=== PATIENT | female | born 1945 | race Caucasian/White ===

== ENCOUNTER 2020-10-05 08:48 | Outpatient (REF) | payer MEDICARE, SELFPAY ==
[2020-10-05 10:54] LABS: Anion Gap 14 (12-20); Blood Urea Nitrogen 27 mg/dL (9-16); Carbon Dioxide 22 mmol/L (22-29); Chloride 108 mmol/L (96-108); Estimated Glomerular Filt Rate 51; Glucose Fasting 196 mg/dL (60-99); Potassium 4.9 mmol/L (3.3-5.1); Sodium 139 mmol/L (135-145); Uric Acid 5.1 mg/dL (2.4-5.7)
[2020-10-05 10:58] LABS: Estimated Average Glucose 148 mg/dL; Hemoglobin A1c % 6.8 %
[2020-10-05 11:09] LABS: Microalbum/Creatinine Ratio Ur 55.7 ug/mg cr
== END 2020-10-05 08:49 | disposition home or self-care (01) ==
LOC: HO.10HDL 08:48
PROVIDERS: Visit Provider Family Medicine
DX: I10 Essential (primary) hypertension (principal); E11.9 Type 2 diabetes mellitus without complications; M10.9 Gout, unspecified
CPT/HCPCS: 36415; 80051; 82043; 82565; 82947; 83036; 84520; 84550

== ENCOUNTER 2021-01-29 12:42 | Outpatient (REF) | payer MEDICARE, SELFPAY ==
--- NOTE | ~2021-01-29 | MM_ITS ---
EXAMINATION: MM SCREENING DIGITAL BREAST TOMOSYNTHESIS, BILATERAL CLINICAL INFORMATION: Screening. Asymptomatic. The lifetime risk of breast cancer based on the Tyrer-Cuzick Model is 4%. COMPARISON: Mammography: 12/29/2018, 11/30/2017, 11/20/2016 TECHNIQUE: Digital breast tomosynthesis is performed in both the craniocaudal and mediolateral oblique views along with computer-aided detection (CAD). Synthesized 2D images are generated from the tomosynthesis. Additional left MLO view is provided. FINDINGS: There are scattered areas of fibroglandular density (ACR BI-RADS breast composition Category b). There are no significant masses, abnormal calcifications, or other abnormalities. Parenchymal pattern is similar to prior exams. No developing density. There are scattered bilateral benign round and rim predominantly dermal calcifications again noted similar to prior studies. MM/MM tomosynthesis screening BI IMPRESSION: No mammographic evidence of malignancy. ASSESSMENT: BI-RADS 2: Benign RECOMMENDATION: Routine annual mammography screening. This patient's information was entered into a reminder system with a target due date for their next mammogram.
== END 2021-01-29 12:43 | disposition home or self-care (01) ==
LOC: HO.MAMMO 12:42
PROVIDERS: Visit Provider Family Medicine
DX: Z12.31 Encounter for screening mammogram for malignant neoplasm of breast (principal)
CPT/HCPCS: 77063; 77067

== ENCOUNTER 2021-03-25 09:11 | Outpatient (REF) | payer MEDICARE, SELFPAY ==
[2021-03-25 11:16] LABS: Anion Gap 13 (12-20); Blood Urea Nitrogen 36 mg/dL (9-16); Carbon Dioxide 25 mmol/L (22-29); Chloride 107 mmol/L (96-108); Estimated Glomerular Filt Rate 37; Glucose Fasting 177 mg/dL (60-99); Potassium 4.4 mmol/L (3.3-5.1); Sodium 141 mmol/L (135-145)
[2021-03-25 11:46] LABS: Estimated Average Glucose 151 mg/dL; Hemoglobin A1c % 6.9 %
== END 2021-03-25 09:12 | disposition home or self-care (01) ==
LOC: HO.10HDL 09:11
PROVIDERS: PCP Family Medicine; Visit Provider Family Medicine
DX: I10 Essential (primary) hypertension (principal); E11.9 Type 2 diabetes mellitus without complications
CPT/HCPCS: 36415; 80051; 82565; 82947; 83036; 84520

== ENCOUNTER 2021-06-20 09:49 | Outpatient (REF) | payer MEDICARE, SELFPAY ==
[2021-06-20 10:36] LABS: MANUAL DIFF FLAG NO
[2021-06-20 10:40] LABS: Basophils Percent Auto 0.8 % (0-2); Eosinophils Absolute Auto 0.2 X10*3/uL (0.0-0.4); Hematocrit 37.7 % (37.0-47.0); Hemoglobin 12.3 g/dl (12.0-16.0); Imm Gran Abs Auto 0.02 X10*3/uL (0.00-0.03); Imm Gran Pct Auto 0.5 % (0.0-0.4); Lymphocytes Absolute Auto 1.1 X10*3/uL (1.2-4.9); Lymphocytes Percent Auto 30.2 % (20-40); Mean Corpuscular HGB Conc 32.6 g/dl (31.0-35.0); Mean Corpuscular Hemoglobin 32.5 pg (27.0-33.0); Mean Corpuscular Volume 99.5 fL (80.0-98.0); Mean Platelet Volume 9.7 fL (9.4-12.3); Monocytes Absolute Auto 0.4 X10*3/uL (0.1-1.2); Monocytes Percent Auto 10.6 % (2-11); Neutrophils Absolute Auto 2.03 x10*3/uL (2.0-8.3); Neutrophils Percent Auto 53.9 % (45-73); Platelet Count 179 X10*3/uL (160-400); Red Blood Count 3.79 X10*6/uL (4.20-5.50); Red Cell Distribution Width 13.3 % (11.0-16.0); White Blood Count 3.8 X10*3/uL (4.8-10.8)
[2021-06-20 10:56] LABS: Blood Urea Nitrogen 33 mg/dL (9-16); Estimated Glomerular Filt Rate 41
== END 2021-06-20 09:50 | disposition home or self-care (01) ==
LOC: HO.10HDL 09:49
PROVIDERS: Visit Provider Family Medicine
DX: I10 Essential (primary) hypertension (principal); D72.819 Decreased white blood cell count, unspecified
CPT/HCPCS: 36415; 82565; 84520; 85025

== ENCOUNTER 2021-07-25 10:55 | Outpatient (REF) | payer MEDICARE, SELFPAY ==
[2021-07-25 14:28] LABS: Estimated Average Glucose 148 mg/dL; Hemoglobin A1c % 6.8 %
[2021-07-25 14:42] LABS: Anion Gap 12 (12-20); Blood Urea Nitrogen 47 mg/dL (9-16); Carbon Dioxide 26 mmol/L (22-29); Chloride 108 mmol/L (96-108); Estimated Glomerular Filt Rate 31; Glucose Fasting 159 mg/dL (60-99); Potassium 5.5 mmol/L (3.3-5.1); Sodium 140 mmol/L (135-145)
== END 2021-07-25 10:56 | disposition home or self-care (01) ==
LOC: HO.10HDL 10:55
PROVIDERS: Visit Provider Family Medicine
DX: I10 Essential (primary) hypertension (principal); E11.9 Type 2 diabetes mellitus without complications
CPT/HCPCS: 36415; 80051; 82565; 82947; 83036; 84520

== ENCOUNTER 2021-10-18 09:43 | Outpatient (REF) | payer MEDICARE, SELFPAY ==
[2021-10-18 12:06] LABS: MANUAL DIFF FLAG NO
[2021-10-18 12:09] LABS: Basophils Percent Auto 0.7 % (0-2); Eosinophils Absolute Auto 0.1 X10*3/uL (0.0-0.4); Eosinophils Percent Auto 3.4 % (0-4); Hematocrit 39.5 % (37.0-47.0); Hemoglobin 12.9 g/dl (12.0-16.0); Imm Gran Abs Auto 0.01 X10*3/uL (0.00-0.03); Imm Gran Pct Auto 0.2 % (0.0-0.4); Lymphocytes Absolute Auto 1.3 X10*3/uL (1.2-4.9); Lymphocytes Percent Auto 30.1 % (20-40); Mean Corpuscular HGB Conc 32.7 g/dl (31.0-35.0); Mean Platelet Volume 9.6 fL (9.4-12.3); Monocytes Absolute Auto 0.4 X10*3/uL (0.1-1.2); Monocytes Percent Auto 10.6 % (2-11); Neutrophils Absolute Auto 2.3 x10*3/uL (2.0-8.3); Platelet Count 193 X10*3/uL (160-400); Red Blood Count 4.03 X10*6/uL (4.20-5.50); Red Cell Distribution Width 13.2 % (11.0-16.0); White Blood Count 4.2 X10*3/uL (4.8-10.8)
[2021-10-18 12:28] LABS: Alanine Aminotransferase 16 U/L (0-31); Albumin Level 4.2 g/dL (3.5-5.0); Alkaline Phosphatase 52 U/L (39-117); Anion Gap 12 (12-20); Aspartate Amino Transferase 19 U/L (5-31); Bilirubin Total 0.5 mg/dL (0.0-1.0); Blood Urea Nitrogen 34 mg/dL (9-16); Carbon Dioxide 27 mmol/L (22-29); Chloride 104 mmol/L (96-108); Estimated Glomerular Filt Rate 51; Glucose Fasting 202 mg/dL (60-99); Potassium 4.4 mmol/L (3.3-5.1); Sodium 139 mmol/L (135-145)
== END 2021-10-18 09:44 | disposition home or self-care (01) ==
LOC: HO.10HDL 09:43
PROVIDERS: Visit Provider Family Medicine
DX: R06.02 Shortness of breath (principal); N18.30 Chronic kidney disease, stage 3 unspecified; E83.52 Hypercalcemia
CPT/HCPCS: 36415; 80053; 85025

== ENCOUNTER → 2022-01-23 09:31 | Outpatient (REF) | payer MEDICARE, SELFPAY ==
--- NOTE | 2022-01-23 09:35 | CA_ITS ---
Transthoracic Echocardiogram Patient (Last, First, Middle): Cristy Simmons M Gender: Female Date of : 1945 Age: 76 Procedure Date: 01/23/2022 Procedure Type: Transthoracic Echocardiogram Location: OP Height: 162.56 cm Weight: 117.94 kg BSA: 2.19 m2 Heart Rate: bpm BP: 118 / 70 mmHg Business Systems Manager: JAI Referring MD: Nhan Simons MD Symptoms: R01.1 [place], I25.10 ASCD W/O ANGINA Study Quality: Adequate ECG Rhythm: Sinus Conclusions: - The left ventricular systolic function is normal. The calculated ejection fraction is 63% by biplane method. - There is mild aortic valve stenosis. Findings Left Ventricle Normal left ventricular cavity size. There is mildly increased left ventricular wall thickness. The left ventricular systolic function is normal. The calculated ejection fraction is 63% by biplane method. Regional wall motion abnormalities can not be excluded due to suboptimal endocardial definition. E/E prime ratio is between 8 and 15 consistent with indeterminate filling pressures. Evidence suggests grade I (mild) diastolic dysfunction. Right Ventricle Normal right ventricular cavity size. There is normal right ventricular systolic function. Atria The left atrium is mildly dilated. The right atrium is normal in size. Aortic Valve There is moderate calcification of the aortic valve. There is mild aortic valve stenosis. The mean gradient is 9 mmHg. The aortic valve area is 1.43 cm2. There is no aortic valve regurgitation. Dimensionless index 0.38. Mitral Valve There is mild mitral annular calcification. There is trace mitral valve regurgitation. There is no mitral valve stenosis. Pulmonic Valve The pulmonic valve is likely normal. Tricuspid Valve There is trace tricuspid valve regurgitation. The pulmonary artery systolic pressure is normal. Great Vessels The aortic annulus, sinuses of valsalva, and asc aorta are normal in size. Venous The inferior vena cava is normal in size and collapses greater than 50% with inspiration. Pericardium/Pleural There is no evidence of pericardial effusion. Prior Study Comparison Changes noted compared to prior study dated: 04/05/2020. Previously described wall motion abnormalities not clearly identified, but image quality is also suboptimal to assess wall motion. Measurements 2D Linear Measurements IVSd: 1.07 0.6-0.9/0.6-1.0 cm LVIDd: 4.87 3.9-5.3/4.2-5.9 cm LVIDd Index: 2.22 2.4-3.2/2.2-3.1 cm/m2 LVIDs: 3.08 2.0-3.6 cm LVPWd: 1.02 0.7-1.1 cm LA Diam: 4.60 2.7-3.8/3.0-4.0 cm LAIDs Index: 2.10 1.5-2.3 cm/m2 LV Mass: 230.52 67-162/88-224 g LV Mass Index: 105.26 43-95/49-115 g/m2 LVOT Diam: 2.10 3.0+(-)1.3 cm 2D Systolic Function EF 4C: 63.90 >55% EF 2C: 60.60 >55% EF BiP: 62.50 >55% Mitral Valve MV Pk E: 0.80 MV PK A: 0.76 MV Decel Time: 227.00 E/A: 1.10 E'Lateral: 9.25 E'Medial: 4.19 E/E' Med: 19.10 E/E' Lat: 8.70 PHT: 66.00 MVA PHT: 3.33 Decel [place]: 3.53 Aortic Valve AoV Pk Mau: 1.99 AoV Mn Mau: 1.43 AoV VTI: 0.56 AoV Pk Grad: 16.00 Aov Mn Grad: 9.00 JEAN-PIERRE Cont.VTI: 1.43 LVOT LVOT Pk Mau: 0.76 LVOT Mn Mau: 0.55 LVOT VTI: 0.23 LVOT Pk Grad: 2.00 LVOT Mn Grad: 1.00 LVOT Diam: 2.10 LVOT Area: 3.46 Diastolic Function MV Pk E: 0.80 MV Pk A: 0.76 E/A: 1.10 E'Medial: 4.19 E/E' Med: 19.10 E' Laterial: 9.25 E/E' Lat: 8.70 Right Ventricle TAPSE (mm): 17.10 TVS' Mau: 10.20 Tricuspid Valve TR Pk Mau: 2.19 TR Pk Grad: 19.00 RA Press: 3.00 RVSP: 22.00 Great Vessels Aorta Sinus of Valsalva: 2.91 2.0-3.[address] [place]: 2.54 1.7-3.4 cm Ao Asc: 3.10 2.1-3.4 cm Updated in Other Vendor System with Status of Final Leonid Mendoza MD electronically signed on 01/24/2022 3:30:05 PM with status of Final
== END ==
LOC: HO.CARD 09:31
PROVIDERS: PCP Family Medicine; Visit Provider Family Medicine
DX: I25.10 Atherosclerotic heart disease of native coronary artery without angina pectoris (principal); R01.1 Cardiac murmur, unspecified
CPT/HCPCS: 93306

== ENCOUNTER 2022-01-30 13:10 | Outpatient (REF) | payer MEDICARE, SELFPAY ==
--- NOTE | ~2022-01-30 | MM_ITS ---
EXAMINATION: MM SCREENING DIGITAL BREAST TOMOSYNTHESIS, BILATERAL CLINICAL INFORMATION: Screening. Asymptomatic. The lifetime risk of breast cancer based on the Tyrer-Cuzick Model is 4%. COMPARISON: Mammography: 01/29/2021, 12/29/2018, 11/30/2017 TECHNIQUE: Digital breast tomosynthesis is performed in both the craniocaudal and mediolateral oblique views along with computer-aided detection (CAD). Synthesized 2D images are generated from the tomosynthesis. FINDINGS: There are scattered areas of fibroglandular density (ACR BI-RADS breast composition Category b). Background stromal and fibroglandular densities are similar to prior exams. There is no interval mass or developing density or architectural abnormality. Again, there are numerous bilateral scattered groupings of punctate round and rim and predominantly dermal calcifications. The axilla and skin contours are unremarkable. There are no significant changes from prior studies. MM/MM tomosynthesis screening BI IMPRESSION: No mammographic evidence of malignancy. ASSESSMENT: BI-RADS 2: Benign RECOMMENDATION: Routine annual mammography screening. This patient's information was entered into a reminder system with a target due date for their next mammogram.
== END 2022-01-30 13:11 | disposition home or self-care (01) ==
LOC: HO.MAMMO 13:10
PROVIDERS: Visit Provider Family Medicine
DX: Z12.31 Encounter for screening mammogram for malignant neoplasm of breast (principal)
CPT/HCPCS: 77063; 77067

== ENCOUNTER → 2022-03-26 14:20 | Outpatient (BNVA) | payer MEDICARE, SELFPAY | PROVIDERS: PCP Family Medicine; Referring Provider Family Medicine; Visit Provider Internal Medicine | DX: I25.10 Atherosclerotic heart disease of native coronary artery without angina pectoris (principal); E78.2 Mixed hyperlipidemia; I35.0 Nonrheumatic aortic (valve) stenosis; I10 Essential (primary) hypertension; E11.8 Type 2 diabetes mellitus with unspecified complications; Z79.82 Long term (current) use of aspirin; Z95.1 Presence of aortocoronary bypass graft | CPT/HCPCS: 93005; 99212 ==

== ENCOUNTER 2022-04-09 12:17 | Day surgery (SDC) | payer MEDICARE, SELFPAY ==
[2022-04-03 12:05] VITALS: BMI 36.3
[2022-04-09 12:39] VITALS: BMI 34.6
[2022-04-09 12:40] VITALS: BP 151/56; PULSE 45; RESP 18; TEMP 36.2; O2SAT 98
[2022-04-09] MEDS: Lactated Ringers 1,000 ML 50 ML IVCONT (13:06)
[2022-04-09] MEDS: Sodium Phosphate,Mono-Dibasic 133 ML ENEMA PR ×2 (13:11→13:26)
--- NOTE | 2022-04-09 13:41 | P.CONAN_ITS ---
[facility] Active Problems Active Problems: All Active Problems (Updated 04/03/22 @ 11:59 by Shawna Bliss RN) Status post coronary artery bypass graft (Acute) Nonrheumatic aortic (valve) stenosis (Acute) Mixed hyperlipidemia (Acute) Type 2 diabetes mellitus with unspecified complications (Acute) Essential hypertension (Acute) Atherosclerotic cardiovascular disease (Acute) Past Medical History Medical History Atherosclerotic cardiovascular disease Chronic pain Essential hypertension Gout Lumbar herniated disc Mixed hyperlipidemia Neuropathy Nonrheumatic aortic (valve) stenosis On beta padmini at home Scoliosis Spinal stenosis Type 2 diabetes mellitus with unspecified complications Family History Family History (Updated 03/26/22 @ 14:36 by RICHIE Russell) Father No problems noted. Mother Diabetes Hypertension Family history of problems with anesthesia: No Surgical History Surgical History (Updated 04/03/22 @ 11:31 by Shawna Bliss RN) History of esophagogastroduodenoscopy (EGD) History of left knee replacement History of quadruple bypass Hx of colonoscopy History of Problems with Anesthesia: No Social History Social History (Updated 03/26/22 @ 14:34 by RICHIE Russell) Are you a primary personal carer to a significant other at home: No Do you presently have visiting nurse or other home services: No Patient Tobacco Use Status: Never used Tobacco Use of substances other than those prescribed or required for medical reasons: No Have you been hit, kicked, punched, or otherwise hurt by someone within the past year? If so, by whom?: No Are you DNR?: No Advance Directives: No Advance Directives Information Provided: Yes Advance Directives on File: No Recently lost weight without trying: No Eating poorly because of decreased appetite: No Nutrition Risks: No Nutritional Risk Patient : No Meds Allergies Allergy/AdvReac Type Severity Reaction Status Date / Time hydromorphone [Dilaudid] Allergy Unknown Anaphylaxis Verified 04/03/22 12:02 meperidine [Demerol] Allergy Unknown Anaphylaxis Verified 04/03/22 12:02 empagliflozin AdvReac High Verified 04/03/22 12:02 [From Jardiance] Sugars, felt loggy [id number] Reductase AdvReac Muscle Pain Verified 04/03/22 11:36 Inhibitor Active Medications: Current Medications Lactated Ringer's (Lr) 1,000 mls @ 50 mls/hr IVCONT .Q20H NARINDER Last Admin: 04/09/22 13:06 Dose: 50 mls/hr Ondansetron HCl (Ondansetron Hcl 4 Mg/2 Ml Vial) 4 mg IVPUSH ONCE PRN PRN Reason: Nausea and Vomiting Sodium Biphosphate/Sodium Phosphate (Sodium Phosphate,[place]-Dibasic 133 Ml Enema) 133 ml IA ONCE PRN PRN Reason: Poor Colonoscopy Prep Results Last Admin: 04/09/22 13:26 Dose: 133 ml Home Medications Medication Instructions Recorded Confirmed Last Taken Type allopurinol 300 mg tablet 300 mg PO DAILY 03/26/22 04/03/22 Unknown History amlodipine 10 mg tablet 10 mg PO DAILY 03/26/22 04/03/22 Unknown History aspirin 81 mg tablet,delayed 81 mg PO DAILY 03/26/22 04/03/22 Unknown History release celecoxib 200 mg capsule mg PO BID 03/26/22 03/26/22 Unknown History metoprolol tartrate 25 mg tablet 25 mg PO BID 03/26/22 04/03/22 Unknown History metoprolol tartrate 50 mg tablet 50 mg PO BID 03/26/22 04/03/22 Unknown History pantoprazole 40 mg tablet,delayed 40 mg PO QPM 03/26/22 04/03/22 Unknown History release Exam Exam Date and Time: April 09, 2022 1341 Height,Weight and Vital Signs: Height 5 ft 5 in Weight 94.347 kg Last Vital Signs Temp 97.2 F 04/09/22 12:40 Pulse 45 L 04/09/22 12:40 Resp 18 04/09/22 12:40 BP 151/56 H 04/09/22 12:40 Pulse Ox 98 04/09/22 12:40 O2 Del Method 04/09/22 12:40 Airway Loose/Missing/Broken Teeth: Yes and Lower Heart: rrr Lungs: cleat Assessment and Plan Final Anesthetic Review Family History of Problems with Anesthesia: No History of Problems with Anesthesia: No NPO: Yes ASA Class: III Final Preanesthetic Review: No Changes in Pt Med Stat, Meds/Allgs Chart Reviewed, Consent Obtained/Reviewed and Anes Risks/Benef Reviewed Patient Risk: Intermediate Procedure Risk: Low Anesthetic Plan Anesthetic Plan: MAC: Disposition: Inp. Admit - IMC
[2022-04-09 14:56] VITALS: BP 134/62; PULSE 56; RESP 16; TEMP 36.4; O2SAT 96
--- NOTE | 2022-04-09 15:07 | PM.OP ---
Brief Operative Note Date of Service: 04/09/22 Pre-op diagnosis: Screening Post-op diagnosis: other (Diverticulosis, Limited bowel prep) Procedure: Colonoscopy to the cecum Surgeon: Valente Manzo Anesthesia: MAC Was an Prn Occupational Therapist used for this Procedure?: No Estimated blood loss (mL): 0 Pathology: none sent Condition: stable Disposition: PACU
[2022-04-09 15:11] VITALS: BP 147/66; PULSE 51; RESP 15; O2SAT 96
[2022-04-09 15:26] VITALS: BP 136/60; PULSE 45; RESP 17; O2SAT 94
[2022-04-09 15:41] VITALS: BP 151/59; PULSE 48; RESP 18; TEMP 36.2; O2SAT 96
--- NOTE | 2022-04-10 04:44 | OP_ITS ---
SURGEON: Valente Manzo MD INDICATIONS: The patient presents for evaluation of colorectal cancer screening. Full consent obtained from her for this, including risks of bleeding and perforation. PREOPERATIVE DIAGNOSIS: Colorectal cancer screening. POSTOPERATIVE DIAGNOSIS: PROCEDURE PERFORMED: ESTIMATED BLOOD LOSS: COMPLICATIONS: ANESTHESIA: ASSISTANTS: SPECIMENS: PROCEDURE: Colonoscopy to the cecum. POSTOPERATIVE DIAGNOSES: Colorectal cancer screening, diverticulosis, internal hemorrhoids, limited prep. PREOPERATIVE MEDICATION USED: Monitored anesthesia care. DESCRIPTION OF PROCEDURE: The patient was placed in the left lateral decubitus position. The digital rectal exam revealed no abnormalities. The Olympus video pediatric colonoscope was entered into the rectum and advanced to the cecum with the assistance of abdominal wall pressure. Once in the cecum, I did identify normal-appearing cecal pouch with appendiceal orifice and a normal-appearing ileocecal valve. The entire cecum and ileocecal valve appeared normal. There was transillumination of light deep in the right lower quadrant. The scope was then slowly withdrawn, assessing all mucosal surfaces carefully. Preparation in the ascending colon and transverse colon was quite good for the most part. However, preparation in the descending and sigmoid colon was fairly limited with a fair amount of soft or solid stool that had to be irrigated as best as possible, but areas of the mucosa were definitely obscured by stool. I did not visualize any sign of polyps anywhere in the colon, colitis, nor angiodysplasia. There was a mild amount of sigmoid diverticulosis noted. In the rectum, scope was retroflexed visualizing internal hemorrhoids. The scope was straightened and withdrawn from the patient. She tolerated the procedure well and was returned to the recovery area in stable condition. IMPRESSION: 1. Diverticulosis. 2. Internal hemorrhoids. 3. Limited prep, particularly in the descending and sigmoid colon. PLAN: At this point, the patient has been otherwise asymptomatic other than some constipation. I recommended she try some Metamucil and/or MiraLAX on a daily and regular basis. Given the somewhat limited prep, I would recommend that she obtain a Cologuard test from her primary care physician. If this is negative, then she would not need any further screening for colorectal cancer. If the Cologuard test happens to be positive, we would then want to repeat the colonoscopy, but with a 2-day bowel prep instead. She has been given instructions in this regard and this has been discussed with her sister. She was advised to resume aspirin today. MD BELGICA Posadas/DAJA / [id number] MTDD
== END 2022-04-09 16:43 | disposition home or self-care (01) ==
PROVIDERS: PCP Family Medicine; Visit Provider Internal Medicine
PROC: 0DJD8ZZ Inspection of Lower Intestinal Tract, Via Natural or Artificial Opening Endoscopic (ICD-10-PCS; CPT 45378; principal; 2022-04-09 13:40)
DX: Z12.11 Encounter for screening for malignant neoplasm of colon (principal); K57.30 Diverticulosis of large intestine without perforation or abscess without bleeding; K64.8 Other hemorrhoids; K59.00 Constipation, unspecified; I25.10 Atherosclerotic heart disease of native coronary artery without angina pectoris; Z95.1 Presence of aortocoronary bypass graft; I10 Essential (primary) hypertension; E11.9 Type 2 diabetes mellitus without complications; Z79.82 Long term (current) use of aspirin; Z79.899 Other long term (current) drug therapy; Z96.652 Presence of left artificial knee joint
CPT/HCPCS: G0121

== ENCOUNTER 2022-04-15 09:40 | Outpatient (REF) | payer MEDICARE, SELFPAY ==
[2022-04-15 10:33] LABS: MANUAL DIFF FLAG NO
[2022-04-15 10:41] LABS: Basophils Percent Auto 0.6 % (0-2); Eosinophils Absolute Auto 0.2 X10*3/uL (0.0-0.4); Eosinophils Percent Auto 3.6 % (0-4); Hematocrit 37.7 % (37.0-47.0); Imm Gran Abs Auto 0.02 X10*3/uL (0.00-0.03); Imm Gran Pct Auto 0.4 % (0.0-0.4); Lymphocytes Absolute Auto 1.3 X10*3/uL (1.2-4.9); Lymphocytes Percent Auto 25.1 % (20-40); Mean Corpuscular HGB Conc 31.8 g/dl (31.0-35.0); Mean Corpuscular Hemoglobin 31.1 pg (27.0-33.0); Mean Corpuscular Volume 97.7 fL (80.0-98.0); Mean Platelet Volume 9.5 fL (9.4-12.3); Monocytes Absolute Auto 0.5 X10*3/uL (0.1-1.2); Monocytes Percent Auto 9.4 % (2-11); Neutrophils Absolute Auto 3.1 x10*3/uL (2.0-8.3); Neutrophils Percent Auto 60.9 % (45-73); Platelet Count 191 X10*3/uL (160-400); Red Blood Count 3.86 X10*6/uL (4.20-5.50); Red Cell Distribution Width 13.7 % (11.0-16.0)
[2022-04-15 11:09] LABS: Estimated Average Glucose 140 mg/dL; Hemoglobin A1C 149.2406 umol/L; Hemoglobin A1c % 6.5 %
[2022-04-15 11:12] LABS: Alanine Aminotransferase 30 U/L (0-31); Albumin Level 4.3 g/dL (3.5-5.0); Alkaline Phosphatase 69 U/L (39-117); Anion Gap 16 (12-20); Aspartate Amino Transferase 23 U/L (5-31); Bilirubin Total 0.5 mg/dL (0.0-1.0); Blood Urea Nitrogen 35 mg/dL (9-16); Calcium 9.9 mg/dL (8.4-10.2); Carbon Dioxide 22 mmol/L (22-29); Chloride 107 mmol/L (96-108); Estimated Glomerular Filt Rate 41; Glucose Fasting 162 mg/dL (60-99); Sodium 140 mmol/L (135-145); Total Protein 7.1 g/dL (6.5-8.0)
[2022-04-15 11:14] LABS: Alanine Aminotransferase 32 U/L (0-31); Albumin Level 4.3 g/dL (3.5-5.0); Alkaline Phosphatase 70 U/L (39-117); Aspartate Amino Transferase 24 U/L (5-31); Bilirubin Direct 0.2 mg/dL (0.0-0.5); Bilirubin Total 0.5 mg/dL (0.0-1.0); Cholesterol 284 mg/dL; HDL Cholesterol 34 mg/dL; Total Protein 7.2 g/dL (6.5-8.0); Triglycerides 464 mg/dL
== END 2022-04-15 09:41 | disposition home or self-care (01) ==
LOC: HO.10HDL 09:40
PROVIDERS: Absent Provider Family Medicine; Visit Provider Internal Medicine
DX: I25.10 Atherosclerotic heart disease of native coronary artery without angina pectoris (principal); E78.5 Hyperlipidemia, unspecified
CPT/HCPCS: 36415; 80053; 80061; 80076; 82248; 83036; 85025

== ENCOUNTER 2022-07-25 11:04 | Outpatient (REF) | payer MEDICARE, SELFPAY ==
[2022-07-27 04:59] LABS: LDL Cholesterol Direct 124 mg/dL (<100)
== END 2022-07-25 11:05 | disposition home or self-care (01) ==
LOC: HO.10HDL 11:04
PROVIDERS: Visit Provider Internal Medicine
DX: E78.2 Mixed hyperlipidemia (principal); I25.10 Atherosclerotic heart disease of native coronary artery without angina pectoris
CPT/HCPCS: 36415; 83721

== ENCOUNTER 2022-08-26 18:17 | Emergency (ER) | payer MEDICARE, SELFPAY ==
--- NOTE | 2022-08-26 | ECG_ITS ---
Test Reason : CHEST PAIN Blood Pressure : / mmHG Vent. Rate : 079 BPM Atrial Rate : 079 BPM P-R Int : 200 ms QRS Dur : 088 ms QT Int : 414 ms P-R-T Axes : 043 -17 043 degrees QTc Int : 474 ms Normal sinus rhythm Possible Left atrial enlargement Inferior infarct (cited on or before 18-JAN-2003) Anterior infarct (cited on or before 09-JUN-2002) Abnormal ECG When compared with ECG of 15-MAR-2020 11:17, Nonspecific T wave abnormality, improved in Inferior leads QT has lengthened Referred By: Getachew Jay Electronically Signed By:Jordi Lutz
--- NOTE | ~2022-08-26 | XR_ITS ---
EXAMINATION: XR CHEST CLINICAL INFORMATION: Chest pain COMPARISON: Chest x-ray 03/15/2020 TECHNIQUE: Frontal view of the chest was obtained. FINDINGS: The lungs appear clear. No airspace consolidation. No pleural effusion or pneumothorax. Unchanged cardiomediastinal silhouette. No cardiomegaly or evidence pulmonary edema. Intact appearance of sternal fixation with sternal wires and plate and screws. No acute osseous injury identified. XR/XR chest 1V IMPRESSION: No acute pulmonary process.
--- NOTE | 2022-08-26 18:30 | MHC.EDTECH ---
Patient stated This morning I saw my doctor and got 3 high dosed Novocaine shots in my back
[2022-08-26 18:33] VITALS: BP 144/78; BP 179/89; PULSE 88; PULSE 90; RESP 20; TEMP 36.6; O2SAT 98; BMI 36.8
--- NOTE | 2022-08-26 18:33 | ED.CHESTPAIN ---
HPI - Chest Pain General Chief Complaint: Chest Pain Stated Complaint: chest pain Time Seen by Provider: 08/26/22 18:32 Source: patient Mode of arrival: ambulatory Limitations: no limitations History of Present Illness HPI narrative: Patient with significant coronary artery disease status post three-vessel CABG in 2019 on aspirin asymptomatic since surgery noticed to have pain prior to arrival while at rest felt vague sharp pain and doom feeling with questionable fluttering got anxious just prior to arrival lasted for few minutes took 2 baby aspirin at home and worse given 2 more by EMS by the time patient arrived patient did not have any chest pain no diaphoresis no nausea no vomiting Related Data Home Medications Medication Instructions Recorded Confirmed allopurinol 300 mg tablet 300 mg PO DAILY 03/26/22 04/03/22 amlodipine 10 mg tablet 10 mg PO DAILY 03/26/22 04/03/22 aspirin 81 mg tablet,delayed 81 mg PO DAILY 03/26/22 04/03/22 release celecoxib 200 mg capsule mg PO BID 03/26/22 03/26/22 metoprolol tartrate 25 mg tablet 25 mg PO BID 03/26/22 04/03/22 metoprolol tartrate 50 mg tablet 50 mg PO BID 03/26/22 04/03/22 pantoprazole 40 mg tablet,delayed 40 mg PO QPM 03/26/22 04/03/22 release Allergies Allergy/AdvReac Type Severity Reaction Status Date / Time hydromorphone [Dilaudid] Allergy Unknown Anaphylaxis Verified 04/03/22 12:02 meperidine [Demerol] Allergy Unknown Anaphylaxis Verified 04/03/22 12:02 empagliflozin AdvReac High Verified 04/03/22 12:02 [From Jardiance] Sugars, felt loggy [id number] Reductase AdvReac Muscle Pain Verified 04/03/22 11:36 Inhibitor Review of Systems Review of Systems: Yes all other systems are reviewed and are negative [facility] Past Medical History Medical History Atherosclerotic cardiovascular disease Chronic pain Essential hypertension Gout Lumbar herniated disc Mixed hyperlipidemia Neuropathy Nonrheumatic aortic (valve) stenosis On beta padmini at home Scoliosis Spinal stenosis Type 2 diabetes mellitus with unspecified complications Surgical History History of esophagogastroduodenoscopy (EGD) History of left knee replacement History of quadruple bypass Hx of colonoscopy Family History Family History Father No problems noted. Mother Diabetes Hypertension Social History Social History Are you a primary home care nurse to a significant other at home: No Do you presently have visiting nurse or other home services: No Alcohol intake: former Patient Tobacco Use Status: Never used Tobacco Smoked in Last 30 Days: No Use of substances other than those prescribed or required for medical reasons: No Advance Directives: No Advance Directives Information Provided: No Physical Exam Vital Signs: Vital Signs: Last Vital Signs Temp 98.2 F 08/26/22 19:22 Pulse 89 08/26/22 19:22 Resp 19 08/26/22 19:22 BP 181/81 H 08/26/22 19:22 Pulse Ox 96 08/26/22 19:22 O2 Del Method 08/26/22 19:22 BMI result Body Mass Index 36.8 Appearance: Alert. Oriented X3. No acute distress. Eyes: No pallor or icterus ENT: Pharynx normal. Oral Mucosa moist Neck: Normal inspection. Neck supple. CVS: Normal heart rate and rhythm. Pulses normal. Respiratory: No respiratory distress. Equal air entry bilateral, no wheezing/rales/rhonchi local tenderness left anterior chest+ Abdomen: Soft and nontender. Bowel sounds are present, no mass palpable, no CVA tenderness Skin: Skin warm and dry. Normal skin color. Normal skin turgor. Extremities: No lower extremity edema. No calf tenderness Neuro: Oriented X 3. No motor deficit. No sensory deficit.No cerebellar signs , cranial nerves II-XII intact Medical Decision Making Medical Decision Making MDM Narrative: Patient with atypical chest pain 2 sets of high sensitive troponin negative no chest pain during stay in the ER no acute ischemic changes in the EKG advised to follow-up with PCP/plaster whittler for further workup including stress echo Lab Data [facility] Lab Attestation statement: I reviewed the patient's lab results. 08/26/22 19:18 08/26/22 19:18 Labs: Lab Results 08/26/22 08/26/22 08/26/22 Range/Units 19:18 19:18 19:18 WBC 5.1 (4.8-10.8) X10*3/uL RBC 3.86 L (4.20-5.50) X10*6/uL Hgb 12.8 (12.0-16.0) g/dl Hct 37.9 (37.0-47.0) % MCV 98.2 H (80.0-98.0) fL MCH 33.2 H (27.0-33.0) pg MCHC 33.8 (31.0-35.0) g/dl RDW 14.0 (11.0-16.0) % Plt Count 218 (160-400) X10*3/uL MPV 9.4 (9.4-12.3) fL Immature Gran % (Auto) 0.6 H (0.0-0.4) % Neut % (Auto) 63.7 (45-73) % Lymph % (Auto) 23.2 (20-40) % [place] % (Auto) 8.4 (2-11) % Eos % (Auto) 3.3 (0-4) % Baso % (Auto) 0.8 (0-2) % Lymph # (Auto) 1.2 (1.2-4.9) X10*3/uL [place] # (Auto) 0.4 (0.1-1.2) X10*3/uL Eos # (Auto) 0.2 (0.0-0.4) X10*3/uL Baso # (Auto) 0.0 (0.0-0.2) X10*3/uL Abs Immat Gran (auto) 0.03 (0.00-0.03) X10*3/uL Absolute Neuts (auto) 3.3 (2.0-8.3) x10*3/uL Absolute Nucleated RBC 0.000 (0.0-0.012) X10*3/uL Nucleated RBC % (auto) 0.0 (0.0-0.2) /100WBC PT (10.0-13.1) SEC INR (0.9-1.1) D-Dimer High Sensitivty NG/ML Sodium 140 (135-145) mmol/L Potassium 4.8 (3.3-5.1) mmol/L Chloride 107 (96-108) mmol/L Carbon Dioxide 22 (22-29) mmol/L Anion Gap 16 (12-20) BUN 36 H (9-16) mg/dL Creatinine 1.18 (0.5-1.4) mg/dL Estim Creat Clear Calc 48.3 Estimated GFR 45 Random Glucose 182 H (60-115) mg/dL Calcium 10.3 H (8.4-10.2) mg/dL Total Bilirubin 0.4 (0.0-1.0) mg/dL AST 21 (5-31) U/L ALT 18 (0-31) U/L Alkaline Phosphatase 75 (39-117) U/L Troponin I High Sens < 3.5 (<3.5-17.0) ng/L B-Natriuretic Peptide (<100) pg/mL Total Protein 8.7 H D (6.5-8.0) g/dL Albumin 4.7 (3.5-5.0) g/dL 08/26/22 08/26/22 08/26/22 Range/Units 19:18 19:18 21:50 WBC (4.8-10.8) X10*3/uL RBC (4.20-5.50) X10*6/uL Hgb (12.0-16.0) g/dl Hct (37.0-47.0) % MCV (80.0-98.0) fL MCH (27.0-33.0) pg MCHC (31.0-35.0) g/dl RDW (11.0-16.0) % Plt Count (160-400) X10*3/uL MPV (9.4-12.3) fL Immature Gran % (Auto) (0.0-0.4) % Neut % (Auto) (45-73) % Lymph % (Auto) (20-40) % [place] % (Auto) (2-11) % Eos % (Auto) (0-4) % Baso % (Auto) (0-2) % Lymph # (Auto) (1.2-4.9) X10*3/uL [place] # (Auto) (0.1-1.2) X10*3/uL Eos # (Auto) (0.0-0.4) X10*3/uL Baso # (Auto) (0.0-0.2) X10*3/uL Abs Immat Gran (auto) (0.00-0.03) X10*3/uL Absolute Neuts (auto) (2.0-8.3) x10*3/uL Absolute Nucleated RBC (0.0-0.012) X10*3/uL Nucleated RBC % (auto) (0.0-0.2) /100WBC PT 9.6 L (10.0-13.1) SEC INR 0.8 L (0.9-1.1) D-Dimer High Sensitivty 188 NG/ML Sodium (135-145) mmol/L Potassium (3.3-5.1) mmol/L Chloride (96-108) mmol/L Carbon Dioxide (22-29) mmol/L Anion Gap (12-20) BUN (9-16) mg/dL Creatinine (0.5-1.4) mg/dL Estim Creat Clear Calc Estimated GFR Random Glucose (60-115) mg/dL Calcium (8.4-10.2) mg/dL Total Bilirubin (0.0-1.0) mg/dL AST (5-31) U/L ALT (0-31) U/L Alkaline Phosphatase (39-117) U/L Troponin I High Sens 7.7 (<3.5-17.0) ng/L B-Natriuretic Peptide 97 (<100) pg/mL Total Protein (6.5-8.0) g/dL Albumin (3.5-5.0) g/dL Independent Interpretation I performed an independent interpretation of an: EKG Interpretation: Normal sinus rhythm heart rate 79 beats per minute normal intervals normal axis Q-waves inferior leads poor progression of R-waves no acute ST T wave changes no change in EKG done on 02/2020 Discharge Plan Discharge Clinical Impression: Chest pain Patient Disposition: Home, Self-Care Instructions: Chest Pain (ED) Additional Instructions: Etiology of chest pain is not very clear Continue medication and follow with plaster whittler for further evaluation including echo and stress test Report to the ER if recurrence of chest pain Prescriptions: No Action metoprolol tartrate 50 mg tablet 50 mg PO BID metoprolol tartrate 25 mg tablet 25 mg PO BID celecoxib 200 mg capsule PO BID amlodipine 10 mg tablet 10 mg PO DAILY allopurinol 300 mg tablet 300 mg PO DAILY pantoprazole 40 mg tablet,delayed release (DR/EC) 40 mg PO QPM aspirin 81 mg tablet,delayed release (DR/EC) 81 mg PO DAILY Interventions: ED Discharge Assessment Last Done: 08/26/22 23:19 Discharge Date/Time: 08/26/22 23:20
[2022-08-26 19:22] VITALS: BP 181/81; PULSE 89; RESP 19; TEMP 36.8; O2SAT 96
[2022-08-26 19:22] LABS: MANUAL DIFF FLAG NO
--- NOTE | 2022-08-26 19:27 | MHC.EDTECH ---
patient states she has a graft in left forearm, and has diabetes but is not insulin dependent, just monitoring.
[2022-08-26 19:44] LABS: Basophils Percent Auto 0.8 % (0-2); Eosinophils Absolute Auto 0.2 X10*3/uL (0.0-0.4); Eosinophils Percent Auto 3.3 % (0-4); Hematocrit 37.9 % (37.0-47.0); Hemoglobin 12.8 g/dl (12.0-16.0); Imm Gran Abs Auto 0.03 X10*3/uL (0.00-0.03); Imm Gran Pct Auto 0.6 % (0.0-0.4); Lymphocytes Absolute Auto 1.2 X10*3/uL (1.2-4.9); Lymphocytes Percent Auto 23.2 % (20-40); Mean Corpuscular HGB Conc 33.8 g/dl (31.0-35.0); Mean Corpuscular Hemoglobin 33.2 pg (27.0-33.0); Mean Corpuscular Volume 98.2 fL (80.0-98.0); Mean Platelet Volume 9.4 fL (9.4-12.3); Monocytes Absolute Auto 0.4 X10*3/uL (0.1-1.2); Monocytes Percent Auto 8.4 % (2-11); Neutrophils Absolute Auto 3.3 x10*3/uL (2.0-8.3); Neutrophils Percent Auto 63.7 % (45-73); Platelet Count 218 X10*3/uL (160-400); Red Blood Count 3.86 X10*6/uL (4.20-5.50); White Blood Count 5.1 X10*3/uL (4.8-10.8)
--- NOTE | 2022-08-26 19:45 | PC.NURSE ---
PT a&ox4, denies any pain. States no pain, just this weird feeling in my chest . PT ambulatory to bedside commode with staff assist. Denies CP, SOB or dizziness.
[2022-08-26 19:47] LABS: Alanine Aminotransferase 18 U/L (0-31); Albumin Level 4.7 g/dL (3.5-5.0); Alkaline Phosphatase 75 U/L (39-117); Anion Gap 16 (12-20); Aspartate Amino Transferase 21 U/L (5-31); Bilirubin Total 0.4 mg/dL (0.0-1.0); Blood Urea Nitrogen 36 mg/dL (9-16); Calcium 10.3 mg/dL (8.4-10.2); Carbon Dioxide 22 mmol/L (22-29); Chloride 107 mmol/L (96-108); Creatinine Clr Calc Pharmacy 48.3; Estimated Glomerular Filt Rate 45; Glucose Random 182 mg/dL (60-115); Potassium 4.8 mmol/L (3.3-5.1); Sodium 140 mmol/L (135-145); Total Protein 8.7 g/dL (6.5-8.0)
[2022-08-26 19:48] LABS: Troponin-I High Sensitivity < 3.5 ng/L (<3.5-17.0)
[2022-08-26 19:49] LABS: B Type Natriuretic Peptide 97 pg/mL (<100)
[2022-08-26 19:58] LABS: INTERNATIONAL NORM RATIO 0.8 (0.9-1.1); Prothrombin Time 9.6 SEC (10.0-13.1)
[2022-08-26 20:00] LABS: D Dimer High Sensitivity 188 NG/ML
[2022-08-26 22:37] LABS: Troponin-I High Sensitivity 7.7 ng/L (<3.5-17.0)
== END 2022-08-26 23:20 | disposition home or self-care (01) ==
PROVIDERS: Emergency Provider Internal Medicine; PCP Family Medicine
DX: R07.9 Chest pain, unspecified (principal); E11.9 Type 2 diabetes mellitus without complications; I10 Essential (primary) hypertension; E78.5 Hyperlipidemia, unspecified; Z95.1 Presence of aortocoronary bypass graft; Z79.82 Long term (current) use of aspirin; Z79.02 Long term (current) use of antithrombotics/antiplatelets; Z79.899 Other long term (current) drug therapy
CPT/HCPCS: 36415; 71045; 80053; 83880; 84484; 85025; 85379; 85610; 93005; 99283; 99285

== ENCOUNTER → 2022-09-05 13:28 | Outpatient (REF) | payer MEDICARE, SELFPAY ==
--- NOTE | 2022-09-05 13:33 | CA_ITS ---
Transthoracic Echocardiogram Patient (Last, First, Middle): Cristy Simmons M Gender: Female Date of : 1945 Age: 76 Procedure Date: 09/05/2022 Procedure Type: Transthoracic Echocardiogram Location: OP Height: 165.1 cm Weight: 91.63 kg BSA: 1.99 m2 Heart Rate: 51 bpm BP: 131 / 64 mmHg Telephone Sales Representative: Referring MD: Leonid Mendoza MD Quality Control Tech Raw Materials: Fan Herrera MD Symptoms: I25.10 - Atherosclerotic heart disease of picayune coronary artery without... Study Quality: Technically Difficult ECG Rhythm: Bradycardia Conclusions: - 1. Normal LV systolic function with regional wall motion abnormality suggestive underlying coronary artery disease with impaired relaxation filling pattern 2. Mildly dilated left atrium 3. Mildly dilated right ventricle with low normal RV systolic function 4. Mild aortic stenosis 5. Normal RV systolic pressure 6. No gross pericardial effusion Findings Procedure Information Contrast agent, definity, is being given per protocol without apparent complications. Left Ventricle Normal left ventricular size, thickness, and systolic function. The visually estimated ejection fraction is between 65-70%. Spectral Doppler is indicative of an impaired relaxation filling pattern. Wall Motion Rest Echo Findings The inferoseptal wall and basal inferior segment are hypokinetic. All other scored wall segments showed normal motion. Right Ventricle Mildly increased right ventricular cavity size. There is mildly decreased right ventricular systolic function. Atria The left atrium is mildly dilated. Interatrial shunt cannot be excluded. The right atrium was not well visualized. Aortic Valve The aortic valve was not well visualized. There is mild calcification of the aortic valve. There is mild aortic valve stenosis. The peak aortic gradient is 14 mmHg.The mean gradient is 9 mmHg. There is no aortic valve regurgitation. Mitral Valve There is mild anterior and posterior mitral leaflet thickening. There is mild mitral annular calcification. There is trace mitral valve regurgitation. There is no mitral valve stenosis. Pulmonic Valve The pulmonic valve was not well visualized. Tricuspid Valve Likely normal tricuspid valve structure and function. There is trace tricuspid valve regurgitation. The right ventricular systolic pressure is normal. The right ventricular systolic pressure is 23 mmHg. Normal right atrial pressure. There is no evidence of pulmonary hypertension. Great Vessels All visible segments of the aorta are normal in size. The pulmonary artery was not well visualized. Venous The inferior vena cava is normal in size and collapses greater than 50% with inspiration. Pericardium/Pleural There is no evidence of pericardial effusion. Prior Study Comparison No significant change compared to prior study dated: 01/23/2022. Measurements 2D Linear Measurements IVSd: 1.01 0.6-0.9/0.6-1.0 cm LVIDd: 4.79 3.9-5.3/4.2-5.9 cm LVIDd Index: 2.41 2.4-3.2/2.2-3.1 cm/m2 LVIDs: 3.08 2.0-3.6 cm LVPWd: 1.11 0.7-1.1 cm LA Diam: 4.70 2.7-3.8/3.0-4.0 cm LAIDs Index: 2.36 1.5-2.3 cm/m2 LV Mass: 228.84 67-162/88-224 g LV Mass Index: 114.99 43-95/49-115 g/m2 LVOT Diam: 2.10 3.0+(-)1.3 cm 2D Systolic Function EF 4C: 61.70 >55% EF 2C: 70.80 >55% EF BiP: 67.10 >55% Mitral Valve MV Pk E: 0.64 MV PK A: 1.00 MV Decel Time: 301.00 E/A: 0.60 E'Lateral: 8.27 E'Medial: 3.59 E/E' Med: 17.80 E/E' Lat: 7.70 PHT: 88.00 MVA PHT: 2.50 Decel Noble: 2.12 Aortic Valve AoV Pk Mau: 1.88 AoV Mn Mau: 1.40 AoV VTI: 0.61 AoV Pk Grad: 14.00 Aov Mn Grad: 9.00 JEAN-PIERRE Cont.VTI: 1.27 LVOT LVOT Pk Mau: 0.74 LVOT Mn Mau: 0.48 LVOT VTI: 0.22 LVOT Pk Grad: 2.00 LVOT Mn Grad: 1.00 LVOT Diam: 2.10 LVOT Area: 3.46 Diastolic Function MV Pk E: 0.64 MV Pk A: 1.00 E/A: 0.60 E'Medial: 3.59 E/E' Med: 17.80 E' Laterial: 8.27 E/E' Lat: 7.70 Right Ventricle TAPSE (mm): 16.50 Tricuspid Valve TR Pk Mau: 2.23 TR Pk Grad: 20.00 RA Press: 3.00 RVSP: 23.00 Great Vessels Aorta Sinus of Valsalva: 3.20 2.0-3.5 cm Ao Asc: 3.10 2.1-3.4 cm Pulmonary Valve PV Pk Mau: 0.87 Peak PV Grad: 3.00 Updated in Other Vendor System with Status of Final Fan Herrera MD electronically signed on 09/06/2022 11:28:00 AM with status of Final
== END ==
LOC: HO.CARD 13:28
PROVIDERS: PCP Family Medicine; Visit Provider Internal Medicine
DX: I25.10 Atherosclerotic heart disease of native coronary artery without angina pectoris (principal)
CPT/HCPCS: 93306; Q9957

== ENCOUNTER → 2022-09-11 09:24 | Outpatient (REF) | payer MEDICARE, SELFPAY ==
--- NOTE | ~2022-09-11 | NM_ITS ---
Lexiscan Myocardial perfusion study Indication: Coronary artery disease, assess for ischemia Technique: The patient was brought in for a Lexiscan perfusion study on 09/11/2022 and was injected 0.4 mg of Lexiscan intravenously. Within a minute of this injection 35 mCi of sestamibi was given intravenously. Images were obtained using the SPECT gamma camera interlaced with the gating device. Images were obtained in supine position. Resting perfusion study was performed on 09/12/2022. Patient was administered 35 mCi of sestamibi intravenously at rest. Images were then obtained in supine position. Total DLP 116mGy-cm. Images were processed with the software and compared side to side in short axis, horizontal long axis and vertical long axis views. Findings: Raw acquisition reviewed. The stress perfusion study showed mildly reduced tracer uptake in the basal to mid lateral wall; distal part of anterolateral wall. With CT attenuation correction, the basal anterolateral wall defect still seen. Distal lateral defect seems to improve. The gated study shows low normal LV systolic function with calculated LVEF of 51%. LV cavity is normal in size. The gated study shows diminished contractility in the basal to mid lateral wall. Resting study shows diminished tracer uptake in the distal part of lateral wall. Mildly reduced uptake in the basal to mid lateral wall. Gating at rest reveals reduced contractility in the basal to mid lateral wall. Gated LVEF 32% but visually appears higher. The findings are consistent with basal to mid lateral defect with reversible and fixed components. NM/NM julieta perf SPECT rest & str Impression: 1. Myocardial perfusion imaging study shows ischemia/infarct pattern in the basal to mid lateral wall. 2. Gated LVEF is does not appear reliable; 51% during stress and 32% during rest. Correlate with echocardiogram. 3. Transient ischemic dilatation not present. EKG component of the test reported separately.
--- NOTE | 2022-09-11 09:27 | CA_ITS ---
Acquisition Time: 2022-09-11 10:01:57 Total Exercise Time: 00:02:01 Test Indications: CHEST PAIN Medications: ALLOPURINOL AMLODIPINE ASA CELECOXIB CLOPIDOGREL METOPROLOL PANTOPRAZOLE Protocol: LEXISCAN Max HR: 084 BPM 57% of Pred: 145 BPM Max BP: 116/070 mmHG Max Work Load: 1.2 METS Pharmacological stress test with Lexiscan injection, while walking very slow on treadmill, with report of significant fatigue, without anginal symptoms, without arrythmia, with normotensive response to injection, with nondiagnostic EKG for ischemia. In recovery she was treated with Aminophylline 75mg IVP to reverse Lexiscan with improvement in fatigue. Nuclear images pending. Test reviewed with Dr Mendoza Referred By: Leonid Mendoza Overread By: DANITZA WOOD
== END ==
LOC: HO.CARD 09:24
PROVIDERS: PCP Family Medicine; Visit Provider Internal Medicine
DX: I25.119 Atherosclerotic heart disease of native coronary artery with unspecified angina pectoris (principal)
CPT/HCPCS: 78452; 93017; A9500; J0280; J2785

== ENCOUNTER → 2022-10-08 14:02 | Outpatient (BNVA) | payer MEDICARE, SELFPAY | PROVIDERS: PCP Family Medicine; Referring Provider Family Medicine; Visit Provider Internal Medicine | DX: I25.10 Atherosclerotic heart disease of native coronary artery without angina pectoris (principal); I35.0 Nonrheumatic aortic (valve) stenosis; I10 Essential (primary) hypertension; E11.8 Type 2 diabetes mellitus with unspecified complications; E78.2 Mixed hyperlipidemia; Z79.899 Other long term (current) drug therapy; Z95.1 Presence of aortocoronary bypass graft | CPT/HCPCS: 99212 ==

== ENCOUNTER 2023-01-06 09:46 | Outpatient (REF) | payer MEDICARE, SELFPAY ==
[2023-01-06 10:55] LABS: Estimated Average Glucose 134 mg/dL; Hemoglobin A1C 150.8986 umol/L; Hemoglobin A1c % 6.3 %
[2023-01-06 11:16] LABS: Anion Gap 17 (12-20); Blood Urea Nitrogen 46 mg/dL (9-16); Carbon Dioxide 22 mmol/L (22-29); Chloride 104 mmol/L (96-108); Estimated Glomerular Filt Rate 32; Glucose Fasting 145 mg/dL (60-99); Potassium 4.9 mmol/L (3.3-5.1); Sodium 138 mmol/L (135-145)
[2023-01-06 11:17] LABS: Cholesterol 299 mg/dL; HDL Cholesterol 32 mg/dL; Triglycerides 499 mg/dL
[2023-01-08 21:12] LABS: LDL Cholesterol Direct 126 mg/dL (<100)
== END 2023-01-06 09:47 | disposition home or self-care (01) ==
LOC: HO.10HDL 09:46
PROVIDERS: Absent Provider Family Medicine; Visit Provider Internal Medicine
DX: E78.2 Mixed hyperlipidemia (principal); I25.10 Atherosclerotic heart disease of native coronary artery without angina pectoris; I10 Essential (primary) hypertension; E11.9 Type 2 diabetes mellitus without complications
CPT/HCPCS: 36415; 80051; 80061; 82565; 82947; 83036; 83721; 84520

== ENCOUNTER 2023-02-04 12:53 | Outpatient (REF) | payer MEDICARE, SELFPAY ==
--- NOTE | ~2023-02-04 | MM_ITS ---
EXAMINATION: MM SCREENING DIGITAL BREAST TOMOSYNTHESIS, BILATERAL CLINICAL INFORMATION: Screening. Asymptomatic. The lifetime risk of breast cancer based on the Tyrer-Cuzick Model is 4%. COMPARISON: Mammography: 01/30/2022, 01/29/2021, 12/29/2018 TECHNIQUE: Digital breast tomosynthesis is performed in both the craniocaudal and mediolateral oblique views along with computer-aided detection (CAD). Synthesized 2D images are generated from the tomosynthesis. FINDINGS: There are scattered areas of fibroglandular density (ACR BI-RADS breast composition Category b). There are no significant masses, abnormal calcifications, or other abnormalities. No architectural abnormality or developing density. The axilla are unremarkable. There are scattered bilateral isolated and grouped benign round, rim, predominantly dermal calcifications again seen. No significant changes. MM/MM tomosynthesis screening BI IMPRESSION: No mammographic evidence of malignancy. ASSESSMENT: BI-RADS 2: Benign RECOMMENDATION: Routine annual mammography screening. This patient's information was entered into a reminder system with a target due date for their next mammogram.
== END 2023-02-04 12:54 | disposition home or self-care (01) ==
LOC: HO.MAMMO 12:53
PROVIDERS: PCP Family Medicine; Visit Provider Family Medicine
DX: Z12.31 Encounter for screening mammogram for malignant neoplasm of breast (principal)
CPT/HCPCS: 77063; 77067

== ENCOUNTER 2023-04-10 09:55 | Outpatient (REF) | payer MEDICARE, SELFPAY ==
[2023-04-10 13:23] LABS: Cholesterol 161 mg/dL (<200); HDL Cholesterol 31 mg/dL (>40); LDL Cholesterol Calculated 70 mg/dL (<100); Triglycerides 303 mg/dL (<150)
== END 2023-04-10 09:56 | disposition home or self-care (01) ==
LOC: HO.LAB 09:55
PROVIDERS: Visit Provider Internal Medicine
DX: E78.2 Mixed hyperlipidemia (principal)
CPT/HCPCS: 36415; 80061

== ENCOUNTER 2023-07-28 08:57 | Outpatient (REF) | payer MEDICARE, SELFPAY ==
[2023-07-28 10:54] LABS: Anion Gap 15 (12-20); Blood Urea Nitrogen 44 mg/dL (9-16); Carbon Dioxide 24 mmol/L (22-29); Chloride 105 mmol/L (96-108); Glucose Fasting 146 mg/dL (60-99); Potassium 4.5 mmol/L (3.3-5.1); Sodium 139 mmol/L (135-145)
[2023-07-28 11:03] LABS: Estimated Average Glucose 131 mg/dL; Hemoglobin A1c % 6.2 % (<6.0)
== END 2023-07-28 08:58 | disposition home or self-care (01) ==
LOC: HO.10HDL 08:57
PROVIDERS: Visit Provider Family Medicine
DX: I10 Essential (primary) hypertension (principal); E11.9 Type 2 diabetes mellitus without complications
CPT/HCPCS: 36415; 80051; 82550; 82947; 83036; 84520

== ENCOUNTER 2023-08-28 12:35 | Outpatient (REF) | payer MEDICARE, SELFPAY ==
[2023-08-28 13:11] LABS: MANUAL DIFF FLAG NO
[2023-08-28 13:28] LABS: Basophils Absolute Auto 0.1 X10*3/uL (0.0-0.2); Basophils Percent Auto 0.7 % (0-2); Eosinophils Absolute Auto 0.2 X10*3/uL (0.0-0.4); Eosinophils Percent Auto 2.6 % (0-4); Hematocrit 35.2 % (37.0-47.0); Hemoglobin 11.1 g/dl (12.0-16.0); Imm Gran Abs Auto 0.02 X10*3/uL (0.00-0.03); Imm Gran Pct Auto 0.3 % (0.0-0.4); Lymphocytes Absolute Auto 1.3 X10*3/uL (1.2-4.9); Lymphocytes Percent Auto 18.8 % (20-40); Mean Corpuscular HGB Conc 31.5 g/dl (31.0-35.0); Mean Corpuscular Hemoglobin 31.5 pg (27.0-33.0); Mean Platelet Volume 9.6 fL (9.4-12.3); Monocytes Absolute Auto 0.5 X10*3/uL (0.1-1.2); Monocytes Percent Auto 6.7 % (2-11); Neutrophils Absolute Auto 4.9 x10*3/uL (2.0-8.3); Neutrophils Percent Auto 70.9 % (45-73); Platelet Count 231 X10*3/uL (160-400); Red Blood Count 3.52 X10*6/uL (4.20-5.50); Red Cell Distribution Width 14.1 % (11.0-16.0); White Blood Count 6.9 X10*3/uL (4.8-10.8)
[2023-08-28 13:51] LABS: Iron 95 mcg/dL (30-160); Percent Iron Saturation 31 % (15-50); Total Iron Binding Capacity 308 mcg/dL (228-428); Unsaturated Iron Binding 213 ug/dL
[2023-08-28 14:18] LABS: Erythrocyte Sedimentation Rate 25 MM/HR (0-20)
== END 2023-08-28 12:36 | disposition home or self-care (01) ==
LOC: HO.10HDL 12:35
PROVIDERS: Visit Provider Family Medicine
DX: K62.5 Hemorrhage of anus and rectum (principal); R53.83 Other fatigue
CPT/HCPCS: 36415; 83540; 85025; 85652

== ENCOUNTER 2023-10-23 09:37 | Outpatient (REF) | payer MEDICARE, SELFPAY ==
[2023-10-23 12:12] LABS: Estimated Average Glucose 131 mg/dL; Hemoglobin A1c % 6.2 % (<6.0)
[2023-10-23 12:28] LABS: Creatinine Urine 209.45 mg/dL; Microalbum/Creatinine Ratio Ur 28.1 ug/mg cr (<30)
[2023-10-23 12:51] LABS: Anion Gap 11 (12-20); Carbon Dioxide 27 mmol/L (22-29); Chloride 106 mmol/L (96-108); Cholesterol 239 mg/dL (<200); Estimated Glomerular Filt Rate 31; Glucose Fasting 139 mg/dL (60-99); HDL Cholesterol 31 mg/dL (>40); LDL Cholesterol Calculated 131 mg/dL (<100); Sodium 139 mmol/L (135-145); Triglycerides 388 mg/dL (<150)
== END 2023-10-23 09:38 | disposition home or self-care (01) ==
LOC: HO.10HDL 09:37
PROVIDERS: Visit Provider Family Medicine
DX: E11.9 Type 2 diabetes mellitus without complications (principal); E78.00 Pure hypercholesterolemia, unspecified; N18.30 Chronic kidney disease, stage 3 unspecified
CPT/HCPCS: 36415; 80051; 80061; 82043; 82565; 82570; 82947; 83036

== ENCOUNTER 2023-12-09 07:40 | Day surgery (SDC) | payer MEDICARE, SELFPAY ==
[2023-12-07 13:45] VITALS: BMI 33.1
--- NOTE | 2023-12-08 10:18 | P.CONAN_ITS ---
Documented by User: Mari Andrade NP 12/08/23 10:23 HPI - Anesthesia Eval Consult details Narrative: 77yo F for Colonoscopy Follows [facility] cardiology: CAD s/p CABG x 4 2019. Last office visit 09/2022. notes abnormal stress, but med management only d/t asymptomatic. Unable to reach pt by phone to ensure no current concerning CV symptoms. PMFSH Active Problems Active Problems: All Active Problems Status post coronary artery bypass graft (Acute) Nonrheumatic aortic (valve) stenosis (Acute) Mixed hyperlipidemia (Acute) Type 2 diabetes mellitus with unspecified complications (Acute) Essential hypertension (Acute) Atherosclerotic cardiovascular disease (Acute) Past Medical History Medical History (Updated 12/07/23 @ 13:37 by Yvette Caba RN) Gallstone Urinary incontinence Osteoarthritis HTN (hypertension) CAD (coronary artery disease) Gout On beta padmini at home Lumbar herniated disc Scoliosis Chronic pain Neuropathy Spinal stenosis Nonrheumatic aortic (valve) stenosis Mixed hyperlipidemia Type 2 diabetes mellitus with unspecified complications Essential hypertension Atherosclerotic cardiovascular disease Family History Family History Father No problems noted. Mother Diabetes Hypertension Family history of problems with anesthesia: No Surgical History Surgical History (Updated 12/07/23 @ 13:37 by Yvette Caba RN) History of quadruple bypass History of esophagogastroduodenoscopy (EGD) Hx of colonoscopy History of left knee replacement History of Problems with Anesthesia: No Social History Social History Are you a primary landcare facilitator to a significant other at home: No Do you presently have visiting nurse or other home services: No Alcohol intake: former Patient Tobacco Use Status: Never used Tobacco Meds Allergies Allergy/AdvReac Type Severity Reaction Status Date / Time hydromorphone [Dilaudid] Allergy Unknown Anaphylaxis Verified 10/08/22 14:06 meperidine [Demerol] Allergy Unknown Anaphylaxis Verified 10/08/22 14:06 empagliflozin AdvReac High Verified 10/08/22 14:06 [From Jardiance] Sugars, felt loggy [id number] Reductase AdvReac Muscle Pain Verified 10/08/22 14:06 Inhibitor Home Medications ?Medication ?Instructions ?Recorded ?Confirmed ?Last Taken ?Type allopurinol 300 mg tablet 300 mg PO DAILY 03/26/22 12/07/23 Unknown History amlodipine 10 mg tablet 10 mg PO BEDTIME 03/26/22 12/07/23 Unknown History aspirin 81 mg tablet,delayed 81 mg PO DAILY 03/26/22 12/07/23 Unknown History release celecoxib 200 mg capsule 200 mg PO BID 03/26/22 12/07/23 Unknown History metoprolol tartrate 50 mg tablet 75 mg PO BID 03/26/22 12/07/23 Unknown History pantoprazole 40 mg tablet,delayed 40 mg PO QPM 03/26/22 12/07/23 Unknown History release acetaminophen 325 mg tablet 650 mg PO Q6H PRN Pain 12/07/23 12/07/23 Unknown History biotin 1 mg capsule 1 mg PO DAILY 12/07/23 Unknown History cholecalciferol (vitamin D3) 25 25 mcg PO DAILY 12/07/23 12/07/23 Unknown History mcg (1,000 unit) tablet (Vitamin D3) folic acid 1 mg tablet 1 mg PO DAILY 12/07/23 Unknown History loratadine 10 mg tablet 10 mg PO DAILY 12/07/23 12/07/23 Unknown History magnesium oxide 400 mg PO DAILY 12/07/23 12/07/23 Unknown History metoprolol tartrate 25 mg tablet mg PO 12/09/23 12/09/23 History 06 Exam Height,Weight and Vital Signs: Height 5 ft 5 in Weight 90.265 kg Pertinent Lab Results Pertinent Lab Results: Laboratory Tests 07/28/23 08/28/23 10/23/23 09:20 12:45 09:42 WBC 6.9 Hgb 11.1 L Hct 35.2 L Plt Count 231 Sodium 139 Potassium 5.0 Chloride 106 Carbon Dioxide 27 BUN 44 H Creatinine 1.60 H Narrative Narrative: NM julieta perf SPECT rest & str 08/2022 Impression: 1. Myocardial perfusion imaging study shows ischemia/infarct pattern in the basal to mid lateral wall. 2. Gated LVEF is does not appear reliable; 51% during stress and 32% during rest. Correlate with echocardiogram. 3. Transient ischemic dilatation not present. EKG component of the test reported separately. ECHO 08/2022 Conclusions: - 1. Normal LV systolic function with regional wall motion abnormality suggestive underlying coronary artery disease with impaired relaxation filling pattern 2. Mildly dilated left atrium 3. Mildly dilated right ventricle with low normal RV systolic function 4. Mild aortic stenosis 5. Normal RV systolic pressure 6. No gross pericardial effusion Assessment and Plan Assessment Anesthesia Assessment: Chart Reviewed Final Anesthetic Review Family History of Problems with Anesthesia: No History of Problems with Anesthesia: No Documented by User: Baltazar Duarte MD 12/09/23 09:16 [facility] Past Medical History Medical History (Updated 12/07/23 @ 13:37 by Yvette Caba RN) Gallstone Urinary incontinence Osteoarthritis HTN (hypertension) CAD (coronary artery disease) Gout On beta padmini at home Lumbar herniated disc Scoliosis Chronic pain Neuropathy Spinal stenosis Nonrheumatic aortic (valve) stenosis Mixed hyperlipidemia Type 2 diabetes mellitus with unspecified complications Essential hypertension Atherosclerotic cardiovascular disease Family History Family History Father No problems noted. Mother Diabetes Hypertension Surgical History Surgical History (Updated 12/07/23 @ 13:37 by Yvette Caba RN) History of quadruple bypass History of esophagogastroduodenoscopy (EGD) Hx of colonoscopy History of left knee replacement Social History Social History Are you a primary landcare facilitator to a significant other at home: No Do you presently have visiting nurse or other home services: No Alcohol intake: former Patient Tobacco Use Status: Never used Tobacco Meds Allergies Allergy/AdvReac Type Severity Reaction Status Date / Time hydromorphone [Dilaudid] Allergy Unknown Anaphylaxis Verified 10/08/22 14:06 meperidine [Demerol] Allergy Unknown Anaphylaxis Verified 10/08/22 14:06 empagliflozin AdvReac High Verified 10/08/22 14:06 [From Jardiance] Sugars, felt loggy [id number] Reductase AdvReac Muscle Pain Verified 10/08/22 14:06 Inhibitor Home Medications ?Medication ?Instructions ?Recorded ?Confirmed ?Last Taken ?Type allopurinol 300 mg tablet 300 mg PO DAILY 03/26/22 12/07/23 Unknown History amlodipine 10 mg tablet 10 mg PO BEDTIME 03/26/22 12/07/23 Unknown History aspirin 81 mg tablet,delayed 81 mg PO DAILY 03/26/22 12/07/23 Unknown History release celecoxib 200 mg capsule 200 mg PO BID 03/26/22 12/07/23 Unknown History metoprolol tartrate 50 mg tablet 75 mg PO BID 03/26/22 12/07/23 Unknown History pantoprazole 40 mg tablet,delayed 40 mg PO QPM 03/26/22 12/07/23 Unknown History release acetaminophen 325 mg tablet 650 mg PO Q6H PRN Pain 12/07/23 12/07/23 Unknown History biotin 1 mg capsule 1 mg PO DAILY 12/07/23 Unknown History cholecalciferol (vitamin D3) 25 25 mcg PO DAILY 12/07/23 12/07/23 Unknown History mcg (1,000 unit) tablet (Vitamin D3) folic acid 1 mg tablet 1 mg PO DAILY 12/07/23 Unknown History loratadine 10 mg tablet 10 mg PO DAILY 12/07/23 12/07/23 Unknown History magnesium oxide 400 mg PO DAILY 12/07/23 12/07/23 Unknown History metoprolol tartrate 25 mg tablet mg PO 12/09/23 12/09/23 History 0600 Exam Airway Mallampati Class: II TM Dist: >3cm Neck ROM: Full Loose/Missing/Broken Teeth: No Heart: ok. see above. Lungs: ok Assessment and Plan Assessment Anesthesia Assessment: Anesthesia Plan Discussed Final Anesthetic Review NPO: Yes ASA Class: III Final Preanesthetic Review: No Changes in Pt Med Stat, Meds/Allgs Chart Reviewed, Consent Obtained/Reviewed and Anes Risks/Benef Reviewed Patient Risk: High Procedure Risk: Low Anesthetic Plan Anesthetic Plan: MAC: and Agree w/ Assess. and Plan Disposition: Standard PACU
[2023-12-09 07:55] VITALS: BMI 33.1
[2023-12-09 08:13] VITALS: BP 153/49; PULSE 55; RESP 14; TEMP 36.6; O2SAT 96
[2023-12-09] MEDS: Lactated Ringers 1,000 ML 100 ML IVCONT (08:15)
[2023-12-09 08:18] LABS: Glucose, Whole Blood 166 mg/dL (60-115)
[2023-12-09] MEDS: Sodium Phosphate,Mono-Dibasic 133 ML ENEMA PR (08:27)
--- NOTE | 2023-12-09 08:31 | PC.NURSE ---
24 hour preop assessment by Dr Manzo using paper documentation
[2023-12-09 09:37] VITALS: BP 160/74; PULSE 60; RESP 16; TEMP 36.7; O2SAT 96
--- NOTE | 2023-12-09 09:40 | P.BOP_ITS ---
Brief Operative Note Date of Service: 12/09/23 Pre-op diagnosis: Rectal bleeding Post-op diagnosis: other (Diverticulosis) Procedure: Colonoscopy to the cecum Surgeon: Valente Manzo MD Anesthesia: MAC Was an Director Internal Communications used for this Procedure?: No Estimated blood loss (mL): 0 Pathology: none sent Condition: stable Disposition: PACU
[2023-12-09 10:00] VITALS: BP 156/65; PULSE 62; RESP 18; TEMP 36.7; O2SAT 96
--- NOTE | 2023-12-09 10:22 | OP_ITS ---
DATE OF SERVICE: 12/09/2023 SURGEON: Valente Manzo MD INDICATIONS: The patient presents for evaluation of rectal bleeding. Full consent has been obtained from her for this, including risks of bleeding and perforation. PREOPERATIVE DIAGNOSIS: Rectal bleeding. POSTOPERATIVE DIAGNOSIS: PROCEDURE PERFORMED: Colonoscopy to the cecum. ESTIMATED BLOOD LOSS: COMPLICATIONS: ANESTHESIA: Monitored anesthesia care. ASSISTANTS: SPECIMENS: POSTOPERATIVE DIAGNOSES: Rectal bleeding, diverticulosis, and internal hemorrhoids. DESCRIPTION OF PROCEDURE: The patient was placed in the left lateral decubitus position. The digital rectal exam revealed no abnormalities. The Olympus video pediatric colonoscope was entered into the rectum and advanced to the cecum with the assistance of abdominal wall pressure. Once in the cecum, after irrigation and suctioning, I obtained good visualization. The ileocecal valve and the cecum appeared normal. The scope was slowly withdrawn assessing all mucosal surfaces carefully. For the most part, preparation was very good throughout the colon after her 2 day prep and an enema. There were some small amounts of stool that were irrigated and suctioned away. I did not visualize any sign of polyps, colitis, nor angiodysplasia. There was a moderate amount of sigmoid diverticulosis. In the rectum, scope was retroflexed visualizing some internal hemorrhoids, but no other pathology. The rectal mucosa appeared normal. Scope was straightened and withdrawn from the patient. She tolerated the procedure well and was returned to the recovery area in stable condition. IMPRESSION: 1. Diverticulosis. 2. Internal hemorrhoids. PLAN: Given today's negative exam and her age, I do not think she would need any further screening colonoscopies going forward. She was advised to resume her aspirin today. She will see me on a p.r.n. basis. MD BELGICA Posadas/DAJA / [id number] MTDGwendolyn
== END 2023-12-09 10:33 | disposition home or self-care (01) ==
PROVIDERS: PCP Family Medicine; Visit Provider Internal Medicine
PROC: 0DJD8ZZ Inspection of Lower Intestinal Tract, Via Natural or Artificial Opening Endoscopic (ICD-10-PCS; CPT 45378; principal; 2023-12-09 08:40)
DX: K62.5 Hemorrhage of anus and rectum (principal); K57.30 Diverticulosis of large intestine without perforation or abscess without bleeding; K64.8 Other hemorrhoids; I10 Essential (primary) hypertension; I25.10 Atherosclerotic heart disease of native coronary artery without angina pectoris; Z95.1 Presence of aortocoronary bypass graft; E11.9 Type 2 diabetes mellitus without complications; Z79.82 Long term (current) use of aspirin; Z79.899 Other long term (current) drug therapy
CPT/HCPCS: 45378; 82947; J2704

== ENCOUNTER 2024-01-21 08:42 | Outpatient (REF) | payer MEDICARE, SELFPAY ==
[2024-01-21 09:12] LABS: MANUAL DIFF FLAG NO
[2024-01-21 09:44] LABS: Basophils Percent Auto 0.5 % (0-2); Eosinophils Absolute Auto 0.2 X10*3/uL (0.0-0.4); Eosinophils Percent Auto 3.6 % (0-4); Hematocrit 23.3 % (37.0-47.0); Hemoglobin 7.5 g/dl (12.0-16.0); Imm Gran Abs Auto 0.02 X10*3/uL (0.00-0.03); Imm Gran Pct Auto 0.5 % (0.0-0.4); Lymphocytes Absolute Auto 1.3 X10*3/uL (1.2-4.9); Lymphocytes Percent Auto 30.4 % (20-40); Mean Corpuscular HGB Conc 32.2 g/dl (31.0-35.0); Mean Corpuscular Hemoglobin 31.5 pg (27.0-33.0); Mean Corpuscular Volume 97.9 fL (80.0-98.0); Monocytes Absolute Auto 0.5 X10*3/uL (0.1-1.2); Monocytes Percent Auto 11.3 % (2-11); Neutrophils Absolute Auto 2.4 x10*3/uL (2.0-8.3); Neutrophils Percent Auto 53.7 % (45-73); Platelet Count 264 X10*3/uL (160-400); Red Blood Count 2.38 X10*6/uL (4.20-5.50); Red Cell Distribution Width 14.6 % (11.0-16.0); White Blood Count 4.4 X10*3/uL (4.8-10.8)
[2024-01-21 10:17] LABS: Anion Gap 12 (12-20); Blood Urea Nitrogen 30 mg/dL (9-16); Carbon Dioxide 27 mmol/L (22-29); Chloride 108 mmol/L (96-108); Estimated Glomerular Filt Rate 46; Sodium 142 mmol/L (135-145)
== END 2024-01-21 08:43 | disposition home or self-care (01) ==
LOC: HO.LAB 08:42
PROVIDERS: PCP Family Medicine; Visit Provider Family Medicine
DX: N18.30 Chronic kidney disease, stage 3 unspecified (principal); D63.1 Anemia in chronic kidney disease
CPT/HCPCS: 36415; 80051; 82565; 84520; 85025

== ENCOUNTER 2024-01-22 09:16 | Outpatient (REF) | payer MEDICARE, SELFPAY ==
[2024-01-22 09:31] LABS: MANUAL DIFF FLAG NO
[2024-01-22 09:47] LABS: Basophils Percent Auto 0.9 % (0-2); Eosinophils Absolute Auto 0.2 X10*3/uL (0.0-0.4); Eosinophils Percent Auto 3.7 % (0-4); Hemoglobin 7.6 g/dl (12.0-16.0); Imm Gran Abs Auto 0.02 X10*3/uL (0.00-0.03); Imm Gran Pct Auto 0.5 % (0.0-0.4); Lymphocytes Absolute Auto 1.2 X10*3/uL (1.2-4.9); Lymphocytes Percent Auto 28.2 % (20-40); Mean Corpuscular HGB Conc 31.7 g/dl (31.0-35.0); Mean Corpuscular Hemoglobin 30.6 pg (27.0-33.0); Mean Corpuscular Volume 96.8 fL (80.0-98.0); Mean Platelet Volume 8.7 fL (9.4-12.3); Monocytes Absolute Auto 0.4 X10*3/uL (0.1-1.2); Monocytes Percent Auto 10.2 % (2-11); Neutrophils Absolute Auto 2.5 x10*3/uL (2.0-8.3); Neutrophils Percent Auto 56.5 % (45-73); Platelet Count 267 X10*3/uL (160-400); Red Blood Count 2.48 X10*6/uL (4.20-5.50); Red Cell Distribution Width 14.5 % (11.0-16.0); White Blood Count 4.3 X10*3/uL (4.8-10.8)
[2024-01-22 10:29] LABS: Iron 20 mcg/dL (30-160); Percent Iron Saturation 6 % (15-50); Total Iron Binding Capacity 315 mcg/dL (228-428); Unsaturated Iron Binding 295 ug/dL
== END 2024-01-22 09:17 | disposition home or self-care (01) ==
LOC: HO.LAB 09:16
PROVIDERS: PCP Family Medicine; Visit Provider Family Medicine
DX: D64.9 Anemia, unspecified (principal)
CPT/HCPCS: 36415; 83540; 85025

== ENCOUNTER 2024-02-04 09:49 | Outpatient (REF) | payer MEDICARE, SELFPAY ==
[2024-02-04 10:56] LABS: MANUAL DIFF FLAG NO
[2024-02-04 11:00] LABS: Basophils Absolute Auto 0.1 X10*3/uL (0.0-0.2); Basophils Percent Auto 1.2 % (0-2); Eosinophils Absolute Auto 0.2 X10*3/uL (0.0-0.4); Eosinophils Percent Auto 3.7 % (0-4); Hematocrit 36.6 % (37.0-47.0); Hemoglobin 11.8 g/dl (12.0-16.0); Imm Gran Abs Auto 0.01 X10*3/uL (0.00-0.03); Imm Gran Pct Auto 0.2 % (0.0-0.4); Lymphocytes Absolute Auto 1.3 X10*3/uL (1.2-4.9); Lymphocytes Percent Auto 30.4 % (20-40); Mean Corpuscular HGB Conc 32.2 g/dl (31.0-35.0); Mean Corpuscular Hemoglobin 30.5 pg (27.0-33.0); Mean Corpuscular Volume 94.6 fL (80.0-98.0); Mean Platelet Volume 9.2 fL (9.4-12.3); Monocytes Absolute Auto 0.5 X10*3/uL (0.1-1.2); Monocytes Percent Auto 11.8 % (2-11); Neutrophils Absolute Auto 2.3 x10*3/uL (2.0-8.3); Neutrophils Percent Auto 52.7 % (45-73); Platelet Count 212 X10*3/uL (160-400); Red Blood Count 3.87 X10*6/uL (4.20-5.50); Red Cell Distribution Width 15.9 % (11.0-16.0); White Blood Count 4.3 X10*3/uL (4.8-10.8)
== END 2024-02-04 09:50 | disposition home or self-care (01) ==
LOC: HO.10HDL 09:49
PROVIDERS: Visit Provider Internal Medicine
DX: K57.31 Diverticulosis of large intestine without perforation or abscess with bleeding (principal); D62 Acute posthemorrhagic anemia
CPT/HCPCS: 36415; 85025

== ENCOUNTER 2024-02-10 12:45 | Outpatient (REF) | payer MEDICARE, SELFPAY | END 2024-02-10 12:46 | disposition home or self-care (01) | LOC: HO.MAMMO 12:45 | PROVIDERS: PCP Family Medicine; Visit Provider Family Medicine | DX: Z12.31 Encounter for screening mammogram for malignant neoplasm of breast (principal) | CPT/HCPCS: 77063; 77067 ==

== ENCOUNTER → 2024-02-10 13:00 | Outpatient (BNV) | payer MEDICARE, SELFPAY | PROVIDERS: PCP Family Medicine; Visit Provider Radiology Diagnostic Radiology | DX: Z12.31 Encounter for screening mammogram for malignant neoplasm of breast (principal) | CPT/HCPCS: 77063; 77067 ==

== ENCOUNTER 2024-04-25 09:50 | Outpatient (REF) | payer MEDICARE, SELFPAY ==
[2024-04-25 10:45] LABS: MANUAL DIFF FLAG NO
[2024-04-25 10:48] LABS: Basophils Absolute Auto 0.1 X10*3/uL (0.0-0.2); Basophils Percent Auto 1.1 % (0-2); Eosinophils Absolute Auto 0.3 X10*3/uL (0.0-0.4); Eosinophils Percent Auto 5.2 % (0-4); Hematocrit 38.1 % (37.0-47.0); Hemoglobin 12.2 g/dl (12.0-16.0); Imm Gran Abs Auto 0.02 X10*3/uL (0.00-0.03); Imm Gran Pct Auto 0.4 % (0.0-0.4); Lymphocytes Absolute Auto 1.4 X10*3/uL (1.2-4.9); Lymphocytes Percent Auto 25.6 % (20-40); Mean Corpuscular Volume 96.7 fL (80.0-98.0); Mean Platelet Volume 9.3 fL (9.4-12.3); Monocytes Absolute Auto 0.5 X10*3/uL (0.1-1.2); Monocytes Percent Auto 8.7 % (2-11); Neutrophils Absolute Auto 3.2 x10*3/uL (2.0-8.3); Platelet Count 263 X10*3/uL (160-400); Red Blood Count 3.94 X10*6/uL (4.20-5.50); Red Cell Distribution Width 14.9 % (11.0-16.0); White Blood Count 5.4 X10*3/uL (4.8-10.8)
[2024-04-25 11:26] LABS: Anion Gap 13 (12-20); Blood Urea Nitrogen 30 mg/dL (9-16); Carbon Dioxide 25 mmol/L (22-29); Chloride 108 mmol/L (96-108); Estimated Glomerular Filt Rate 32; Glucose Fasting 173 mg/dL (60-99); Iron 123 mcg/dL (30-160); Percent Iron Saturation 45 % (15-50); Sodium 142 mmol/L (135-145); Total Iron Binding Capacity 276 mcg/dL (228-428); Unsaturated Iron Binding 153 ug/dL
[2024-04-25 11:49] LABS: Creatinine Urine 181.88 mg/dL; Microalbum/Creatinine Ratio Ur 91.2 ug/mg cr (<30)
[2024-04-25 11:51] LABS: Estimated Average Glucose 148 mg/dL; Hemoglobin A1c % 6.8 % (<6.0)
== END 2024-04-25 09:51 | disposition home or self-care (01) ==
LOC: HO.10HDL 09:50
PROVIDERS: Visit Provider Family Medicine
DX: I10 Essential (primary) hypertension (principal); E11.9 Type 2 diabetes mellitus without complications; D50.9 Iron deficiency anemia, unspecified
CPT/HCPCS: 36415; 80051; 82043; 82565; 82570; 82947; 83036; 83540; 84520; 85025

== ENCOUNTER 2024-11-22 11:25 | Outpatient (REF) | payer MEDICARE, SELFPAY ==
[2024-11-22 13:16] LABS: MANUAL DIFF FLAG NO
[2024-11-22 13:25] LABS: Basophils Absolute Auto 0.1 X10*3/uL (0.0-0.2); Basophils Percent Auto 0.9 % (0-2); Eosinophils Absolute Auto 0.2 X10*3/uL (0.0-0.4); Eosinophils Percent Auto 3.5 % (0-4); Hematocrit 37.7 % (37.0-47.0); Hemoglobin 12.8 g/dl (12.0-16.0); Imm Gran Abs Auto 0.02 X10*3/uL (0.00-0.03); Imm Gran Pct Auto 0.4 % (0.0-0.4); Lymphocytes Absolute Auto 1.2 X10*3/uL (1.2-4.9); Lymphocytes Percent Auto 22.4 % (20-40); Mean Corpuscular Hemoglobin 32.3 pg (27.0-33.0); Mean Corpuscular Volume 95.2 fL (80.0-98.0); Mean Platelet Volume 9.2 fL (9.4-12.3); Monocytes Absolute Auto 0.5 X10*3/uL (0.1-1.2); Neutrophils Absolute Auto 3.4 x10*3/uL (2.0-8.3); Neutrophils Percent Auto 62.8 % (45-73); Platelet Count 231 X10*3/uL (160-400); Red Blood Count 3.96 X10*6/uL (4.20-5.50); Red Cell Distribution Width 14.4 % (11.0-16.0); White Blood Count 5.4 X10*3/uL (4.8-10.8)
[2024-11-22 13:54] LABS: Estimated Average Glucose 143 mg/dL; Hemoglobin A1C 168.7075 umol/L; Hemoglobin A1c % 6.6 % (<6.0); Total Hemoglobin (HGBA1C) 3432.7096 umol/L
--- OUTSIDE RECORDS SUMMARY | 2024-11-22 14:02 | XMS_ITS ---
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 Name Role Phone Ronak YOUNG, Nhan Primary Care Provider Unavailab Dee Dee Parry Unavailable [phone] Arcenio Thayer Unavailable [phone] Allergies Allergen (clinical drug ingredient) Drug/Non Drug Allergy documented on EMR Reaction Allergy Type Onset Date Status meperidine Demerol Unknown Drug Allergy Active Adhesive Unknown Allergy Active REASON FOR VISIT Painful thick toenails which are aggrevated by shoes and causes difficulty standing/walking Medications Medication SIG (Take, Route, Frequency, Duration) Notes Start Date End Date Status Extra Depth Diabetic Shoes with 3 Pair Custom heat-molded multi-density innersoles for 1 year Dx: 09/17/2020 Not-Taking Zetia 10 MG 1 tablet Orally Once a day Not-Taking Gabapentin 300mg three times a day orally daily Not-Taking Glucosamine HCl 1500 MG 1 tablet Orally Once a day for 30 day(s) Not-Taking Clopidogrel Bisulfate 75 MG 1 tablet Orally Once a day for 30 day(s) Not-Taking Loratadine 10 MG 1 tablet Orally Once a day for 30 day(s) Active Pantoprazole Sodium 40 MG 1 tablet Orally Once a day for 30 day(s) Active Metoprolol Tartrate 75 MG 1 tablet with food Orally Twice a day for 30 day(s) 75 and 50 mg both Active Vitamin D3 Active Tylenol Active Extra Depth Diabetic Shoes with 3 Pair Custom heat-molded multi-density innersoles for 1 year Dx: Active CeleBREX 200 MG 1 capsule with food Orally twice a day Active Biotin 5000 MCG 1 tablet Orally Once a day for 30 day(s) Active ASA 81 mg Active Allopurinol 300 MG 1 tablet Orally Once a day for 30 day(s) Active amLODIPine Besylate 5 MG 1 tablet Orally Once a day for 30 day(s) Active Praluent 75 MG/ML as directed Subcutaneous Active Iron Active Social History Tobacco Use: Social History Observation Description Date Details (start date - stop date) Never Smoker NA - NA Tobacco Use/Smoking Question Answer Notes Are you a: nonsmoker Additional Findings: Tobacco Non-User Current no n-smoker Alcohol Screen Question Answer Notes Did you have a drink containing alcohol in the p ast year? No Points 0 Interpretation Negative Tobacco use other than smoking: Question Answer Notes Are you an other tobacco user? No Vital Signs Height 5 ft 5in in 05/18/2024 Weight 200 lbs 05/18/2024 BMI 33.28 kg/m2 05/18/2024 Blood pressure systolic 150 mm Hg 05/18/20 24 Blood pressure diastolic 70 mm Hg 024 Encounters Encounter Location Date Provider Diagnosis [facility] [address] [address] 05/18/2024 Arcenio Thayer Pain in left foot M79.672 ; Pain in right foot M79.671 ; Type 2 diabetes mellitus with diabetic polyneuropathy E11.42 ; Primary osteoarthritis, left ankle and foot M19.072 ; Metatarsalgia, left foot M77.42 ; Sesamoid pain M89.9 ; Tinea unguium B35.1 ; Pain in right toe(s) M79.674 ; Pain in left toe(s) M79.675 ; Ingrowing nail L60.0 and 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 M76.821 Assessments Encounter Date Diagnosis (ICD Code) Assessment Notes Treatment Notes Treatment Clinical Notes Section Notes 05/18/2024 Pain in left foot (ICD-10 - M79.672) 05/18/2024 Pain in right foot (ICD-10 - M79.671) 05/18/2024 Type 2 diabetes mellitus with diabetic polyneuropathy (ICD-10 - E11.42) 05/18/2024 Primary osteoarthritis, left ankle and foot (ICD-10 - M19.072) 05/18/2024 Metatarsalgia, left foot (ICD-10 - M77.42) 05/18/2024 Sesamoid pain (ICD-10 - M89.9) 05/18/2024 Tinea unguium (ICD-10 - B35.1) 05/18/2024 Pain in right toe(s) (ICD-10 - M79.674) 05/18/2024 Pain in left toe(s) (ICD-10 - M79.675) 05/18/2024 Ingrowing nail (ICD-10 - L60.0) 05/18/2024 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 (ICD-10 - M76.821) Plan Of Treatment Medication Medication Name Sig Start Date Stop Date Notes Extra Depth Diabetic Shoes w ith 3 Pair Custom heat-molded multi-density innersoles for 1 year Dx: Next Appt Details Follow Up: 3 Months, 2 Month s, Reason: Provider Name:Dee Dee Jonesmony dawkins, 03/02/2025 02:30:00 PM, [address] [place] [address], [id number], Procedure Notes * Category Sub-Category Detail Notes Debride Nail 6-10 Nail debridement Nail debridem ent performed extensively to reduce/remove overall nail length and girth, subungual debris, and necrotic tissue, by manual and electrical means with use of a nail nipper and/or dremel, to more viable healthy nail plate or bed tissue 6-10. Silver nitrate used for any petechial bleeding as necessary. Patient chooses, no pharmaceutical tx (51293) Keratoma Treatment Parring or Cutting o f Benign Hyperkeratotic Lesion(s) 98463 (2-4 Lesions) - The Benign hyperkeratotic lesions, as described above were pared, and/or cut utilizing a sterile #15 blade, tissue nippers, and/or dremel Progress Notes * Cristy SIMMONS MDOB:[birth year] (78 yo F)Acc No.[id number]:05/18/2024 Progress Note Patient:?Cristy SIMMONS Provider:?Arcenio Thayer DPM :1945???Age:78 Y???Sex:Female D ate:05/18/2024 [facility] [place] Pcp:Nhan Simons MD Subjective: * Chief Complaints: * ???Painful thick toenails wh ich are aggrevated by shoes and causes difficulty standing/walking * HPI: ???Foot Pain:?Location?Bottom, Inside, Midfoot, Rearfoot, Right .?Onset/Cause:?overuse.?Course:?improved.?Aggrevated:?any pressure, standing, walking.?Treatments:?rest.?Quality/Severity?mild, moderate.?At Risk footcare:?Pt States Last PCP Visit:?Date?04/27/2024 ???Ankle Pain:?Nature:?aching, sharp, shooting?and feeling of weakness.?Location:?B/L ankles.?Duration: ?several months .? * ROS:?General/Constitutional:?Nausea?denies.?Vomiting?denies.?Hunger Thirst?denies.?Loss appetite?denies.?Chills?denies.?Fatigue?denies.?Fever?denies.?Night Sweats?denies.?Unexplained weight loss?denies.?Unexplained weight gain?denies.?HEENTM:?Dentures?denies.?Dizziness?denies.?Glasses/contacts?admits.?Retinopathy?den ies.?Blurred/double vision?denies.?TMJ?denies.?Discharge/drainage?denies.?Implants?denies.?Sore throat?denies.?Dental implants?denies.?Hard of hearing ?denies.?Difficulty chewing/swallowing/speaking?denies.?Nose bleeds?denies.?Sore mouth?denies.?Respiratory:?On O xygen?denies.?Pneumonia/pleurisy?denies.?Bronchitis?denies.?Emphysema?denies.?Co ughing?denies.?Cough blood?denies.?Shortness of breath?denies.?Wheezing?denies.?Cardiovascular:?Pacemaker?denies.?MVP?denies.?WPW?denies.?CHF?denies.?Heart attack?denies.?Septal defect?denies.?Rapid beat?denies.?Chest pain ?denies.?Atrial Fib.?denies.?Murmur/Palpitations?denies.?Gastrointestinal:?Hemorrhoids?denies.?Stomach/Abdominal pain?denies.?Dark blood stool?denies.?Irritable bowel ?denies.?Constipation?denies.?Diarrhea?denies.?Hematology:?Swelling?denies.?Clots?denies.?Varicose Veins?denies.?Bruising?denies.?Bleeding problem?denies.?Genitourinary:?Blood urine?denies.?Frequent/Painfu/urination/bladder control?denies.?Kidney stones?denies.?Infection (UTI)?denies.?Nephropathy?admits.?sex trans dis (STD)?denies.?Prostate?denies.?Musculoskeletal:?Hammertoes?denies.?Bunions?denies.?Back Pain?denies.?Muscle Cramps/ Resting?denies.?Muscle cramps / walking?denies.?Generalized aches and pains?admits.?Weakness?denies.?Integ.:?[place]?denies.?Scars?denies.?Corns/calluses?admits.?Ingrown nails?denies.?Painful nails?denies.?Open Sores?denies.?Rashes?denies.?Neurologic:?Difficulty sleeping?denies.?Brain disorder?denies.?Numbness?admits.?Balance t rouble?denies.?Confusion?denies.?Fainting/blackouts?denies.?Tingling?admits.?Obey mors?denies.? * Medical History:? * Surgical History:?CABG surge ry X3 2019LTKR 2013colonoscopy * Hospitalization/Major Diagno stic Procedure:?[facility] - Open heart surgery 12/09/2019[facility]- rectal hemorrhaging 01/2024 * Family History:?Mother: dece ased, diagnosed with Diabetic - NIDDM, Unspecified essential hypertension.?Father: .? * Social History:?Tobacco Use:?Tobacco Use/Smoking?Are you a:?nonsmoker ?Additional Findings: Tobacco Non-User?Current non-smoker ?Tobacco use other than smoking?Are you an other tobacco user??No ???Drugs/Alcohol:?Drugs?Have you used drugs other than those for medical reasons in the past 12 months??No ?Alcohol Screen?Did you have a drink containing alcohol in the past year??No ?Points?0 ?Interpretation?Negative ???Miscellaneous:?Caffeine: yes, 1-2 cups per week. ?Children: no. ?Exercise: yes, limited excersize. ?Marital status: . 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 * Medications:?TakingExtra Dep th Diabetic Shoes with 3 Pair Custom heat-molded multi-density innersoles for 1 year Dx: Iron Praluent 75 MG/ML Solution Auto- injector as directed Subcutaneous amLODIPine Besylate 5 MG Tablet 1 tablet Orally Once a day Allopurinol 300 MG Tablet 1 tablet Orally Once a day ASA , Notes to Pharmacist: 81 mgBiotin 5000 MCG Tablet 1 tablet Orally Once a day CeleBREX 200 MG Capsule 1 capsule with food Orally twice a day Loratadine 10 MG Tablet 1 tablet Orally Once a day Metoprolol Tartrate 75 MG Tablet 1 tablet with food Orally Twice a day , Notes to Pharmacist: 75 and 50 mg bothPantoprazole Sodium 40 MG Tablet Delayed Release 1 tablet Orally Once a day Tylenol Vitamin D3 Taking Extra Depth Diabetic Shoes with 3 Pair Custom heat-molded multi-density innersoles for 1 year Dx: Taking Iron Taking Praluent 75 MG/ML Solution Auto-injector as directed Subcutaneous Taking amLODIPine Besylate 5 MG Tablet 1 tablet Orally Once a day Taking Allopurinol 300 MG Tablet 1 tablet Orally Once a day Taking ASA , Notes to Pharmacist: 81 mgTaking Biotin 5000 MCG Tablet 1 tablet Orally Once a day Taking CeleBREX 200 MG Capsule 1 capsule with food Orally twice a day Taking Loratadine 10 MG Tablet 1 tablet Orally Once a day Taking Metoprolol Tartrate 75 MG Tablet 1 tablet with food Orally Twice a day , Notes to Pharmacist: 75 and 50 mg bothTaking Pantoprazole Sodium 40 MG Tablet Delayed Release 1 tablet Orally Once a day Taking Tylenol Taking Vitamin D3 Not-Taking/PRNGabapentin 300mg tablets three times a day orally daily Zetia 10 MG Tablet 1 tablet Orally Once a day Clopidogrel Bisulfate 75 MG Tablet 1 tablet Orally Once a day Glucosamine HCl 1500 MG Tablet 1 tablet Orally Once a day Extra Depth Diabetic Shoes with 3 Pair Custom heat-molded multi-density innersoles for 1 year Dx: Medication List reviewed and reconciled with the patientNot-Taking/PRN Gabapentin 300mg tablets three times a day orally daily Not-Taking/PRN Zetia 10 MG Tablet 1 tablet Orally Once a day Not-Taking/PRN Clopidogrel Bisulfate 75 MG Tablet 1 tablet Orally Once a day Not-Taking/PRN Glucosamine HCl 1500 MG Tablet 1 tablet Orally Once a day Not-Taking/PRN Extra Depth Diabetic Shoes with 3 Pair Custom heat-molded multi-density innersoles for 1 year Dx: Medication List reviewed and reconciled with the patient * Allergies:?AdhesiveDemerolye s[Allergies Verified] Objective: * Vitals:?Ht: 5 ft 5in, Wt: 20 0, BMI: 33.28, Shoe size: 9.5, BP: 150/70 mm Hg, BS: 76, Ht-cm: 165.1 cm, Wt-k.72 kg. * ???Past Orders: ???Lab:HEMOGLOBIN A1C (GLYCO HEMOGLOBIN) (Order Date - 04/27/2024) (Collection Date & Time - 04/27/2024 12:33 PM) ? Value Reference Range ?TOTAL HEMOGLOBIN (HGBA1C) 6.8 * Examination: ???General Examination: ?GENERAL APPEARANCE:?pleasant, alert, well nourished, well developed, well hydrated, with good attention to hygene/body habitus, and in no acute distress.?ORIENTED:?person,place, and time.?FOOT EXAM:?Lower Extremity Neurological Exam performed:?Yes ?Visual exam of foot performed:?Yes ?Date?05/18/2024 ?Footwear Evaluation?Footwear Evaluation performed:?Yes?Neurological: ?SENSORY:? Neurological exam demonstrates, reduced vibration sensation, 5.07 monofilament test performed at plantar aspects of 5 varied sites per foot shows sensation, reduced , B/L, Neurological exam demonstrates pop medial right ankle.?TINEL'S COMPRESSION:?Negative tarsal tunnel, mariela pedis, and medial calcaneal nerves B/L.?BABINSKI REFLEX:?absent.?Neuroma Pain: ?PALPATION:?No interspace pain noted on palpation.?Vascular: ?DP PULSES (B):? 1/4, B/L.?PT PULSES (B):? 1/4, B/L.?CAPILLARY FILL TIME:?3 secs. per digit, B/L.?TROPHIC CONDITION-TEXTURE/ELASTICITY/TURGOR/HAIR GROWTH (B):?normal, B/L.?TEMPERTURE GRADIENT (C):?warm to cool, proximal to distal, B/L.?PIGMENTATION:?normal, B/L.?EDEMA (C):?no edema.?TELANGECTASIA:?absent.?VARICOSITIES:?absent.?Dermatologic: ?SKIN FINDINGS:?Skin exam reveals Keratotic lesion(s) located at, SUB MTH (s), 1, Left , Plantar, Heel(s), B/L , Skin exam reveals Keratotic lesion(s) located at, Medial plantar, IPJ, T5.?Orthopedic: ?MUSCLE STRENGTH:?5/5 all groups in a symmetrical fashion , B/L.?GAIT ABNORMALITY:?pronated, abducted, B/L.?FOOT MORPHOLOGY:? Rigid, Pes Planus structure, B/L.?FOOTWEAR:?fair condition.?Nails: ?NAILS are:?Elongated, overgrown, dystrophic, lytic, greater than 3mm thick, discolored and friable with crumbly malodorous subungual debris, with dull to no pain on palpation due to neuropathy, 1-5 B/L.?Ophthalmology Referral: ?DIABETES EYE EXAM?Procedure Performed:?Yes ?Date of Exam Performed?02/23/2024 ?Diabetic Retinopathy Screening:?Yes ?Findings of Diabetic Eye Exam:?no retinopathy?Ingrown Nail: ?INSPECTION:? Reveals nail incurvation, dull pain on palpation due to neuropathy, groove hypertrophy, Bilateral nail borders, TA, T5.? Assessment: * Assessment: 1.?Pain in left foot - M79.6 72 (Primary)???2.?Pain in right foot - M79.671???3.?Type 2 diabetes mellitus with diabetic polyneuropathy - E11.42???4.?Primary osteoarthritis, left ankle and foot - M19.072???5.?Metatarsalgia, left foot - M77.42???6.?Sesamoid pain - M89.9???7.?Tinea unguium - B35.1???8.?Pain in right toe(s) - M79.674???9.?Pain in left toe(s) - M79.675???10.?Ingrowing nail - L60.0???11.?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 - M76.821??? Plan: * Treatment: * Procedures:?Debride Nail 6-10:?Nail debridement?Nail debridement performed extensively to reduce/remove overall nail length and girth, subungual debris, and necrotic tissue, by manual and electrical means with use of a nail nipper and/or dremel, to more viable healthy nail plate or bed tissue 6-10. Silver nitrate used for any petechial bleeding as necessary. Patient chooses, no pharmaceutical tx ([id number]).?Keratoma Treatment:?Parring or Cutting of Benign Hyperkeratotic Lesion(s)?72267 (2-4 Lesions) - The Benign hyperkeratotic lesions, as described above were pared, and/or cut utilizing a sterile #15 blade, tissue nippers, and/or dremel.? * Procedure Codes:?15221 TRIM SKIN LESIONS, 2 TO 4, Modifiers: XS 88431 DEBRIDE NAIL, 6 OR MORE, Modifiers: XS * Preventive Medicine:? ??Screening/Special Tests:?Fall Risk?Screening:?No falls in the past year ?FALLS: Screening for Future Fall Risk?Have you had two or more falls in the past year??No ?Have you had any falls with injury in the past year??No * Follow Up:?3 Months, 2 Month s * Images: * Sign off status: Completed true * Provider:Rosy Thayer DPM Date:? 024 Generated for Gabriel hernandez/Elsie/Kamron on:?11/22/2024 02:02 PM EDT History and Physical Notes * HPI (History of Present Illness) Category Sub-Category Detail Notes Category Not es Ankle Pain Duration: several months Nature: aching, sharp, shooting and feeling of weakness Location: B/L ankles At Risk footcare Pt States Last PCP Visit: Date: 4 Foot Pain Aggrevated: any pressure, standing, walk ing Onset/Cause: overuse Course: improved Treatments: rest Quality/Severity mild, moderate Location Bottom, Inside, Midf oot, Rearfoot, Right Examination Category Sub-Category Detail Notes Category Not es Ingrown Nail INSPECTION: Reveals nail inc urvation, dull pain on palpation due to neuropathy, groove hypertrophy, Bilateral nail borders, TA, T5 Neuroma Pain PALPATION: No interspace pain noted on palpation Neurological SENSORY: Neurological exa m demonstrates, reduced vibration sensation, 5.07 monofilament test performed at plantar aspects of 5 varied sites per foot shows sensation, reduced , B/L, Neurological exam demonstrates pop medial right ankle BABINSKI REFLEX: absent TINEL'S COMPRESSION: Negative tarsal adore kena, mariela pedis, and medial calcaneal nerves B/L Dermatologic SKIN FINDINGS: Skin exam reveal s Keratotic lesion(s) located at, SUB MTH (s), 1, Left , Plantar, Heel(s), B/L , Skin exam reveals Keratotic lesion(s) located at, Medial plantar, IPJ, T5 Orthopedic GAIT ABNORMALITY: pronated, abducted, B/L FOOT MORPHOLOGY: Rigid, Pes Planus st ructure, B/L FOOTWEAR EVALUATION: fair condition MUSCLE STRENGTH: 5/5 all groups in a symmetrical fashion , B/L General Examination GENERAL APPEARANCE: pleasant , alert, well nourished, well developed, well hydrated, with good attention to hygene/body habitus, and in no acute distress FOOT EXAM: Lower Extremity Neurological Exa m performed:: Yes Visual exam of foot performed:: Yes Date: 05/18/2024 ORIENTED: person,place, and ti me Footwear Evaluation Footwear Evaluation performe d:: Yes Ophthalmology Referral DIABETES EYE EXAM Procedure Perform ed:: Yes ?Date of Exam Performed: 02/23/2024 Diabetic Retinopathy Screening:: Yes Findings of Diabetic Eye Exam:: no retin opathy Vascular DP PULSES (B): 1/4, B/L PT PULSES (B): 1/4, B/L CAPILLARY FILL TIME: 3 secs. per digit, B/L TEMPERTURE GRADIENT (C): warm to cool, p roximal to distal, B/L TROPHIC CONDITION-TEXTURE/ELASTICITY/TURGOR/HAIR GROWTH (B): normal, B/L EDEMA (C): no edema TELANGECTASIA: absent VARICOSITIES: absent PIGMENTATION: normal, B/L Nails NAILS are: Elongated, overg rown, dystrophic, lytic, greater than 3mm thick, discolored and friable with crumbly malodorous subungual debris, with dull to no pain on palpation due to neuropathy, 1-5 B/L
--- OUTSIDE RECORDS SUMMARY | 2024-11-22 14:02 | XMS_ITS ---
Author Organization [facility] Address [address] [place] [address] Care Team Providers Care Wild Animal Caretaker Name Role Phone Ronak YOUNG, Nhan Primary Care Provider UnavailDee Dee Bonilla Unavailable [phone] Cesar Castillo Unavailable [phone] Allergies Allergen (clinical drug ingredient) Drug/Non Drug Allergy documented on EMR Reaction Allergy Type Onset Date Status meperidine Demerol Unknown Drug Allergy Active Adhesive Unknown Allergy Active REASON FOR VISIT At Risk Footcare, Toe Irritation Medications Medication SIG (Take, Route, Frequency, Duration) Notes Start Date End Date Status Vitamin D3 Active Glucosamine HCl 1500 MG 1 tablet Orally Once a day for 30 day(s) Not-Taking Clopidogrel Bisulfate 75 MG 1 tablet Orally Once a day for 30 day(s) Not-Taking Zetia 10 MG 1 tablet Orally Once a day Not-Taking Gabapentin 300mg three times a day orally daily Not-Taking Tylenol Active Pantoprazole Sodium 40 MG 1 tablet Orally Once a day for 30 day(s) Active Metoprolol Tartrate 75 MG 1 tablet with food Orally Twice a day for 30 day(s) 75 and 50 mg both Active Loratadine 10 MG 1 tablet Orally Once a day for 30 day(s) Active CeleBREX 200 MG 1 capsule with [...] MG/ML as directed Subcutaneous Active Iron Active Extra Depth Orthopedic Shoes (1 Pair) with Customized Heat Molded Multidensity Innersoles (3 Pair) as directed Dx: NIDDM/Polyneuropathy (E11.42), Hammertoe Foot Deformity (M20.41,M20.42), Preulcerative Skin Lesion(s) (L85.1 11/18/2024 Active Social History Tobacco Use: Social History Observation Description Date Details (start date - stop date) Never Smoker NA - NA Tobacco use other than smoking: Question Answer Notes Are you an other tobacco user? No Tobacco Control (Standard) Question Answer Notes Tobacco use: Nonsmoker Additional Findings: Tobacco non-user Current no nsmoker AUDIT-C (Standard) Question Answer Notes Did you have a drink containing alcohol in the p ast year? No Points 0 Interpretation Negative Vital Signs Height 5 ft 5in in 11/18/2024 Weight 200 lbs 11/18/2024 BMI 33.28 kg/m2 11/18/2024 Blood pressure systolic 150 mm Hg 11/19/19 25 Blood pressure diastolic 80 mm Hg 025 Procedures Procedure Date Ordered Date Performed Result Body Sit e 24473-CNOETXW NAIL, 6 OR MORE 11/18/2024 N/A 80012-PADL SKIN LESIONS, OVER 4 11/18/2024 N/A Encounters Encounter Location Date Provider Diagnosis [facility] [place] [address] [place] [address] 11/18/2024 Cesar Castillo Type 2 diabetes mellitus with diabetic polyneuropathy E11.42 ; Tinea unguium B35.1 ; Other hammer toe(s) (acquired), right foot M20.41 and Other hammer toe(s) (acquired), left foot M20.42 Assessments Encounter Date Diagnosis (ICD Code) Assessment Notes Treatment Notes Treatment Clinical Notes Section Notes 11/18/2024 Type 2 diabetes mellitus with diabetic polyneuropathy (ICD-10 - E11.42) 11/18/2024 Tinea unguium (ICD-10 - B35.1) 11/18/2024 Other hammer toe(s) (acquired), right foot (ICD-10 - M20.41) Patient Educated with: DIABETIC FOOT CARE INSTRUCTIONS. pdf (DIABETIC FOOT CARE INSTRUCTIONS. pdf) 11/18/2024 Other hammer toe(s) (acquired), left foot (ICD-10 - M20.42) Plan Of Treatment Medication Medication Name Sig Start Date Stop Date Notes Extra Depth Orthopedic Shoes (1 Pair) with Customized Heat Molded Multidensity Innersoles (3 Pair) as directed Dx: NIDDM/Polyneuropathy (E11.42), Hammertoe Foot Deformity (M20.41,M20.42), Preulcerative Skin Lesion(s) (L85.1 11/18/2024 Treatment Notes Assessment Notes Other hammer toe(s) (acquired), right fo ot Patient Educated with: DIABETIC FOOT CARE INSTRUCTIONS.pdf (DIABETIC FOOT CARE INSTRUCTIONS.pdf) Pending Test Test Name Order Date 34008-KAHLIPF NAIL, 6 OR MORE 11/18/2024 53569-EOPU SKIN LESIONS, OVER 4 11/19/19 25 Next Appt Details Follow Up: prn, Reason: Provider Name:Dee Dee Jonesmony dawkins, 03/02/2025 02:30:00 PM, [address] [place] [address], [phone], Procedure Notes * Category Sub-Category Detail Notes Debride Nail 6-10 Nail debridement Due to the cl inical pathology outlined in the exam findings, performance of this nail treatment is medically necessary as its management by an unskilled/untrained nonprofessional would put this patients foot and overall health at risk. Therefore, debridement to affected nail(s), as described in exam ( TA, T1, T2, T3, T4, T5, T6, T7, T8, T9 ), was performed exclusively by the physician of record to reduce/remove overall nail length, girth, thickness, subungual debris, and necrotic tissue, by manual and/or electrical means through the use of a nail nipper and/or dremel-type regrinder operator, to a more viable healthy nail plate or bed tissue 6-10 nails in total. Silver nitrate was used for any petechial bleeding as necessary. Definitive antifungal treatment options, both pharmaceutical and surgical, have been reviewed and discussed with the patient. The patient solely prefers the use of intermittent/as needed professional debridement services for their nail condition and understands the need for additional periodic treatments to maintain effectiveness in symptomatic relief - 56887 Keratoma Treatment Parring or Cutting o f Benign Hyperkeratotic Lesion(s) (-57) More than 4 Lesions - Due to the at risk nature of the patients medical condition as documented in the exam findings, performance of this keratoderma treatment is medically necessary as its management by an unskilled/untrained nonprofessional would put this patients foot and overall health at risk. Therefore, the benign hyperkeratotic lesions, (6) in total, locations as stated and described in the exam ( Medial, IPJ, TA, Medial, IPJ, T5, SUB MTH (s), 1, B/L, Plantar Heel(s), B/L ), were pared, and/or cut utilizing a sterile 15 blade, tissue nippers, and/or power dremel instrumentation by the physician of record - 43637 Progress Notes * Cristy SIMMONS MDOB:[birth year] (78 yo F)Acc No.[id number]:11/18/2024 Progress Note Patient:?Cristy SIMMONS Provider:?Cesar aCstillo DPM :1945???Age:78 Y???Sex:Female D ate:11/18/2024 Address:[address] [place], [place] [id number] Pcp:Nhan Simons MD Subjective: * Chief Complaints: * ???At Risk FootcareToe Irrit ation * HPI: ???At Risk footcare:?Pt States Last PCP Visit:?Date?10/05/2024 ???Toe pain:?Location:?B/L feet.?Duration:?several years.?Course:?worse.?Aggravated by:?shoes, any pressure.?Treatments:?change in shoes.? * ROS:?General/Constitutional:?Nausea?denies.?Vomiting?denies.?Hunger Thirst?denies.?Loss appetite?denies.?Chills?denies.?Fatigue?denies.?Fever?denies.?Night Sweats?denies.?Unexplained weight loss?denies.?Unexplained [...] History:? * Surgical History:?CABG surge ry X3 2020LTKR 2013colonoscopy * Hospitalization/Major Diagno stic Procedure:?[facility] - Open heart surgery 12/09/2019[facility]- rectal hemorrhaging 01/2024 * Family History:?Mother: dece ased, diagnosed with Diabetic - NIDDM, Unspecified essential hypertension.?Father: .? * Social History:?Tobacco Use:?Tobacco use other than smoking?Are you an other tobacco user??No ?Tobacco Control (Standard)?Tobacco use:?Nonsmoker ?Additional Findings: Tobacco non-user?Current nonsmoker ???Drugs/Alcohol:?Drugs?Have you used drugs other than those for medical reasons in the past 12 months??No ???Drug/Alcohol:?AUDIT-C (Standard)?Did you have a drink containing alcohol in the past year??No ?Points?0 ?Interpretation?Negative * Medications:?TakingIron Pral uent 75 MG/ML Solution Auto-injector as directed Subcutaneous amLODIPine Besylate 5 MG [...] Once a day Tylenol Vitamin D3 Taking Iron Taking Praluent 75 MG/ML Solution Auto- injector as directed Subcutaneous Taking amLODIPine Besylate 5 [...] Tablet 1 tablet Orally Once a day Medication List reviewed and reconciled with the patientNot- Taking/PRN Gabapentin 300mg tablets three times a day orally daily Not-Taking/PRN Zetia 10 MG Tablet 1 tablet Orally Once a day Not-Taking/PRN Clopidogrel Bisulfate 75 MG Tablet 1 tablet Orally Once a day Not-Taking/PRN Glucosamine HCl 1500 MG Tablet 1 tablet Orally Once a day Medication List reviewed and reconciled with the patient * Allergies:?AdhesiveDemerolye s[Allergies Verified] Objective: * Vitals:?Ht: 5 ft 5in, Wt:200 , BMI: 33.28, Shoe size:9.5, BP:150/80mm Hg, BS:158, Ht-cm: 165.1 cm, Wt-k.72 kg. * ???Past Orders: ???Lab:HEMOGLOBIN A1C (GLYCO HEMOGLOBIN) (Order Date - 08/26/2024) (Collection Date & Time - 08/26/2024) ? Value Reference Range ?HEMOGLOBIN A1C % (HH) 6.8 * Examination: ???Ophthalmology Referral: ?DIABETES EYE EXAM?Procedure Performed:?Yes ?Date of Exam Performed?07/18/2024 ?Diabetic Retinopathy Screening:?Yes ?Retinal Screening Performed:?Yes ?Findings of Diabetic Eye Exam:?no retinopathy?Neurological: ?SENSORY:? Neurological exam demonstrates, reduced light touch sensation, reduced sharp/dull pin prick discrimination , B/L, 5.07 monofilament test performed at plantar aspects of 5 varied sites per foot shows sensation, reduced , B/L.?Nails: ?NAILS are:?Elongated, overgrown, dystrophic, lytic, greater than 3mm thick, discolored and friable with crumbly malodorous subungual debris, TA, T1, T2, T3, T4, T5, T6, T7, T8, T9.?Dermatologic: ?SKIN FINDINGS:?Skin exam reveals Keratotic lesion(s) located at, Medial, IPJ, TA, Medial, IPJ, T5, SUB MTH (s), 1, B/L, Plantar Heel(s), B/L.?Orthopedic: ?MUSCLE STRENGTH:?5/5 all groups in a symmetrical fashion, B/L.?GAIT ABNORMALITY:?apropulsive, unstable/unsteady relating occasional difficulty with balance, cane-assisted.?DIGITAL DEFORMITIES:?Digital contracture, PIPJ, 2-5 B/L, incompl-reducible to push-up test, no over, nor underlapping,?there is?evidence of shoe producing skin irritation.?FOOTWEAR EVALUATION:?worn, non-supportive, shoe gear properties exacerbate patient's foot/toe deformity.?Vascular: ?DP PULSES (B):?1/, B/L.?PT PULSES (B):? 1/4, B/L.?CAPILLARY FILL TIME:?3 secs. per digit, B/L.?TROPHIC CONDITION-TEXTURE/ELASTICITY/TURGOR/HAIR GROWTH (B):?normal, B/L.?TEMPERTURE GRADIENT (C):?warm to cool, proximal to distal, B/L.?PIGMENTATION:?normal, B/L.?EDEMA (C):?no edema.?TELANGECTASIA:?absent.?VARICOSITIES:?absent.?General Examination: ?GENERAL APPEARANCE:?Reveals a pleasant, alert, well nourished, well- developed, well hydrated individual, who demonstrates proper attention to hygiene/body habitus, and is in no acute distress, Pt serves as own historian for office visit today.?ORIENTED:?person, place, and time.?FOOT EXAM:?Lower Extremity Neurological Exam performed:?Yes ?Visual exam of foot performed:?Yes ?Date?11/18/2024 ?Footwear Evaluation?Footwear Evaluation performed:?Yes??? Assessment: * Assessment: 1.?Type 2 diabetes mellitus with diabetic polyneuropathy - E11.42 (Primary)???2.?Tinea unguium - B35.1???3.?Other hammer toe(s) (acquired), right foot - M20.41???Specify :Chronic problem, Worse (4),Rx Management (4)???4.?Other hammer toe(s) (acquired), left foot - M20.42???Specify :Chronic problem, Worse (4),Rx Management (4)??? Plan: * Treatment: 2.?Other hammer toe(s) (acqu ired), right foot? Start Extra Depth Orthopedic Shoes (1 Pair) with Customized Heat Molded Multidensity Innersoles (3 Pair), as directed, Dx: NIDDM/Polyneuropathy (E11.42), Hammertoe Foot Deformity (M20.41,M20.42), Preulcerative Skin Lesion(s) (L85.1, 1, Refills 0.?? Notes: Patient Educated with: DIABETIC FOOT CARE INSTRUCTIONS.pdf (DIABETIC FOOT CARE INSTRUCTIONS.pdf)?? * Procedures:?Debride Nail 6-10:?Nail debridement?Due to the clinical pathology outlined in the exam findings, performance of this nail treatment is medically necessary as its management by an unskilled/untrained nonprofessional would put this patients foot and overall health at risk. Therefore, debridement to affected nail(s), as described in exam (?TA, T1, T2, T3, T4, T5, T6, T7, T8, T9?), was performed exclusively by the physician of record to reduce/remove overall nail length, girth, thickness, subungual debris, and necrotic tissue, by manual and/or electrical means through the use of a nail nipper and/or dremel-type regrinder operator, to a more viable healthy nail plate or bed tissue 6- 10 nails in total. Silver nitrate was used for any petechial bleeding as necessary. Definitive antifungal treatment options, both pharmaceutical and surgical, have been reviewed and discussed with the patient. The patient solely prefers the use of intermittent/as needed professional debridement services for their nail condition and understands the need for additional periodic treatments to maintain effectiveness in symptomatic relief - 63485.?Keratoma Treatment:?Parring or Cutting of Benign Hyperkeratotic Lesion(s)?(-57) More than 4 Lesions - Due to the at risk nature of the patients medical condition as documented in the exam findings, performance of this keratoderma treatment is medically necessary as its management by an unskilled/untrained nonprofessional would put this patients foot and overall health at risk. Therefore, the benign hyperkeratotic lesions, (6) in total, locations as stated and described in the exam (?Medial,?IPJ,?TA,?Medial,?IPJ,?T5,?SUB MTH (s),?1,?B/L,?Plantar Heel(s),?B/L?), were pared, and/or cut utilizing a sterile 15 blade, tissue nippers, and/or power dremel instrumentation by the physician of record - [id number].? * Procedure Codes:?19463 DEBRI DE NAIL, 6 OR MORE, Modifiers: XS 73797 TRIM SKIN LESIONS, OVER 4, Modifiers: XS * Preventive Medicine:? ??Counseling:?Discussion:?-14: Office or other outpatient visit for the evaluation and management of an established patient, which required a medically appropriate history and/or examination and MODERATE level of DECISION MAKING for: 1 OR MORE CHRONIC PROBLEM(S) THATS WORSENING, 2 STABLE CHRONIC PROBLEMS, A NEWLY DIAGNOSED PROBLEM WITH UNCERTAIN PROGNOSIS, AN ACUTE COMPLICATED INJURY WITH MULTIPLE TREATMENT OPTIONS, OR AN ACUTE PROBLEM WITH ACCOMPANYING SYSTEMIC SYMPTOMS, THAT POSE(S) A MODERATE RISK OF MORBIDITY. THIS CONDITION MAY ALSO INCLUDE RX DRUG MANAGEMENT, OR A DECISON FOR MINOR SURGERY. The visit on the day of the encounter encompassed interpreting the data and educating the patient as to the nature of their condition, treatment options available according to their individual PMH, meds, allergies, and overall health/living conditions, as well as any potential risks or complications that may occur from a failure to adhere to, and participate in, the recommended course of therapy. The discussion included a complete verbal, and/or written explanation of the examination results, any x-rays taken, the proposed diagnosis, and outline of the treatment plan. A schedule for future care needs was also explained. The patient verbalized an understanding of the instructions at this time and agreed to be an active participant in their treatment. If the patient should think of any questions or concerns after the visit, I have encouraged the patient to call the office.?Diabetic Footcare:?The patient was advised against future self nail/callus care due to inherent risks for infection, loss of limb/life given diabetes, neuropathy.?Digital Surgery:?Digital surgery was discussed with the patient, We elected to try conservative treatment at the present time, due to the patients medical history and increased asssociated post-operative risks.?Digital Treatment:?HT- I explained to the patient the possible etiologies of Hammertoes, including genetics/foot type/shoegear/activity level/exercise routine and the risks/benefits of all the different treatment options for their pain including: No treatment at all, Rest, Ice, New/supportive/wider/deeper Shoegear, Digital Padding/Strapping/Taping/Bracing/Gel protective sleeves, Foot/Ankle AFO Bracing, Stretching exercises, Deep Tissue Massage, Arch support/shoe inserts with splay metatarsal padding, and Custom orthoses. I insisted that any digital devices be removed daily and not worn overnight for safety. The patient is to carefully examine the toes daily for any skin irritation while using any splinting or padding device. The advantages and disadvantages of each option were discussed and the patients questions re: shoegear, padding, custom vs prefabricated inserts, activity level, and consistency in home treatment regimens for optimal success were answered to their verbally confirmed satisfaction.?Shoe Gear Counseling:?SHOE Rx - The patient was counseled in great detail on their muscoloskeletal foot and toe deformities which coincided with the dermatological presentations visualized on exam. We discussed how their deformities put the integrity of their feet at risk for potential pedal complications which makes the accomidative diabetic shoes and cutomizable inserts medically necessary. We discussed the different shoe and insert treatment types and options, as well as the important advantages for adhering to regularly wearing these accomidative devices daily. The patient was made aware of the fact that a failure to abide by these recommedations may be deleterious to their foot health as they are able to prevent many pedal complications such as skin irritation, skin ulceration, infection, and even loss of toe/foot/leg/or life. Time was also spent with the patient dispensing and discussing proper diabetic footcare techniques including daily skin moisturization, daily foot inspection for any interruption in skin integrity including open lesions, or sign of infection such as redness/malodor/drainage/swelling. Also discussed and recommended were procedures regarding daily shoe inspection for the presence of internal foreign bodies as well as any visualized irregular shoe or insert wear. Patient questions re: shoes, inserts, and self foot inspections were answered to their satisfaction as the patient verbally confirmed a full understanding of the above information. A Rx for Extra Depth Orthopedic Shoes with 3 pair of custom heat-molded inserts was dispensed.? ??Screening/Special Tests:?Fall Risk?Screening:?No falls in the past year ?FALLS: Screening for Future Fall Risk?Have you had any falls with injury in the past year??No * Follow Up:?prn * Images: * Sign off status: Completed true * Provider:?Cesar Castillo DPM Date:?2024 Generated for Gabriel hernandez/Elsie/Kamron on:?11/22/2024 02:02 PM EDT History and Physical Notes * HPI (History of Present Illness) Category Sub-Category Detail Notes Category Not es Toe pain Location: B/L feet Duration: several years Course: worse Aggravated by: shoes, any pressure Treatments: change in shoes At Risk footcare Pt States Last PCP Visit: Date: 5 Examination Category Sub-Category Detail Notes Category Not es Neurological SENSORY: Neurological exa m demonstrates, reduced light touch sensation, reduced sharp/dull pin prick discrimination , B/L, 5.07 monofilament test performed at plantar aspects of 5 varied sites per foot shows sensation, reduced , B/L Dermatologic SKIN FINDINGS: Skin exam reveal s Keratotic lesion(s) located at, Medial, IPJ, TA, Medial, IPJ, T5, SUB MTH (s), 1, B/L, Plantar Heel(s), B/L Orthopedic GAIT ABNORMALITY: apropulsive, u nstable/unsteady relating occasional difficulty with balance, cane-assisted FOOTWEAR EVALUATION: worn, non-supportiv e, shoe gear properties exacerbate patient's foot/toe deformity DIGITAL DEFORMITIES: Digital contracture , PIPJ, 2-5 B/L, incompl-reducible to push-up test, no over, nor underlapping, there is evidence of shoe producing skin irritation MUSCLE STRENGTH: 5/5 all groups in a symmetrical fashion, B/L General Examination GENERAL APPEARANCE: Reveals a pleasant, alert, well nourished, well-developed, well hydrated individual, who demonstrates proper attention to hygiene/body habitus, and is in no acute distress, Pt serves as own historian for office visit today FOOT EXAM: Lower Extremity Neurological Exa m performed:: Yes Visual exam of foot performed:: Yes Date: 11/18/2024 ORIENTED: person, place, and t yunior Footwear Evaluation Footwear Evaluation performe d:: Yes Ophthalmology Referral DIABETES EYE EXAM Procedure Perform ed:: Yes ?Date of Exam Performed: 07/18/2024 Diabetic Retinopathy Screening:: Yes Retinal Screening Performed:: Yes Findings of Diabetic Eye Exam:: no [...] and friable with crumbly malodorous subungual debris, TA, T1, T2, T3, T4, T5, T6, T7, T8, T9
--- OUTSIDE RECORDS SUMMARY | 2024-11-22 14:02 | XMS_ITS ---
Author Organization [facility] Address [address] [place] [address] Care Team Providers Care Ethylbenzene Converter Operator Name Role Phone Ronak YOUNG, Nhan Primary Care Provider Unavailab Valente Anand [phone] Problems Problem Type SNOMED Code ICD Code Onset Dates Problem Status W/U Status Risk Notes Problem Diverticular disease of colon (310738547) Diverticulosis of large intestine without perforation or abscess without bleeding (K57.30) Active confirmed Encounters Encounter Location Date Provider Diagnosis [facility] Outpatient [address] [place] [phone] 12/09/2023 Valente Manzo Rectal bleeding K6 2.5 [...] Information Progress Notes * JI MEEHAN MDOB:[birth year] (78 yo F)Acc No.[id number]:12/09/2023 COLON WITH MAC Patient:?JI MEEHAN Provider:?Valente Manzo MD :1945???Age:77 Y???Sex:Female D ate:12/09/2023 Address:[address] [id number] Pcp:Nhan Simons MD Subjective: * Chief Complaints: * ??? * Medical History:? Objective: * Vitals:? Assessment: * Assessment: 1.?Rectal bleeding - K62.5 ( Primary)???2.?Diverticulosis of large intestine without perforation or abscess without bleeding - K57.30???3.?Other hemorrhoids - K64.8??? Plan: * Treatment: * Procedure Codes:?33035 DIAGN OSTIC COLONOSCOPY, 0529F INTRVL 3+YRS PTS CLNSCP DOCD, 0528F RCMND FLW-UP 10 YRS DOCD, Modifiers: 1P * * The named appointment provid er may or may not be the originator of this progress note, and it is not deemed complete until electronically signed by the appointment provider. Sign off status: Pending * Provider:?Valente Manzo MD Date:? 024 Generated for Gabriel hernandez/Elsie/Rosa Iselasmitting on:?11/22/2024 02:02 PM EDT
--- OUTSIDE RECORDS SUMMARY | 2024-11-22 14:02 | XMS_ITS ---
Author Organization [facility] Address [address] [place] [id number] Care Team Providers Care Branch Administrator Name Role Phone Ronak YOUNG, Nhan Primary Care Provider Valente Cruz [phone] Allergies Allergen (clinical drug ingredient) Drug/Non Drug Allergy documented on EMR Reaction Allergy Type Onset Date Status hydromorphone Dilaudid Unknown Drug Allergy Act wandy meperidine Demerol Unknown Drug Allergy Active REASON FOR VISIT er visit follow up Medications Medication SIG (Take, Route, Frequency, Duration) Notes Start Date End Date Status Jardiance 10 MG TAKE 1 TABLET BY KALEB TH EVERY DAY DIRECTED Oral for 30 Not-Taking Pantoprazole Sodium 40 MG TAKE 1 TABLET BY MOUTH ONCE A DAY AT 5PM Oral Active Praluent 75 MG/ML Subcutaneous for 28 Active Clopidogrel Bisulfate 75 MG Oral for 90 Not-Taking Beano Not-Taking Aspirin Adult Low Dose Active Metoprolol Tartrate 75 MG 1 tablet with food Orally Twice a day Active Celecoxib 200 MG 1 capsule with food Orally Twice a day Active amLODIPine Besylate 10 MG TAKE 1 TABLET BY MOUTH EVERYDAY AT BEDTIME Oral for 90 Active Allopurinol 300 MG Oral for 90 Active Tylenol Active Loratadine Active Biotin Active Vitamin D3 Active Folic Acid Active Iron (Ferrous Sulfate) 325 (65 Fe) MG 1 tablet Orally Three times a Week for 30 day(s) Active Magnesium Active Social History Tobacco Use: Social History Observation Description Date Details (start date - stop date) Never Smoker NA - NA Tobacco Use/Smoking Question Answer Notes Patient is a nonsmoker Alcohol Screen Question Answer Notes Did you have a drink containing alcohol in the p ast year? No Points 0 Interpretation Negative Section Notes: Nonsmoker; no sig alcohol Problems Problem Type SNOMED Code ICD Code Onset Dates Problem Status W/U Status Risk Notes Problem Hemorrhage of colon due to diverticulosis (053544126385491) Diverticulosis of colon with hemorrhage (K57.31) Active confirmed Problem Acute posthemorrhagic anemia (594292893) Acute posthemorrhagic anemia (D62) Active confirmed Vital Signs Blood pressure systolic 00 mm Hg 01/29/20 24 Blood pressure diastolic 00 mm Hg 024 Height 65 in 01/29/2024 Weight 199 lbs 01/29/2024 BMI 33.11 kg/m2 01/29/2024 Encounters Encounter Location Date Provider Diagnosis [facility] [address] [place] [address] 01/29/2024 Valente Manzo Lower GI bleed K92.2 ; Diverticulosis of colon with hemorrhage K57.31 and Acute posthemorrhagic anemia D62 Assessments Encounter Date Diagnosis (ICD Code) Assessment Notes Treatment Notes Treatment Clinical Notes Section Notes 01/29/2024 Lower GI bleed (ICD-10 - K92.2) Continue Iron pills at least once a day Minimize Celebrex Call if bleeding recurs Given Ji's recent clinical history and recent colonoscopy this seems quite consistent with recurrent episodes of diverticular bleeding. Given no description of melena nor any worsening upper GI complaints, I don't think this is reflective of an upper GI bleed. The description of bright red blood per rectum certainly seems consistent with a lower GI bleed as opposed to an upper GI bleed. Her anemia is certainly related to this ongoing lower GI bleeding. I don't think a repeat colonoscopy would be required given the findings just 2 months ago and her clinical history. I don't think an upper endoscopy is needed given the description of her bleeding and no report of melena. At this point things do seem to be stable after the transfusions. I advised her that it would be best if she can try to minimize or stop Celebrex altogether. She obviously needs the aspirin in relation to her previous coronary artery disease and coronary artery bypass. We did review diverticular bleeding can be unpredictable but hopefully at this point things will remain stable in that regard. I did advise her to maintain a healthy diet and a regular bowel pattern so as to avoid constipation and straining. I shall check a CBC today to be sure things are continuing to increase after the transfusions last week. If things remain well I will plan to see her in several months for a followup visit. However, I did advise her to certainly call or go to the ER if she develops recurrent bleeding. If she has significant bleeding we can try to obtain a CT-angiogram of the abdomen to try to delineate the site of the blood loss although again, based on the colonoscopy, I would suspect it is from the sigmoid diverticulosis. Ji was comfortable with this plan. Thank you again for allowing me to participate in Ji's care. I shall continue to keep you advised of her progress. 01/29/2024 Diverticulosis of colon with hemorrhage (ICD-10 - K57.31) Given Ji's recent clinical history and recent colonoscopy this seems quite consistent with recurrent episodes of diverticular bleeding. Given no description of melena nor any worsening upper GI complaints, I don't think this is reflective of an upper GI bleed. The description of bright red blood per rectum certainly seems consistent with a lower GI bleed as opposed to an upper GI bleed. Her anemia is certainly related to this ongoing lower GI bleeding. I don't think a repeat colonoscopy would be required given the findings just 2 months ago and her clinical history. I don't think an upper endoscopy is needed given the description of her bleeding and no report of melena. At this point things do seem to be stable after the transfusions. I advised her that it would be best if she can try to minimize or stop Celebrex altogether. She obviously needs the aspirin in relation to her previous coronary artery disease and coronary artery bypass. We did review diverticular bleeding can be unpredictable but hopefully at this point things will remain stable in that regard. I did advise her to maintain a healthy diet and a regular bowel pattern so as to avoid constipation and straining. I shall check a CBC today to be sure things are continuing to increase after the transfusions last week. If things remain well I will plan to see her in several months for a followup visit. However, I did advise her to certainly call or go to the ER if she develops recurrent bleeding. If she has significant bleeding we can try to obtain a CT-angiogram of the abdomen to try to delineate the site of the blood loss although again, based on the colonoscopy, I would suspect it is from the sigmoid diverticulosis. Ji was comfortable with this plan. Thank you again for allowing me to participate in Ji's care. I shall continue to keep you advised of her progress. 01/29/2024 Acute posthemorrhagic anemia (ICD-10 - D62) Given Ji's recent clinical history and recent colonoscopy this seems quite consistent with recurrent episodes of diverticular bleeding. Given no description of melena nor any worsening upper GI complaints, I don't think this is reflective of an upper GI bleed. The description of bright red blood per rectum certainly seems consistent with a lower GI bleed as opposed to an upper GI bleed. Her anemia is certainly related to this ongoing lower GI bleeding. I don't think a repeat colonoscopy would be required given the findings just 2 months ago and her clinical history. I don't think an upper endoscopy is needed given the description of her bleeding and no report of melena. At this point things do seem to be stable after the transfusions. I advised her that it would be best if she can try to minimize or stop Celebrex altogether. She obviously needs the aspirin in relation to her previous coronary artery disease and coronary artery bypass. We did review diverticular bleeding can be unpredictable but hopefully at this point things will remain stable in that regard. I did advise her to maintain a healthy diet and a regular bowel pattern so as to avoid constipation and straining. I shall check a CBC today to be sure things are continuing to increase after the transfusions last week. If things remain well I will plan to see her in several months for a followup visit. However, I did advise her to certainly call or go to the ER if she develops recurrent bleeding. If she has significant bleeding we can try to obtain a CT-angiogram of the abdomen to try to delineate the site of the blood loss although again, based on the colonoscopy, I would suspect it is from the sigmoid diverticulosis. Ji was comfortable with this plan. Thank you again for allowing me to participate in Ji's care. I shall continue to keep you advised of her progress. Plan Of Treatment Medication Medication Name Sig Start Date Stop Date Notes Pantoprazole Sodium 40 MG TAKE 1 TABLET BY MOUTH ONCE A DAY AT 5PM Oral Treatment Notes Assessment Notes Lower GI bleed Continue Iron pills at least once a day Minimize Celebrex Call if bleeding recurs Pending Test Test Name Order Date CBC w DIFF 01/29/2024 Next Appt Details Follow Up: 4 Months, Reason: Progress Notes * JI MEEHAN MDOB:[birth year] (78 yo F)Acc No.[id number]:01/29/2024 Progress Notes Patient:?JI MEEHAN Provider:?Valente Manzo MD :1945???Age:78 Y???Sex:Female D ate:01/29/2024 [id number] Pcp:Nhan Simons MD Subjective: * Chief Complaints: * ???Er visit follow up * HPI: ???incontinence:? I saw Ji in the office today for evaluation of recent recurrent lower GI bleeding and anemia. ?I last saw Ji in early November at which time she underwent a colonoscopy for the evaluation of some lower GI bleeding. This revealed only some diverticulosis and small internal hemorrhoids. She was well up until the middle of December. Since that time she has had 3 episodes of rectal bleeding, each one lasting for several days. She describes that these episodes consisted of bright red blood. She never saw any sign of melena. There was no associated abdominal pain nor vomiting. She does take daily pantoprazole for heartburn which works well in that regard. She has not noticed any early satiety, nausea, dysphagia, jaundice, nor any unintentional weight loss. She does take a low-dose aspirin for underlying coronary artery disease and previous coronary artery bypass. She also takes daily Celebrex for arthritis. ?As you know, she was seen by you and was found to be anemic. She went to [facility] ER where her hemoglobin was 7.8. She received 2 units of blood there and was observed overnight. She had no obvious bleeding at that point and was discharged with a Hemoglobin of 8.8. Since discharge on January 22 she has been feeling well and has not had any further bleeding. She does remain on her low-dose aspirin but has been trying to minimize the use of Celebrex. She does not use any other NSAIDs. ?Other labs from [facility] included a BUN of 27, creatinine 1.2, iron of 44, iron saturation 11%, and a normal B12 and folate level. * ROS:?General/Constitutional:?Change in appetite?denies.?Chills?denies.?Fatigue?denies.?Ophthalmologic:?Comments?all negative.?ENT:?Comments?all negative.?Respiratory:?hemoptysis?denies.?Cough?denies.?Cardiovascular:?Chest pain?denies.?Orthopnea?denies.?Gastrointestinal:?Comments?See HPI for details.?Genitourinary:?Hematuria?denies.?Dysuria?denies.?Musculoskeletal:?Painful joints?denies.?Weakness?denies.?Skin:?Itching?denies.?Rash?denies.?Neurologic:?Headache?denies.?Seizures?denies.?Psychiatric:?Comments?all negative.? * Medical History:? * Surgical History:?Left knee replacement [id number] * Hospitalization/Major Diagno stic Procedure:?No Hospitalization History. * Family History:?Father: dece ased, diagnosed with HTN (hypertension).?Mother: .? No known hx of colorectal cancer. * Social History:?Tobacco Use:?Tobacco Use/Smoking?Patient is a?nonsmoker.?Drugs/Alcohol:?Alcohol Screen?Did you have a drink containing alcohol in the past year??No,?Points?0,?Interpretation?Negative.?Miscellaneous:?Marital status: . 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 ???Nonsmoker; no sig alcohol. * Medications:?TakingIron (Davin trista Sulfate) 325 (65 Fe) MG Tablet 1 tablet Orally Three times a WeekMagnesium Biotin Vitamin D3 Folic Acid Tylenol Loratadine Aspirin Adult Low Dose Metoprolol Tartrate 75 MG Tablet 1 tablet with food Orally Twice a dayCelecoxib 200 MG Capsule 1 capsule with food Orally Twice a dayamLODIPine Besylate 10 MG Tablet TAKE 1 TABLET BY MOUTH EVERYDAY AT BEDTIME Oral Pantoprazole Sodium 40 MG Tablet Delayed Release TAKE 1 TABLET BY MOUTH ONCE A DAY AT 5PM Oral Allopurinol 300 MG Tablet Oral Praluent 75 MG/ML Solution Auto-injector Subcutaneous Taking Iron (Ferrous Sulfate) 325 (65 Fe) MG Tablet 1 tablet Orally Three times a WeekTaking Magnesium Taking Biotin Taking Vitamin D3 Taking Folic Acid Taking Tylenol Taking Loratadine Taking Aspirin Adult Low Dose Taking Metoprolol Tartrate 75 MG Tablet 1 tablet with food Orally Twice a dayTaking Celecoxib 200 MG Capsule 1 capsule with food Orally Twice a dayTaking amLODIPine Besylate 10 MG Tablet TAKE 1 TABLET BY MOUTH EVERYDAY AT BEDTIME Oral Taking Pantoprazole Sodium 40 MG Tablet Delayed Release TAKE 1 TABLET BY MOUTH ONCE A DAY AT 5PM Oral Taking Allopurinol 300 MG Tablet Oral Taking Praluent 75 MG/ML Solution Auto-injector Subcutaneous Not-Taking/PRNClopidogrel Bisulfate 75 MG Tablet Oral Beano Jardiance 10 MG Tablet TAKE 1 TABLET BY MOUTH EVERY DAY DIRECTED Oral Medication List reviewed and reconciled with the patientNot-Taking/PRN Clopidogrel Bisulfate 75 MG Tablet Oral Not-Taking/PRN Beano Not-Taking/PRN Jardiance 10 MG Tablet TAKE 1 TABLET BY MOUTH EVERY DAY DIRECTED Oral Medication List reviewed and reconciled with the patient * Allergies:?DilaudidDemanuelolye s[Allergies Verified] Objective: * Vitals:?Wt: 199 lbs, Ht: 65 in, BMI:33.11 Index, BP: 00/00 mm Hg. * Examination: ???General Examination: ?GENERAL APPEARANCE:?pleasant, well nourished, well developed, in no acute distress.?EYES:?sclera non-icteric.?ORAL CAVITY:?mucosa moist.?NECK/THYROID:?no cervical lymphadenopathy, neck supple.?SKIN:?nonjaundiced, no spider angiomata.?HEART:?S1, S2 normal.?LUNGS:?clear to auscultation bilaterally.?ABDOMEN:?normal bowel sounds, no guarding or rigidity, no guarding or rigidity, no masses palpable, soft, nontender, nondistended.?NEUROLOGIC:?alert and oriented.? Assessment: * Assessment: 1.?Lower GI bleed - K92.2 (P rimary)?2.?Diverticulosis of colon with hemorrhage - K57.31?3.?Acute posthemorrhagic anemia - D62? Given Ji's recent cli nical history and recent colonoscopy this seems quite consistent with recurrent episodes of diverticular bleeding. Given no description of melena nor any worsening upper GI complaints, I don't think this is reflective of an upper GI bleed. The description of bright red blood per rectum certainly seems consistent with a lower GI bleed as opposed to an upper GI bleed. Her anemia is certainly related to this ongoing lower GI bleeding. I don't think a repeat colonoscopy would be required given the findings just 2 months ago and her clinical history. I don't think an upper endoscopy is needed given the description of her bleeding and no report of melena. At this point things do seem to be stable after the transfusions. I advised her that it would be best if she can try to minimize or stop Celebrex altogether. She obviously needs the aspirin in relation to her previous coronary artery disease and coronary artery bypass. We did review diverticular bleeding can be unpredictable but hopefully at this point things will remain stable in that regard. I did advise her to maintain a healthy diet and a regular bowel pattern so as to avoid constipation and straining. I shall check a CBC today to be sure things are continuing to increase after the transfusions last week. If things remain well I will plan to see her in several months for a followup visit. However, I did advise her to certainly call or go to the ER if she develops recurrent bleeding. If she has significant bleeding we can try to obtain a CT-angiogram of the abdomen to try to delineate the site of the blood loss although again, based on the colonoscopy, I would suspect it is from the sigmoid diverticulosis. Ji was comfortable with this plan. Thank you again for allowing me to participate in Ji's care. I shall continue to keep you advised of her progress. Plan: * Treatment: 2.?Diverticulosis of colon w ith hemorrhage?LAB: CBC w DIFF 3.?Acute posthemorrhagic ane charly?LAB: CBC w DIFF 4.?Others? Continue Pantoprazole Sodium Tablet Delayed Release, 40 MG, TAKE 1 TABLET BY MOUTH ONCE A DAY AT 5PM, Oral.?? * Procedure Codes:?1036F TOBAC CO [id number] BP SCR NOT PRFRM REC REASON NOS * Preventive Medicine:? ??Counseling:?Care goal follow-up plan:?Above Normal BMI Follow-up?Giving encouragement to exercise,?BMI management provided?Yes.? ??Urinary Incontinence:?Urinary Incontinence?Assessment:?Present,?Plan of care documented:?Yes,?Type of plan of care:?Lifestyle interventions.? * Follow Up:?4 Months * * Sign off status: Completed true * Provider:?Valente Manzo MD Date:? 024 Generated for Gabriel hernandez/Elsie/Kamron on:?11/22/2024 02:02 PM EDT History and Physical Notes * HPI (History of Present Illness) Category Sub-Category Detail Notes Category Not es incontinence I saw Ji in the office today for evaluation of recent recurrent lower GI bleeding and anemia. I last saw Ji in early November at which time she underwent a colonoscopy for the evaluation of some lower GI bleeding. This revealed only some diverticulosis and small internal hemorrhoids. She was well up until the middle of December. Since that time she has had 3 episodes of rectal bleeding, each one lasting for several days. She describes that these episodes consisted of bright red blood. She never saw any sign of melena. There was no associated abdominal pain nor vomiting. She does take daily pantoprazole for heartburn which works well in that regard. She has not noticed any early satiety, nausea, dysphagia, jaundice, nor any unintentional weight loss. She does take a low-dose aspirin for underlying coronary artery disease and previous coronary artery bypass. She also takes daily Celebrex for arthritis. As you know, she was seen by you and was found to be anemic. She went to [facility] ER where her hemoglobin was 7.8. She received 2 units of blood there and was observed overnight. She had no obvious bleeding at that point and was discharged with a Hemoglobin of 8.8. Since discharge on January 22 she has been feeling well and has not had any further bleeding. She does remain on her low-dose aspirin but has been trying to minimize the use of Celebrex. She does not use any other NSAIDs. Other labs from [facility] included a BUN of 27, creatinine 1.2, iron of 44, iron saturation 11%, and a normal B12 and folate level. Examination Category Sub-Category Detail Notes Category Not es General Examination GENERAL APPEARANCE: pleasant , well nourished, well developed, in no acute distress HEAD: EYES: sclera non-icteric EARS: NOSE: THROAT: NECK/THYROID: no cervical lymphade nopathy, neck supple HEART: S1, S2 normal CHEST: LUNGS: clear to auscultatio n bilaterally ABDOMEN: normal bowel sounds, no guarding or rigidity, no guarding or rigidity, no masses palpable, soft, nontender, nondistended NEUROLOGIC: alert and oriented SKIN: nonjaundiced, no spi susie angiomata EXTREMITIES: PERIPHERAL PULSES: BACK: BREASTS: MUSCULOSKELETAL: MALE GENITOURINARY: LYMPH NODES: RECTAL EXAM: FEMALE GENITOURINARY: ORAL CAVITY: mucosa moist
--- OUTSIDE RECORDS SUMMARY | 2024-11-22 14:03 | XMS_ITS | Clinical Summary ---
Author Organization [facility] Address [address] [place] [address] Care Team Providers Care Occupational Therapy Assistant Name Role Phone Unavailable Primary Care Provider Unavailabl e Social History Tobacco Use Types Packs/Day Years Used Date Smoking Tobacco: Never Assessed Comments Unknown Sex and Gender Information Value Date Recorded Sex Assigned at Not on file Legal Sex Female 2:28 PM EST Gender Identity Not on file Sexual Orientation Not on file Plan of Treatment Health Maintenance Due Date Last Done Comments DTaP,Tdap,and Td Vaccines (1 - Tdap) 1965 Pneumococcal Vaccine: 50+ Years (1 of 1 - PCV) 1996 Zoster Vaccines (1 of 2) 1996 RSV Immunization Adult Patients (1 - 1-dose 75+ series) 2021 COVID-19 Vaccine (3 - 2023-2 5 season) 2024 10/22/2020, 10/01/2020 Influenza Vaccine (#1) 2024 Depression Screening 05/26/2024 Falls Risk Assessment 05/26/2024 Hepatitis C Screening 05/26/2024 Osteoporosis Screening (Bone Density Screening) 05/26/2024 Social Influencers of Health Screening 05/26/2024 HIB Vaccines Aged Out No longer eligi ble based on patient's age to complete this topic HPV Vaccines Aged Out No longer eligi ble based on patient's age to complete this topic Hepatitis A Vaccines Aged Out No long er eligible based on patient's age to complete this topic Hepatitis B Vaccines Aged Out No long er eligible based on patient's age to complete this topic IPV Vaccines Aged Out No longer eligi ble based on patient's age to complete this topic MMR Vaccines Aged Out No longer eligi ble based on patient's age to complete this topic Meningococcal ACWY Vaccine Aged Out N o longer eligible based on patient's age to complete this topic Meningococcal B Vaccine Aged Out No l onger eligible based on patient's age to complete this topic RSV Immunization Patients Under 20 months Aged Out No longer eligible b ased on patient's age to complete this topic Varicella Vaccines Aged Out No longer eligible based on patient's age to complete this topic
--- OUTSIDE RECORDS SUMMARY | 2024-11-22 14:03 | XMS_ITS ---
Author Organization [facility] Address [address] [place] [phone] Care Team Providers Care Actuarial Mathematician Name Role Phone Ronak YOUNG, Nhan Primary Care Provider Valente Cruz [phone] Allergies Allergen (clinical drug ingredient) Drug/Non Drug Allergy documented on EMR Reaction Allergy Type Onset Date Status hydromorphone Dilaudid Unknown Drug Allergy Act wandy meperidine Demerol Unknown Drug Allergy Active REASON FOR VISIT Patient presents today for diverticulosis Medications Medication SIG (Take, Route, Frequency, Duration) Notes Start Date End Date Status Iron (Ferrous Sulfate) 325 (65 Fe) MG 1 tablet Orally Three times a Week for 30 day(s) Activ e Pantoprazole Sodium 40 MG TAKE 1 TABLET BY MOUTH ONCE A DAY AT 5PM Oral Active Beano Active Praluent 75 MG/ML Subcutaneous for 28 Active Allopurinol 300 MG Oral for 90 Active Metoprolol Tartrate 75 MG 1 tablet with food Orally Twice a day Active amLODIPine Besylate 10 MG TAKE 1 TABLET BY MOUTH EVERYDAY AT BEDTIME Oral for 90 Active Celecoxib 200 MG 1 capsule with food Orally Twice a day Active Vitamin D3 Active Aspirin Adult Low Dose Active Loratadine Active Tylenol Active Folic Acid Active Magnesium Active Biotin Active Social History Tobacco Use: Social History [...] Problem Status W/U Status Risk Notes Problem Gastroesophageal reflux disease (disorder) (854231853) Chronic GERD (K21.9) Active confirmed Problem Anemia (768160964) Anemia (D64.9) Active confirmed Vital Signs Blood pressure systolic 00 mm Hg 05/31/20 24 Blood pressure diastolic 00 mm Hg 024 Height 65 in 05/31/2024 Weight 200 lbs 05/31/2024 BMI 33.28 kg/m2 05/31/2024 Encounters Encounter Location Date Provider Diagnosis [facility] [address] [place] [address] 05/31/2024 Valente Manzo Diverticulosis of co holly K57.30 ; Chronic GERD K21.9 and Anemia D64.9 Assessments Encounter Date Diagnosis (ICD Code) Assessment Notes Treatment Notes Treatment Clinical Notes Section Notes 05/31/2024 Diverticulosis of colon (ICD-10 - K57.30) Overall, Cristy appears well. She is not having any particularly new nor worrisome GI complaints. She has had no further signs of GI bleeding. Her reflux seems to be quite stable on the regimen of pantoprazole and p.r.n. TUMS. At this point I advised her to certainly continue her PPI on a long-term basis for continued symptomatic relief of her reflux. I don't think she needs any further workup from an endoscopic standpoint at this time. As such, if things remains stable she will see me on a p.r.n. basis. I did advise her to certainly call if she has Any problems or questions I can be of assistance with. Cristy was comfortable with this plan. Thank you again for allowing me to have participated In Cristy's care. Please do not hesitate to contact me if I can be of any further assistance in the future. 05/31/2024 Chronic GERD (ICD-10 - K21.9) Continue the Pantoprazole and TUMS for the heartburn Overall, Cristy appears well. She is not having any particularly new nor worrisome GI complaints. She has had no further signs of GI bleeding. Her reflux seems to be quite stable on the regimen of pantoprazole and p.r.n. TUMS. At this point I advised her to certainly continue her PPI on a long-term basis for continued symptomatic relief of her reflux. I don't think she needs any further workup from an endoscopic standpoint at this time. As such, if things remains stable she will see me on a p.r.n. basis. I did advise her to certainly call if she has Any problems or questions I can be of assistance with. Cristy was comfortable with this plan. Thank you again for allowing me to have participated In Cristy's care. Please do not hesitate to contact me if I can be of any further assistance in the future. 05/31/2024 Anemia (ICD-10 - D64.9) Continue the Iron pill three times a week Overall, Cristy appears well. She is not having any particularly new nor worrisome GI complaints. She has had no further signs of GI bleeding. Her reflux seems to be quite stable on the regimen of pantoprazole and p.r.n. TUMS. At this point I advised her to certainly continue her PPI on a long-term basis for continued symptomatic relief of her reflux. I don't think she needs any further workup from an endoscopic standpoint at this time. As such, if things remains stable she will see me on a p.r.n. basis. I did advise her to certainly call if she has Any problems or questions I can be of assistance with. Cristy was comfortable with this plan. Thank you again for allowing me to have participated In Cristy's care. Please do not hesitate to contact me if I can be of any further assistance in the future. Plan Of Treatment Treatment Notes Assessment Notes Chronic GERD Continue the Pantopr azole and TUMS for the heartburn Anemia Continue the Iron pi ll three times a week Next Appt Details Follow Up: prn, Reason: Progress Notes * CRISTY MEEHAN MDOB:[birth year] (78 yo F)Acc No.[id number]:05/31/2024 Progress Notes Patient:?CRISTY MEEHAN Provider:?Valente Manzo MD :1945???Age:78 Y???Sex:Female D ate:05/31/2024 Address:[place], [place] Pcp:Nhan Simons MD Subjective: * Chief Complaints: * ???Patient presents today fo r diverticulosis * HPI: ???incontinence:? I saw Cristy in followup today in regard to her chronic gastroesophageal reflux, previous GI bleeding in relation to diverticulosis, and anemia. ?Since I last saw Cristy in January she reports that she has been feeling well from a GI standpoint. She reports that her bowel movements have been fairly regular and without any hematochezia nor melena. She has been using an iron supplement 3 times a week and her most recent hemoglobin from just last month was normal at 12.2 with a normal MCV. It had been 11.8 in January. Last month she had normal iron studies with an iron of 123 and iron saturation of 45%. She has not needed any transfusions since the ones earlier this year at [facility]. ?She remains on daily pantoprazole but reports using occasional TUMS for heartburn. She denies any dysphagia, anorexia, early satiety, nausea, nor vomiting. She denies any abdominal pain, jaundice, nor unintentional weight loss. * ROS:?General/Constitutional:?Change in appetite?denies.?Chills?denies.?Fatigue?denies.?Ophthalmologic:?Comments?all negative.?ENT:?Comments?all negative.?Respiratory:?hemoptysis?denies.?Cough?denies.?Cardiovascular:?Chest pain?denies.?Orthopnea?denies.?Gastrointestinal:?Comments?See HPI for details.?Genitourinary:?Hematuria?denies.?Dysuria?denies.?Musculoskeletal:?Painful joints?denies.?Weakness?denies.?Skin:?Itching?denies.?Rash?denies.?Neurologic:?Headache?denies.?Seizures?denies.?Psychiatric:?Comments?all negative.? * Medical History:? * Surgical History:?Left knee replacement [id number] * Hospitalization/Major Diagno stic Procedure:?No Hospitalization [...] TABLET BY MOUTH EVERYDAY AT BEDTIME Oral Allopurinol 300 MG Tablet Oral Praluent 75 MG/ML Solution Auto-injector Subcutaneous Pantoprazole Sodium 40 MG Tablet Delayed Release TAKE 1 TABLET BY MOUTH ONCE A DAY AT 5PM Oral Beano Taking Iron (Ferrous Sulfate) 325 (65 Fe) [...] BY MOUTH EVERYDAY AT BEDTIME Oral Taking Allopurinol 300 MG Tablet Oral Taking Praluent 75 MG/ML Solution Auto-injector Subcutaneous Taking Pantoprazole Sodium 40 MG Tablet Delayed Release TAKE 1 TABLET BY MOUTH ONCE A DAY AT 5PM Oral Taking Beano DiscontinuedClopidogrel Bisulfate 75 MG Tablet Oral Jardiance 10 MG Tablet TAKE 1 TABLET BY MOUTH EVERY DAY DIRECTED Oral Medication List reviewed and reconciled with the patientDiscontinued Clopidogrel Bisulfate 75 MG Tablet Oral Discontinued Jardiance 10 MG Tablet TAKE 1 TABLET BY MOUTH EVERY DAY DIRECTED Oral Medication List reviewed and reconciled with the patient * Allergies:?Melissa s[Allergies Verified] Objective: * Vitals:?Wt: 200 lbs, Ht: 65 in, BMI:33.28 Index, BP: 00/00 mm Hg. * Examination: ???General Examination: ?GENERAL APPEARANCE:?pleasant, well nourished, well developed, in no acute distress.?EYES:?sclera non-icteric.?ORAL CAVITY:?mucosa moist.?NECK/THYROID:?no cervical lymphadenopathy, neck supple.?SKIN:?nonjaundiced, no spider angiomata.?HEART:?S1, S2 normal.?LUNGS:?clear to auscultation bilaterally.?ABDOMEN:?normal bowel sounds, no guarding or rigidity, no guarding or rigidity, no masses palpable, soft, nontender, nondistended.?NEUROLOGIC:?alert and oriented.? Assessment: * Assessment: 1.?Chronic GERD - K21.9 (Adeola antonia)?2.?Diverticulosis of colon - K57.30?3.?Anemia - D64.9? Overall, Cristy appears w ell. She is not having any particularly new nor worrisome GI complaints. She has had no further signs of GI bleeding. Her reflux seems to be quite stable on the regimen of pantoprazole and p.r.n. TUMS. At this point I advised her to certainly continue her PPI on a long-term basis for continued symptomatic relief of her reflux. I don't think she needs any further workup from an endoscopic standpoint at this time. As such, if things remains stable she will see me on a p.r.n. basis. I did advise her to certainly call if she has Any problems or questions I can be of assistance with. Cristy was comfortable with this plan. Thank you again for allowing me to have participated In Cristy's care. Please do not hesitate to contact me if I can be of any further assistance in the future. Plan: * Treatment: 2.?Anemia? Notes: Continue the Iron pill three times a week?? * Procedure Codes:?1036F TOBAC CO [id number] BP SCR NOT PRFRM REC REASON NOS * Preventive Medicine:? ??Counseling:?Care goal follow-up plan:?Above Normal BMI Follow-up?Giving encouragement to exercise,?BMI management provided?No.? ??Urinary Incontinence:?Urinary Incontinence?Assessment:?Present,?Plan of care documented:?Yes,?Type of plan of care:?Lifestyle interventions.? ??Screenings:?Fall Risk Screening?Fall Risk Assessment:?No falls in the past year,?Screening:?No falls in the past year,?Assessment:?Not performed, no reason specified,?Plan of Care:?Not documented, no reason specified.? * Follow Up:?prn * * Sign off status: Completed true * Provider:?Valente Manzo MD Date:? 024 Generated for Gabriel hernandez/Elsie/Kamron on:?11/22/2024 02:02 PM EDT History and Physical Notes * HPI (History of Present Illness) Category Sub-Category Detail Notes Category Not es incontinence I saw Cristy in followup today in regard to her chronic gastroesophageal reflux, previous GI bleeding in relation to diverticulosis, and anemia. Since I last saw Cristy in January she reports that she has been feeling well from a GI standpoint. She reports that her bowel movements have been fairly regular and without any hematochezia nor melena. She has been using an iron supplement 3 times a week and her most recent hemoglobin from just last month was normal at 12.2 with a normal MCV. It had been 11.8 in January. Last month she had normal iron studies with an iron of 123 and iron saturation of 45%. She has not needed any transfusions since the ones earlier this year at [facility]. She remains on daily pantoprazole but reports using occasional TUMS for heartburn. She denies any dysphagia, anorexia, early satiety, nausea, nor vomiting. She denies any abdominal pain, jaundice, nor unintentional weight loss. Examination Category Sub-Category Detail Notes Category Not [...]
--- OUTSIDE RECORDS SUMMARY | 2024-11-22 14:03 | XMS_ITS | Patient Health Record ---
Author Organization [facility] Address [address] [place] [address] Care Team Providers Care Lab Support Service Tech Name Role Phone Ronak YOUNG, Nhan Primary Care Provider Valente Cruz [phone] Allergies Allergen (clinical drug ingredient) Drug/Non Drug Allergy documented on EMR Reaction Allergy Type Onset Date Status hydromorphone Dilaudid Unknown Drug Allergy Act wandy meperidine Demerol Unknown Drug Allergy Active Results Component Value Reference Range Notes Glucose, Whole Blood Reviewed date:12/09/2023 01:00:40 PM Interpretation: Performing Lab:[facility], [address] [place] [phone] Notes/Report: Glucose, Whole Blood 166 60-115 mg/dL METER # : [id number] Complete Blood Count Auto Di ff Reviewed date:02/21/2024 09:30:31 PM Interpretation: Performing Lab:[facility], [address] [place] [phone] Notes/Report: White Blood Count 4.3 4.8-10.8 X10*3/uL Red Blood Count 3.87 4.20-5.50 X10*6/uL Hemoglobin 11.8 12.0-16.0 g/dl Hematocrit 36.6 37.0-47.0 % Mean Corpuscular Volume 94.6 80.0-98.0 fL Mean Corpuscular Hemoglobin 30.5 27.0-33.0 pg Mean Corpuscular HGB Conc 32.2 31.0-35.0 g/dl Red Cell Distribution Width 15.9 11.0-16.0 % Platelet Count 212 160-400 X10*3/uL Mean Platelet Volume 9.2 9.4-12.3 fL Neutrophils Percent Auto 52.7 45-73 % Imm Gran Pct Auto 0.2 0.0-0.4 % Lymphocytes Percent Auto 30.4 20-40 % Monocytes Percent Auto 11.8 2-11 % Eosinophils Percent Auto 3.7 0-4 % Basophils Percent Auto 1.2 0-2 % NRBC Pct Auto 0.0 0.0-0.2 /100WBC Neutrophils Absolute Auto 2.3 2.0-8.3 x10*3/u L Imm Gran Abs Auto 0.01 0.00-0.03 X10*3/uL Lymphocytes Absolute Auto 1.3 1.2-4.9 X10*3/u L Monocytes Absolute Auto 0.5 0.1-1.2 X10*3/uL Eosinophils Absolute Auto 0.2 0.0-0.4 X10*3/u L Basophils Absolute Auto 0.1 0.0-0.2 X10*3/uL NRBC Abs Auto 0.000 0.0-0.012 X10*3/uL Reason For Referral No Information Medications Medication SIG (Take, Route, Frequency, Duration) Notes Start Date End Date Status Magnesium Active Praluent 75 MG/ML Subcutaneous for 28 Active Iron (Ferrous Sulfate) 325 (65 Fe) MG 1 tablet Orally Three times a Week for 30 day(s) Activ e Allopurinol 300 MG Oral for 90 Active Vitamin D3 Active Biotin Active Pantoprazole Sodium 40 MG TAKE 1 TABLET BY MOUTH ONCE A DAY AT 5PM Oral Active Metoprolol Tartrate 75 MG 1 tablet with food Orally Twice a day Active Aspirin Adult Low Dose Active amLODIPine Besylate 10 MG TAKE 1 TABLET BY MOUTH EVERYDAY AT BEDTIME Oral for 90 Active Celecoxib 200 MG 1 capsule with food Orally Twice a day Active Loratadine Active Tylenol Active Folic Acid Active Beano Active Immunizations Vaccine Route Administration Date Status Comme nts Influenza Unknown 04/17/2021 Administered Social History Tobacco Use: Social History Observation Description Date Details (start date - stop date) Never Smoker NA - NA Tobacco Use/Smoking Question Answer Notes Patient is a nonsmoker Alcohol Screen Question Answer Notes Did you have a drink containing alcohol in the p ast year? No Points 0 Interpretation Negative Section Notes: Nonsmoker; no sig alcohol Nonsmoker; no sig alcohol Nonsmoker; no sig alcohol Nonsmoker; no sig alcohol Problems Problem Type SNOMED Code ICD Code Onset Dates Problem Status W/U Status Risk Notes Problem Screening for malignant neoplasm of colon (069204870) Encounter for screening for malignant neoplasm of colon (Z12.11) Active confirmed Problem Pre-procedure evaluation check (236387300) Encounter for other preprocedural examination (Z01.818) Active confirmed Problem Acute posthemorrhagic anemia (195607760) Acute posthemorrhagic anemia (D62) Active confirmed Problem Diverticular disease of colon (279692204) Diverticulosis of large intestine without perforation or abscess without bleeding (K57.30) Active confirmed Problem Long-term current use of antiplatelet drug (830471079641941) bed bug exterminator (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) use of aspirin (Z79.82) Active confirmed Problem Anemia (724127963) Anemia (D64.9) Active confir med Problem Gastrointestinal hemorrhage (61071799) Lower GI bleed (K92.2) Active confirmed Problem Hemorrhage of colon due to diverticulosis (985154337485100) Diverticulosis of colon with hemorrhage (K57.31) Active confirmed Problem Diverticulosis of colon (077333555) Diverticulosis of colon (K57.30) Active confirmed Problem Diverticular disease of colon (436225001) Colon, diverticulosis (K57.30) Active confirmed Problem Gastroesophageal reflux disease (disorder) (453499160) Chronic GERD (K21.9) Active confirmed Vital Signs Blood pressure diastolic 00 mm Hg 05/31/2024 Height 65 in 05/31/2024 Blood pressure systolic 00 mm Hg 05/31/2024 Weight 200 lbs 05/31/2024 BMI 33.28 kg/m2 05/31/2024 Encounters Encounter Location Date Provider Diagnosis [facility] [address], [place] [id number] 12/09/2023 Valente Manzo Rectal bleeding K62. 5 ; Diverticulosis of large intestine without perforation or abscess without bleeding K57.30 and Other hemorrhoids K64.8 [facility] [address] [place] [phone] 01/29/2024 Valente Manzo Lower GI bleed K92.2 ; Diverticulosis of colon with hemorrhage K57.31 and Acute posthemorrhagic anemia D62 [facility] [address] [place] [phone] 05/31/2024 Valente Manzo Diverticulosis of co holly K57.30 ; Chronic GERD K21.9 and Anemia D64.9 Assessments Encounter Date Diagnosis (ICD Code) Assessment Notes Treatment Notes Treatment Clinical Notes Section Notes 12/09/2023 Rectal bleeding (ICD-10 - K62.5) 12/09/2023 Diverticulosis of large intestine without perforation or abscess without bleeding (ICD-10 - K57.30) 01/29/2024 Lower GI bleed (ICD-10 - K92.2) [...] to keep you advised of her progress. 05/31/2024 Diverticulosis of colon (ICD-10 - K57.30) Overall, Ji appears well. She is not having any [...] questions I can be of assistance with. Ji was comfortable with this plan. Thank you again for allowing me to have participated In Ji's care. Please do not hesitate to contact me if I can be of any further assistance in the future. 05/31/2024 Chronic GERD (ICD-10 - K21.9) Continue the Pantoprazole and TUMS for the heartburn Overall, Ji appears well. She is not having any [...] questions I can be of assistance with. Ji was comfortable with this plan. Thank you again for allowing me to have participated In Ji's care. Please do not hesitate to contact me if I can be of any further assistance in the future. 12/09/2023 Other hemorrhoids (ICD-10 - K64.8) 01/29/2024 Acute posthemorrhagic anemia (ICD-10 - D62) [...] to keep you advised of her progress. 05/31/2024 Anemia (ICD-10 - D64.9) Continue the Iron pill three times a week Overall, Ji appears well. She is not having any [...] questions I can be of assistance with. Ji was comfortable with this plan. Thank you again for allowing me to have participated In Ji's care. Please do not hesitate to contact me if I can be of any further assistance in the future. Plan Of Treatment Pending Test Test Name Order Date CBC w DIFF 01/29/2024 Future Test Test Name Order Date COLONOSCOPY 03/11/2022 COLONOSCOPY 11/17/2023 Insurance Providers Payer Name Payer Address Payer Phone Subscriber Number Group Number Insured Name Patient Relationship to Insured Coverage Start Date Coverage End Date MEDICARE OF [place] [address] [place] [address] [id number] ZORANTERRENCE HOFFMANINE Self - patient is the insured [employer] ATT[employer] CLAIMS [address] [place] [address] [id number] JI MEEHAN Self - patient is the insured Medical (General) History Medical History History ICD Code CAD-Dr. Mendoza at [facility] HTN OSTEOARTHITIS Diet-controlled DM OBESITY BURSITIS HERNIATED DISC L3 L4L5 S1 SPINAL STENOSIS SCOLIOSIS NEUROPATHY-CHRONIC PAIN Urinary incontinence Negative colonoscopy in 05/18 002(poor prep) and 08/2002 for evaluation of anemia Negative EGD 05/2002 negativ e except for an inflammatory polyp in the pylorus Denies [place],CVA,Lung disease,renal disease Colonoscopy in 2021 was very limited due to a poor prep, especially in the left colon Gallstones-asymptomatic--patient is awar e-discussed at 12/08 OV Negative colonoscopy in 2023 other than diverticulosis and hemorrhoids Recurrent lower GI bleeding from middle of December to early January,-required 2 units of blood at [facility] Surgical History Surgery Date(Month/Year) Left knee replacement 2014 4V-CABG 2019
--- OUTSIDE RECORDS SUMMARY | 2024-11-22 14:03 | XMS_ITS | Patient Health Record ---
Author Organization [facility] Address [address] [place] [address] Care Team Providers Care Webmethods Consultant Name Role Phone Nhan Simons MD Primary Care Provider Unavailab Dee Dee Parry Unavailable [phone] Arcenio Thayer Unavailable [phone] Cesar Castillo Unavailable [phone] Allergies Allergen (clinical drug ingredient) Drug/Non Drug Allergy documented on EMR Reaction Allergy Type Onset Date Status meperidine Demerol Unknown Drug Allergy Active Adhesive Unknown Allergy Active Results Component Value Reference Range Notes HEMOGLOBIN A1C (GLYCOHEMOGLO BIN) Reviewed date:08/26/2024 06:55:00 AM Interpretation: Performing Lab: Notes/Report: HEMOGLOBIN A1C % (HH) 6.8 HEMOGLOBIN A1C (GLYCOHEMOGLO BIN) Reviewed date:05/18/2024 12:33:37 PM Interpretation: Performing Lab: Notes/Report: TOTAL HEMOGLOBIN (HGBA1C) 6.8 Reason For Referral No Information Medications Medication SIG (Take, Route, Frequency, Duration) Notes Start Date End Date Status Vitamin D3 Active Iron Active Tylenol Active Pantoprazole Sodium 40 MG 1 tablet Orally Once a day for 30 day(s) Active Metoprolol Tartrate 75 MG 1 tablet with food Orally Twice a day for 30 day(s) 75 and 50 mg both Active Loratadine 10 MG 1 tablet Orally Once a day for 30 day(s) Active CeleBREX 200 MG 1 capsule with food Orally twice a day Active Extra Depth Orthopedic Shoes (1 Pair) with Customized Heat Molded Multidensity Innersoles (3 Pair) as directed Dx: NIDDM/Polyneuropathy (E11.42), Hammertoe Foot Deformity (M20.41,M20.42), Preulcerative Skin Lesion(s) (L85.1 11/18/2024 Active Biotin 5000 MCG 1 tablet Orally Once a day for 30 day(s) Active ASA 81 mg Active Glucosamine HCl 1500 MG 1 tablet Orally Once a day for 30 day(s) Not-Taking Allopurinol 300 MG 1 tablet Orally Once a day for 30 day(s) Active Clopidogrel Bisulfate 75 MG 1 tablet Orally Once a day for 30 day(s) Not-Taking amLODIPine Besylate 5 MG 1 tablet Orally Once a day for 30 day(s) Active Zetia 10 MG 1 tablet Orally Once a day Not-Taking Praluent 75 MG/ML as directed Subcutaneous Active Gabapentin 300mg three times a day orally daily Not-Taking Immunizations Vaccine Route Administration Date Status Comme nts COVID-19 Pfizer BioNTech Vaccine Unknown 05/24/2022 Administered 1st 10/01/20 2nd 10/22/20 3rd 03/31/21 Influenza Unknown 05/15/2022 Administered Influenza Unknown 05/18/2023 Administered Social History Tobacco Use: Social History [...] ast year? No Points 0 Interpretation Negative Problems Problem Type SNOMED Code ICD Code Onset Dates Problem Status W/U Status Risk Notes Problem Acquired hammer toe of right foot (9166302396160668 ) Other hammer toe(s) (acquired), right foot (M20.41) Active confirmed Response to treatment, Improvemen t Problem Acquired hammer toe of left foot (6292424605251743 ) Other hammer toe(s) (acquired), left foot (M20.42) Active confirmed Response to treatment, Improvemen t Problem Polyneuropathy due to type 2 diabetes mellitus (288394364) Type 2 diabetes mellitus with diabetic polyneuropathy (E11.42) Active confirmed Vital Signs Blood pressure diastolic 80 mm Hg 11/18/2024 Height 5 ft 5in in 11/18/2024 Blood pressure systolic 150 mm Hg 11/18/2024 Weight 200 lbs 11/18/2024 BMI 33.28 kg/m2 11/18/2024 Procedures Procedure Date Ordered Date Performed Result Body Sit e 22558-QTNMBMZ NAIL, 6 OR MORE 08/25/2024 N/A 19608-PPQS SKIN LESIONS, OVER 4 08/25/2024 N/A 53737-UAGCWYZ NAIL, 6 OR MORE 11/18/2024 N/A 28319-YPCO SKIN LESIONS, OVER 4 11/18/2024 N/A Encounters Encounter Location Date Provider Diagnosis [address] [address] 02/15/2024 Arcenio Thayer Pain in left foot M79.672 [...] dysfunction (PTTD) of right lower extremity M76.[address] [address] 05/18/2024 Arcenio Thayer Pain in left foot [...] dysfunction (PTTD) of right lower extremity M76.[address] [address] 08/25/2024 Dee Dee Burleson Type 2 diabetes mellitus with diabetic polyneuropathy E11.42 ; Tinea unguium B35.1 ; Other hammer toe(s) (acquired), right foot M20.41 and Other hammer toe(s) (acquired), left foot M20.42 [facility] [place] [address] [place] [address] 11/18/2024 Cesar Mauriciounier Type 2 diabetes mellitus with diabetic polyneuropathy E11.42 ; Tinea unguium B35.1 ; Other hammer toe(s) (acquired), right foot M20.41 and Other hammer toe(s) (acquired), left foot M20.42 Assessments Encounter Date Diagnosis (ICD Code) Assessment Notes Treatment Notes Treatment Clinical Notes Section Notes 02/15/2024 Pain in left foot (ICD-10 - M79.672) 05/18/2024 Pain in left foot (ICD-10 - M79.672) 08/25/2024 Type 2 diabetes mellitus with diabetic polyneuropathy (ICD-10 - E11.42) 08/25/2024 Tinea unguium (ICD-10 - B35.1) 11/18/2024 Type 2 diabetes mellitus with diabetic polyneuropathy (ICD-10 - E11.42) 11/18/2024 Tinea unguium (ICD-10 - B35.1) 08/25/2024 Other hammer toe(s) (acquired), right foot (ICD-10 - M20.41) Response to treatment,Impro vement 11/18/2024 Other hammer toe(s) (acquired), right foot (ICD-10 - M20.41) Patient Educated with: DIABETIC FOOT CARE INSTRUCTIONS. pdf (DIABETIC FOOT CARE INSTRUCTIONS. pdf) 02/15/2024 Pain in right foot (ICD-10 - M79.671) 05/18/2024 Pain in right foot (ICD-10 - M79.671) 02/15/2024 Type 2 diabetes mellitus with diabetic polyneuropathy (ICD-10 - E11.42) 11/18/2024 Other hammer toe(s) (acquired), left foot (ICD-10 - M20.42) 05/18/2024 Type 2 diabetes mellitus with diabetic polyneuropathy (ICD-10 - E11.42) 08/25/2024 Other hammer toe(s) (acquired), left foot (ICD-10 - M20.42) Response to treatment,Impro vement 05/18/2024 Primary osteoarthritis, left ankle and foot (ICD-10 - M19.072) 02/15/2024 Primary osteoarthritis, left ankle and foot (ICD-10 - M19.072) 02/15/2024 Metatarsalgia, left foot (ICD-10 - M77.42) 05/18/2024 Metatarsalgia, left foot (ICD-10 - M77.42) 05/18/2024 Sesamoid pain (ICD-10 - M89.9) 02/15/2024 Sesamoid pain (ICD-10 - M89.9) 02/15/2024 Tinea unguium (ICD-10 - B35.1) 05/18/2024 Tinea unguium (ICD-10 - B35.1) 05/18/2024 Pain in right toe(s) (ICD-10 - M79.674) 02/15/2024 Pain in right toe(s) (ICD-10 - M79.674) 02/15/2024 Pain in left toe(s) (ICD-10 - M79.675) 05/18/2024 Pain in left toe(s) (ICD-10 - M79.675) 05/18/2024 Ingrowing nail (ICD-10 - L60.0) 02/15/2024 Ingrowing nail (ICD-10 - L60.0) 02/15/2024 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 (ICD-10 - M76.821) 05/18/2024 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 (ICD-10 - M76.821) Plan Of Treatment Pending Test Test Name Order Date X ray : Foot, left 3V 09/17/2020 87975-DXQWWQO NAIL, 6 OR MORE 08/25/2024 04167-OLOFXHD NAIL, 6 OR MORE 11/18/2024 85478-HQQQ SKIN LESIONS, OVER 4 11/19/19 25 62565-AHAO SKIN LESIONS, OVER 4 08/25/19 25 05230-LMZJ SKIN LESIONS, 2 TO 4 05/23/20 21 54817-DUSP SKIN LESIONS, 2 TO 4 11/08/19 21 12047-HIBH SKIN LESIONS, 2 TO 4 01/17/20 21 39977-AXFM SKIN LESIONS, 2 TO 4 09/04/19 22 O8792-WWYIANCR DYSTROPHIC NAILS ANY # U1249-DYOEOMPW DYSTROPHIC NAILS ANY # R9709-USICMCYX DYSTROPHIC NAILS ANY # Next Appt Details Provider Name:Dee Dee dawkins, 03/02/2025 02:30:00 PM, [address] [facility], [place], [address], Insurance Providers Payer Name Payer Address Payer Phone Subscriber Number Group Number Insured Name Patient Relationship to Insured Coverage Start Date Coverage End Date Medicare [facility] [employer] [address] [place] [address] [id number] Cristy Simmons Self - patient is the insured [employer] [address] [place] [address] [phone] [id number] Cristy Simmons Self - patient is the insured Medical (General) History Medical History History ICD Code Arthritis Back,Hip,and Knee pain Cholesterol type II diabetes Gout- L- TDE post op 04/2020 Heart disease High blood pressure Neuropathy Sciatica chronic sinusitis Measles Mumps Chicken pox Vascular grafts Joint implants/screws Herniated disc L3, L4, L5, cocex covid-19 Anemia Diverticulosis Surgical History Surgery Date(Month/Year) CABG surgery X3 2019 LTKR 2013 colonoscopy Hospitalization History Reason Date(Month/Year) [facility]- rectal hemorrhaging 01/2024 [facility] - Open heart surgery 12/09/2019
--- OUTSIDE RECORDS SUMMARY | 2024-11-22 14:03 | XMS_ITS ---
Author Organization [facility] Address [address] [address] Care Team Providers Care Game Advisor Name Role Phone Ronak YOUNG, Nhan Primary Care Provider Dee Dee Aviles Unavailable [phone] Allergies Allergen (clinical drug ingredient) Drug/Non Drug Allergy documented on EMR Reaction Allergy Type Onset Date Status meperidine Demerol Unknown Drug Allergy Active Adhesive Unknown Allergy Active REASON FOR VISIT At Risk Footcare, Toe Irritation Medications Medication SIG (Take, Route, Frequency, Duration) Notes Start Date End Date Status Glucosamine HCl 1500 MG 1 tablet Orally Once a day for 30 day(s) Not-Taking Extra Depth Diabetic Shoes with 3 Pair Custom heat-molded multi-density innersoles for 1 year Dx: 09/17/2020 Not-Taking Iron Active Praluent 75 MG/ML as directed Subcutaneous Active Extra Depth Diabetic Shoes with 3 Pair Custom heat-molded multi-density innersoles for 1 year Dx: Active Zetia 10 MG 1 tablet Orally Once a day Not-Taking Clopidogrel Bisulfate 75 MG 1 tablet Orally Once a day for 30 day(s) Not-Taking Vitamin D3 Active Gabapentin 300mg three times a day orally daily Not-Taking Tylenol Active Metoprolol Tartrate 75 MG 1 tablet with food Orally Twice a day for 30 day(s) 75 and 50 mg both Active CeleBREX 200 MG 1 capsule with food Orally twice a day Active Loratadine 10 MG 1 tablet Orally Once a day for 30 day(s) Active Biotin 5000 MCG 1 tablet Orally Once a day for 30 day(s) Active Pantoprazole Sodium 40 MG 1 tablet Orally Once a day for 30 day(s) Active ASA 81 mg Active amLODIPine Besylate 5 MG 1 tablet Orally Once a day for 30 day(s) Active Allopurinol 300 MG 1 tablet Orally Once a day for 30 day(s) Active Social History Tobacco Use: Social History [...] Are you an other tobacco user? No Problems Problem Type SNOMED Code ICD Code Onset Dates Problem Status W/U Status Risk Notes Problem Acquired hammer toe of right foot (035399591771 9105) Other hammer toe(s) (acquired), right foot (M20.41) Active confirmed Response to treatment,Im provement Problem Acquired hammer toe of left foot (968838399788 9103) Other hammer toe(s) (acquired), left foot (M20.42) Active confirmed Response to treatment,Im provement Vital Signs Height 5 ft 5in in 08/25/2024 Weight 200 lbs 08/25/2024 BMI 33.28 kg/m2 08/25/2024 Blood pressure systolic 150 mm Hg 08/25/19 25 Blood pressure diastolic 70 mm Hg 025 Procedures Procedure Date Ordered Date Performed Result Body Sit e 99552-PUMMCSN NAIL, 6 OR MORE 08/25/2024 N/A 52508-GDYK SKIN LESIONS, OVER 4 08/25/2024 N/A Encounters Encounter Location Date Provider Diagnosis [facility] [address] [address] 08/25/2024 Dee Dee Burleson Type 2 diabetes mellitus with diabetic polyneuropathy E11.42 ; Tinea unguium B35.1 ; Other hammer toe(s) (acquired), right foot M20.41 and Other hammer toe(s) (acquired), left foot M20.42 Assessments Encounter Date Diagnosis (ICD Code) Assessment Notes Treatment Notes Treatment Clinical Notes Section Notes 08/25/2024 Type 2 diabetes mellitus with diabetic polyneuropathy (ICD-10 - E11.42) 08/25/2024 Tinea unguium (ICD-10 - B35.1) 08/25/2024 Other hammer toe(s) (acquired), right foot (ICD-10 - M20.41) Response to treatment,Impro vement 08/25/2024 Other hammer toe(s) (acquired), left foot (ICD-10 - M20.42) Response to treatment,Impro vement Plan Of Treatment Pending Test Test Name Order Date 57178-BZVRGGB NAIL, 6 OR MORE 08/25/2024 03595-DOND SKIN LESIONS, OVER 4 08/25/19 Next Appt Details Follow Up: 3 Months, Reason: Provider Name:Dee Dee dawkins, 03/02/2025 02:30:00 PM, [address] [place] [address], [address], Procedure Notes * Category Sub-Category Detail Notes Debride Nail 6-10 Nail debridement Due to the cl inical pathology outlined in the exam findings, performance of this nail treatment is medically necessary as its management by an unskilled/untrained nonprofessional would put this patients foot and overall health at risk. Therefore, debridement to affected nail(s), as described in exam ( TA, T1, T2, T3, T4,T6, T7, T8, T9, ), was performed exclusively by the physician of record to reduce/remove overall nail length, girth, thickness, subungual debris, and necrotic tissue, by manual and/or electrical means through the use of a nail nipper and/or dremel-type pulp grinder and blender, to a more viable healthy nail plate [...] to maintain effectiveness in symptomatic relief - 76092 Keratoma Treatment Parring or Cutting o f Benign Hyperkeratotic Lesion(s) (-57) More than 4 Lesions - Due to the at risk nature of the patients medical condition as documented in the exam findings, performance of this keratoderma treatment is medically necessary as its management by an unskilled/untrained nonprofessional would put this patients foot and overall health at risk. Therefore, the benign hyperkeratotic lesions, ( 5) in total, locations as stated and described in the exam ( sub MTH 1 B/l, plantar heels B/L, medial IPJ T5 ), were pared, and/or cut utilizing a sterile 15 blade, tissue nippers, and/or power dremel instrumentation by the physician of record - 82023 Progress Notes * Cristy SIMMONS MDOB:[birth year] (78 yo F)Acc No.[id number]:08/25/2024 Progress Note Patient:?Cristy SIMMONS Provider:?Dee Dee Burleson DPM :1945???Age:78 Y???Sex:Female D ate:08/25/2024 Address:[address] [place], [place] [id number] Pcp:Nhan Simons MD Subjective: * Chief Complaints: * ???At Risk FootcareToe Irrit ation * HPI: ???At Risk footcare:?Pt States Last PCP Visit:?Date?04/27/2024 ???Toe pain:?Treatments:?Rx shoes .? * ROS:?General/Constitutional:?Nausea?denies.?Vomiting?denies.?Hunger Thirst?denies.?Loss appetite?denies.?Chills?denies.?Fatigue?denies.?Fever?denies.?Night Sweats?denies.?Unexplained weight loss?denies.?Unexplained weight gain?denies.?HEENTM:?Dentures?denies.?Dizziness?denies.?Glasses/contacts?admits.?Retinopathy?de nies.?Blurred/double vision?denies.?TMJ?denies.?Discharge/drainage?denies.?Implants?denies.?Sore throat?denies.?Dental implants?denies.?Hard of hearing ?denies.?Difficulty chewing/swallowing/speaking?denies.?Nose bleeds?denies.?Sore mouth?denies.?Respiratory:?On Oxygen?denies.?Pneumonia/pleurisy?denies.?Bronchitis?denies.?Emphysema?denies.?C oughing?denies.?Cough blood?denies.?Shortness of breath?denies.?Wheezing?denies.?Cardiovascular:?Pacemaker?denies.?MVP?denies.?WPW?denies.?CHF?denies.?Heart attack?denies.?Septal defect?denies.?Rapid beat?denies.?Chest pain ?denies.?Atrial Fib.?denies.?Murmur/Palpitations?denies.?Gastrointestinal:?Hemorrhoids?denies.?Stomach/Abdominal pain?denies.?Dark blood stool?denies.?Irritable bowel ?denies.?Constipation?denies.?Diarrhea?denies.?Hematology:?Swelling?denies.?Clots?denies.?Varicose Veins?denies.?Bruising?denies.?Bleeding problem?denies.?Genitourinary:?Blood urine?denies.?Frequent/Painfu/urination/bladder control?denies.?Kidney stones?denies.?Infection (UTI)?denies.?Nephropathy?admits.?sex trans dis (STD)?denies.?Prostate?denies.?Musculoskeletal:?Hammertoes?denies.?Bunions?denies.?Back Pain?denies.?Muscle Cramps/ Resting?denies.?Muscle cramps / walking?denies.?Generalized aches and pains?admits.?Weakness?denies.?Integ.:?[place]?denies.?Scars?denies.?Corns/calluses?admits.?Ingrown nails?denies.?Painful nails?denies.?Open Sores?denies.?Rashes?denies.?Neurologic:?Difficulty sleeping?denies.?Brain disorder?denies.?Numbness?admits.?Balance trouble?denies.?Confusion?denies.?Fainting/blackouts?denies.?Tingling?admits.?Tr emors?denies.? * Medical History:? * Surgical History:?CABG surge [...] 5in, Wt:200 , BMI: 33.28, Shoe size:9.5, BP:150/70mm Hg, BS:160, Ht-cm: 165.1 cm, Wt-k.72 kg. * Examination: ???Ophthalmology Referral: ?DIABETES EYE EXAM?Procedure Performed:?No ?Findings of Diabetic Eye Exam:?no retinopathy?Neurological: ?SENSORY:? [...] ?SKIN FINDINGS:?Skin exam reveals Keratotic lesion(s) located at sub MTH 1 B/l, plantar heels B/L, medial IPJ T5.?Vascular: ?DP PULSES (B):?1/4, B/L.?PT PULSES (B):? 1/4, B/L.?CAPILLARY FILL TIME:?3 secs. per digit, B/L.?TROPHIC CONDITION-TEXTURE/ELASTICITY/TURGOR/HAIR GROWTH (B):?normal, B/L.?TEMPERTURE GRADIENT (C):?warm to cool, proximal to distal, B/L.?PIGMENTATION:?normal, B/L.?EDEMA (C):?no edema.?TELANGECTASIA:?absent.?VARICOSITIES:?absent.?Orthopedic: ?MUSCLE STRENGTH:?5/5 all groups in a symmetrical fashion, B/L.?FOOTWEAR:?good condition, exhibit proper fit and accommodation for pedal deformities. OT were inspected and noted to be worn, but in good condition giving proper support at the present time.?General Examination: ?GENERAL APPEARANCE:?Reveals a pleasant, alert, well nourished, well- developed, well hydrated individual, who demonstrates proper attention to hygiene/body habitus, and is in no acute distress, Pt serves as own historian for office visit today.?ORIENTED:?person, place, and time.?Footwear Evaluation?Footwear Evaluation performed:?Yes??? Assessment: * Assessment: 1.?Type 2 diabetes mellitus with diabetic polyneuropathy - E11.42 (Primary)???2.?Tinea unguium - B35.1???3.?Other hammer toe(s) (acquired), right foot - M20.41???Specify :Chronic problem, Stable (1=3,2=4)???Notes :Response to treatment,Improvement???4.?Other hammer toe(s) (acquired), left foot - M20.42???Specify :Chronic problem, Stable (1=3,2=4)???Notes :Response to treatment,Improvement??? Plan: * Treatment: * Procedures:?Debride Nail 6-10:?Nail debridement?Due to the clinical pathology outlined in the exam findings, performance of this nail treatment is medically necessary as its management by an unskilled/untrained nonprofessional would put this patients foot and overall health at risk. Therefore, debridement to affected nail(s), as described in exam (? TA, T1, T2, T3, T4,T6, T7, T8, T9, ), was performed exclusively by the physician of record to reduce/remove overall nail length, girth, thickness, subungual debris, and necrotic tissue, by manual and/or electrical means through the use of a nail nipper and/or dremel-type pulp grinder and blender, to a more viable healthy nail plate [...] to maintain effectiveness in symptomatic relief - 31217.?Keratoma Treatment:?Parring or Cutting of Benign Hyperkeratotic Lesion(s)?(-57) More than 4 Lesions - Due to the at risk nature of the patients medical condition as documented in the exam findings, performance of this keratoderma treatment is medically necessary as its management by an unskilled/untrained nonprofessional would put this patients foot and overall health at risk. Therefore, the benign hyperkeratotic lesions, ( 5) in total, locations as stated and described in the exam (?sub MTH 1 B/l, plantar heels B/L, medial IPJ T5 ), were pared, and/or cut utilizing a sterile 15 blade, tissue nippers, and/or power dremel instrumentation by the physician of record - 25996.? * Procedure Codes:?39247 DEBRI DE NAIL, 6 OR MORE, Modifiers: XS 54034 TRIM SKIN LESIONS, OVER 4, Modifiers: XS * Preventive Medicine:? ??Counseling:?Discussion:?-13: Office or other outpatient visit for the evaluation and management of an established patient, which required a medically appropriate history and/or examination and LOW level of DECISION MAKING for: 1 STABLE ACUTE UNCOMPLICATED PROBLEM, 2 OR MORE MINOR PROBLEMS, OR 1 STABLE CHRONIC PROBLEM, THAT POSE(S) A LOW RISK FOR MORBIDITY/MORTALITY. The visit on the day of the [...] have encouraged the patient to call the office.?Shoe Gear Counseling:?A thorough inspection of the patients Rxed shoegear and inserts was performed and findings communicated. We reviewed the many important medical advantages for adhering to regularly wearing these shoe and insert accomidative devices daily as well as reviewed the fact that a failure in accepting these recommedations may be deleterious, unable to prevent, and disadvantagely result in, many pedal complications such as skin irritation, skin ulceration, infection, and even loss of toe/foot/leg/or even their life. Time was also spent reviewing the proper footcare techniques including daily skin moisturization, daily foot inspection for any interruption in skin integrity, open lesions, or sign of infection such as redness/malodor/drainage/swelling as well as daily shoe inspection for the presence of internal foreign bodies and shoe as well as insert wear. Patient questions re: shoes, inserts, and self foot inspections were answered to their satisfaction as the patient verbally confirmed a full understanding of the above information.? ??Screening/Special Tests:?Fall Risk?Screening:?No falls in the past year ?FALLS: Screening for Future Fall Risk?Have you had any falls with injury in the past year??No * Follow Up:?3 Months * Images: * Sign off status: Completed true * Provider:?Dee Dee Burleson DPM Date:?0 08/25/2024 Generated for Gabriel hernandez/Elsie/Rosa Iselasmitting on:?11/22/2024 02:03 PM EDT History and Physical Notes * HPI (History of Present Illness) Category Sub-Category Detail Notes Category Not es Toe pain Treatments: Rx shoes At Risk footcare Pt States Last PCP Visit: Date: 4 Examination Category Sub-Category Detail Notes Category Not es Neurological SENSORY: Neurological exa m demonstrates, reduced light touch sensation, reduced sharp/dull pin prick discrimination , B/L, 5.07 monofilament test performed at plantar aspects of 5 varied sites per foot shows sensation, reduced , B/L Dermatologic SKIN FINDINGS: Skin exam reveal s Keratotic lesion(s) located at sub MTH 1 B/l, plantar heels B/L, medial IPJ T5 Orthopedic FOOTWEAR EVALUATION: good condit ion, exhibit proper fit and accommodation for pedal deformities. OT were inspected and noted to be worn, but in good condition giving proper support at the present time MUSCLE STRENGTH: 5/5 all groups in a symmetrical fashion, B/L General Examination GENERAL APPEARANCE: Reveals a pleasant, alert, well nourished, well-developed, well hydrated individual, who demonstrates proper attention to hygiene/body habitus, and is in no acute distress, Pt serves as own historian for office visit today ORIENTED: person, place, and t yunior Footwear Evaluation Footwear Evaluation performe d:: Yes Ophthalmology Referral DIABETES EYE EXAM Procedure Perform ed:: No Findings of Diabetic Eye Exam:: no retin [...]
[2024-11-22 14:28] LABS: Alanine Aminotransferase 15 U/L (0-31); Anion Gap 14 (12-20); Aspartate Amino Transferase 24 U/L (5-31); Blood Urea Nitrogen 23 mg/dL (9-16); Carbon Dioxide 27 mmol/L (22-29); Chloride 104 mmol/L (96-108); Cholesterol 291 mg/dL (<200); Estimated Glomerular Filt Rate 38; Glucose Fasting 176 mg/dL (60-99); HDL Cholesterol 32 mg/dL (>40); Iron 83 mcg/dL (30-160); Percent Iron Saturation 28 % (15-50); Potassium 4.6 mmol/L (3.3-5.1); Sodium 140 mmol/L (135-145); Total Iron Binding Capacity 299 mcg/dL (228-428); Triglycerides 457 mg/dL (<150); Unsaturated Iron Binding 216 ug/dL
== END 2024-11-22 11:26 | disposition home or self-care (01) ==
LOC: HO.10HDL 11:25
PROVIDERS: Visit Provider Family Medicine
DX: I10 Essential (primary) hypertension (principal); E11.9 Type 2 diabetes mellitus without complications; E78.00 Pure hypercholesterolemia, unspecified; D50.9 Iron deficiency anemia, unspecified; Z79.899 Other long term (current) drug therapy
CPT/HCPCS: 36415; 80051; 80061; 82550; 82565; 82947; 83036; 83540; 84450; 84460; 84520; 85025

== ENCOUNTER 2024-12-13 15:14 | Outpatient (AMB) | payer MEDICARE, SELFPAY ==
--- NOTE | 2024-12-13 15:15 | MHC.OFFVIS ---
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: No Allergies hydromorphone [Dilaudid] Allergy (Unknown, Verified 10/08/22 14:06) Anaphylaxis meperidine [Demerol] Allergy (Unknown, Verified 10/08/22 14:06) Anaphylaxis empagliflozin [From Jardiance] Adverse Reaction (Verified 10/08/22 14:06) High Sugars, felt loggy Pudfqtl-HKA-PoI Reductase Inhibitor Adverse Reaction (Verified 10/08/22 14:06) Muscle Pain Medication List - Last Reconciled 12/13/24 by Mono Juares NP acetaminophen 650 mg PO Q6H PRN allopurinol 300 mg PO DAILY amlodipine 10 mg PO BEDTIME aspirin 81 mg PO DAILY biotin 1 mg PO DAILY celecoxib 200 mg PO BID cholecalciferol (vitamin D3) (Vitamin D3) 25 mcg PO DAILY loratadine 10 mg PO DAILY magnesium oxide 400 mg PO DAILY meclizine 25 mg PO TID PRN metoprolol tartrate mg PO metoprolol tartrate 75 mg PO BID pantoprazole 40 mg PO QPM HPI Comments Details: This is a 78-year-old female patient presenting for an overdue follow-up visit. Patient with medical history including hypertension, hyperlipidemia, diabetes, obesity, and coronary artery disease status post coronary artery bypass graft surgery in 2019. Over the past 6 months, patient reports increasing fatigue, shortness of breath, and intermittent chest discomfort which she describes as a funny feeling R-waves across her chest. 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 She has not had any emergency room visits for these symptoms but notes that they are becoming more frequent. She denies any associated symptoms such as dizziness, palpitations, orthopnea, PND, leg edema, presyncope, or syncope. Patient also reports discontinuation of Praluent approximately 6 months after initiating it due to cost, but states she remains adherence to all her other medications. [facility] Medical History Gallstone Urinary incontinence Osteoarthritis HTN (hypertension) CAD (coronary artery disease) Gout On beta padmini at home Lumbar herniated disc Scoliosis Chronic pain Neuropathy Spinal stenosis Nonrheumatic aortic (valve) stenosis Mixed hyperlipidemia Type 2 diabetes mellitus with unspecified complications Essential hypertension Atherosclerotic cardiovascular disease Surgical History History of quadruple bypass History of esophagogastroduodenoscopy (EGD) Hx of colonoscopy History of left knee replacement Family History Father No problems noted. Mother Diabetes Hypertension Social History Are you a primary associate director career services to a significant other at home: No Do you presently have visiting nurse or other home services: No Alcohol intake: former Patient Tobacco Use Status: Never used Tobacco Review of Systems ENT Reports dizziness Card Denies chest pain, Denies chest pain at rest, Denies chest pain with activity, Denies rapid heart rate, Denies pedal edema, Denies edema, Denies leg edema, Denies lightheadedness, Denies palpitations, Denies dyspnea, Denies dyspnea on exertion and Denies orthopnea Resp Denies cough, Denies dyspnea and Denies dyspnea on exertion GI Denies hematochezia and Denies change in stool character Musc Denies abnormal gait, Reports limited range of motion, Reports muscle cramps, Denies muscle weakness, Denies numbness, Denies radiating pain into limb, Denies stiffness and Denies tingling Neuro Denies abnormal gait, Reports dizziness, Denies numbness and Denies tingling Endo Denies palpitations Physical Exam Vital Signs: Last Vital Signs Pulse 64 12/13/24 15:16 BP 124/62 12/13/24 15:16 BMI result Body Mass Index 33.3 Const General: cooperative, healthy appearing, comfortable and no acute distress Orientation/consciousness: patient oriented x3 HEENT Head: Yes normal to inspection Neck Neck: Yes normal visual inspection, Yes trachea midline and Yes supple Chest Chest palpation & inspection: normal inspection of the chest Resp Effort & Inspection: normal respiratory effort Auscultation: clear to auscultation bilaterally, no crackles, no rales, no rhonchi and no wheezes Cardio Jugular venous distension: no JVD Palpation: normal PMI Rate: regular rate Rhythm: regular rhythm Heart sounds: S1 normal heart sound present, S2 normal heart sound present, no click, no gallops, no murmurs and no rubs Peripheral pulses: Peripheral pulses 2+ throughout GI Inspection: Yes normal to inspection Palpation (GI): Soft to palpation Auscultation: normal bowel sounds Skin General skin exam: no rashes or lesions noted Neuro General: patient oriented x3 Extrem General: Yes normal to inspection, No no pedal edema and No calf tenderness Psych Appearance: grossly normal Mental Status: mental status grossly normal Speech and movement: Normal speech and movement present Office Procedures EKG Details: EKG today showed normal sinus rhythm, rate 64 beats per minute, low-voltage QRS, nonspecific ST- T wave, can not rule out anteroseptal infarct, [place], [place] [id number], Complete Assessment & Plan Assessment & Plan (1) Atherosclerotic cardiovascular disease: Code(s): I25.10 - Atherosclerotic heart disease of kaw coronary artery without angina pectoris Category: Medical Plan: 09/05/2022-echo study showed normal LVEF with impaired relaxation filling pattern and regional wall motion abnormality suggesting underlying coronary artery disease, mildly dilated left atrium, mildly dilated right ventricle with low normal RV systolic function, and mild aortic stenosis. We will update this echocardiogram. 09/12/2022-patient underwent myocardial perfusion imaging study with Lexiscan that showed ischemia or infarct pattern in the basal to mid lateral wall consistent with her old infarct. Patient's symptoms with typical as well as atypical features of chest discomfort with shortness of breath. Given her multiple risk factors, we will repeat a myocardial perfusion study with Lexiscan. Patient uses a cane to walk and therefore will not be able to use a treadmill. (2) Mixed hyperlipidemia: Code(s): E78.2 - Mixed hyperlipidemia Category: Medical Plan: Patient has been intolerant of statins in the past and therefore was started on a Praluent therapy. Her LDL improved to within goal however patient could not continue with this medication due to its cost. We will try to do another PA with the hope of lesser co-pay for the patient. Her current lipid panel is very elevated and therefore absolutely needs PCSK9 inhibitor therapy. Patient verbalizes understanding. We will repeat lipid panel in 3 months' time. Ideally, patient's LDL goal should be less than 70. (3) Shortness of breath: Code(s): R06.02 - Shortness of breath Category: Medical Plan: As above. (4) Status post coronary artery bypass graft: Code(s): Z95.1 - Presence of aortocoronary bypass graft Category: Medical Plan: As above. (5) Essential hypertension: Code(s): I10 - Essential (primary) hypertension Category: Medical Plan: Blood pressure today within control. Continue current regimen. Advised checking blood pressures at home with a goal of blood pressure less than 130/80. (6) Type 2 diabetes mellitus with unspecified complications: Code(s): E11.8 - Type 2 diabetes mellitus with unspecified complications Category: Medical Plan: Continue management with diet. Not on any medications at this time. Most recent A1c at 6.6% with an goal of less than 7%. (7) Nonrheumatic aortic (valve) stenosis: Code(s): I35.0 - Nonrheumatic aortic (valve) stenosis Category: Medical Plan: We will repeat echo. Advised heart healthy diet, regular exercise as tolerated, losing weight, med compliance, and aggressive management of vascular risk factors. Advised patient to seek ER care in case of exertional chest pain not resolved with rest. We will follow up with the patient after completion of test. In the interim, patient will call the office with any concerns or change in symptoms. This note was generated using voice recognition software. While every effort has been made to ensure accuracy and proper tuckpointer cleaner caulker, there may be occasional errors that could affect the content or meaning of the described symptoms. Orders: Orders CA echo transthoracic complete Today R06.02 - Shortness of breath NM cardiolite stress test Today R06.02 - Shortness of breath AMB EKG-In Office Today Z95.1 - Presence of aortocoronary bypass graft CA lexiscan stress w julieta Today R06.02 - Shortness of breath Lipid Panel 3 Months E78.2 - Mixed hyperlipidemia Medications: New alirocumab 75 mg subcut Q2W 2 mL 5RF Coding Level of Care Code Est Pt Level 4 (39534) Complex EM visit Add On G2211 Diagnoses Atherosclerotic cardiovascular disease I25.10 Mixed hyperlipidemia E78.2 Shortness of breath R06.02 Status post coronary artery bypass graft Z95.1 Essential hypertension I10 Type 2 diabetes mellitus with unspecified complications E11.8 Nonrheumatic aortic (valve) stenosis I35.0 CPT Codes EKG - CPT: 94880-[id number], Complete ([id number]) Time Spent (min) 38 Comment Time spent in reviewing the chart, test results, assessment, counseling and documentation.
[2024-12-13 15:16] VITALS: BP 124/62; PULSE 64; BMI 33.3
== END 2024-12-13 16:00 | disposition home or self-care (01) ==
LOC: HO.HCS 15:14
PROVIDERS: PCP Family Medicine
DX: I25.10 Atherosclerotic heart disease of native coronary artery without angina pectoris (principal); E78.2 Mixed hyperlipidemia; R06.02 Shortness of breath; Z95.1 Presence of aortocoronary bypass graft; I10 Essential (primary) hypertension; E11.8 Type 2 diabetes mellitus with unspecified complications; I35.0 Nonrheumatic aortic (valve) stenosis
CPT/HCPCS: 93010; 99214; G2211

== ENCOUNTER → 2024-12-13 15:14 | Outpatient (BNVA) | payer MEDICARE, SELFPAY | PROVIDERS: PCP Family Medicine | DX: I25.10 Atherosclerotic heart disease of native coronary artery without angina pectoris (principal); I10 Essential (primary) hypertension; I35.0 Nonrheumatic aortic (valve) stenosis; R06.02 Shortness of breath; E78.2 Mixed hyperlipidemia; E11.8 Type 2 diabetes mellitus with unspecified complications; Z95.1 Presence of aortocoronary bypass graft | CPT/HCPCS: 93005; 99212 ==

== ENCOUNTER → 2025-01-12 12:44 | Outpatient (REF) | payer MEDICARE, SELFPAY ==
--- OUTSIDE RECORDS SUMMARY | 2025-01-12 12:46 | XMS_ITS ---
Author Organization [facility] Address [address] [place] [id number] Care Team Providers Care Supervisor Ditching Name Role Phone Ronak YOUNG, Nhan Primary Care Provider Valente Cruz [phone] Allergies Allergen (clinical drug ingredient) Drug/Non Drug [...] Status Risk Notes Problem Diverticulosis o f colon with hemorrhage (K57.31) Active confirmed Problem Acute posthemorrhagic anemia ([id number]) Acute posthemorrhagic anemia (D62) Active confirmed Vital Signs Blood pressure systolic 00 mm Hg 01/29/20 24 Blood pressure diastolic 00 mm Hg 024 Height 65 in 01/29/2024 Weight 199 lbs 01/29/2024 BMI 33.11 kg/m2 01/29/2024 Encounters Encounter Location Date Provider Diagnosis [facility] [address] [place] [address] 01/29/2024 Valente Manzo Lower GI bleed K92.2 ; Diverticulosis of colon with hemorrhage K57.31 and Acute posthemorrhagic anemia D62 Assessments Encounter Date Diagnosis (ICD Code) Assessment Notes Treatment Notes Treatment Clinical Notes Section Notes 01/29/2024 Lower GI bleed (ICD-10 - K92.2) Continue Iron pills at least once a day Minimize Celebrex Call if bleeding recurs Given Cristy's recent clinical history and recent colonoscopy this [...] suspect it is from the sigmoid diverticulosis. Cristy was comfortable with this plan. Thank you again for allowing me to participate in Cristy's care. I shall continue to keep you advised of her progress. 01/29/2024 Diverticulosis of colon with hemorrhage (ICD-10 - K57.31) Given Cristy's recent clinical history and recent colonoscopy this [...] suspect it is from the sigmoid diverticulosis. Cristy was comfortable with this plan. Thank you again for allowing me to participate in Cristy's care. I shall continue to keep you advised of her progress. 01/29/2024 Acute posthemorrhagic anemia (ICD-10 - D62) Given Cristy's recent clinical history and recent colonoscopy this [...] suspect it is from the sigmoid diverticulosis. Cristy was comfortable with this plan. Thank you again for allowing me to participate in Cristy's care. I shall continue to keep you [...] Up: 4 Months, Reason: Progress Notes * CRISTY MEEHAN MDOB:[birth year] (78 yo F)Acc No.[id number]:01/29/2024 Progress Notes Patient:?CRISTY MEEHAN Provider:?Valente Manzo MD :1945???Age:78 Y???Sex:Female D ate:01/29/2024 Address: [address] [place], [place] [id number] Pcp:Nhan Simons MD Subjective: * Chief Complaints: * ???Er visit follow up * HPI: ???incontinence:? I saw Cristy in the office today for evaluation of recent recurrent lower GI bleeding and anemia. ?I last saw Cristy in early November at which time she [...] found to be anemic. She went to [facility] ER where her hemoglobin was 7.8. She [...] use any other NSAIDs. ?Other labs from [facility] included a BUN of 27, creatinine 1.2, iron of 44, iron saturation 11%, and a normal B12 and folate level. * ROS:?General/Constitutional:?Change in appetite?denies.?Chills?denies.?Fatigue?denies.?Ophthalmologic:?Comments?all negative.?ENT:?Comments?all negative.?Respiratory:?hemoptysis?denies.?Cough?denies.?Cardiovascular:?Chest pain?denies.?Orthopnea?denies.?Gastrointestinal:?Comments?See HPI for details.?Genitourinary:?Hematuria?denies.?Dysuria?denies.?Musculoskeletal:?Painful joints?denies.?Weakness?denies.?Skin:?Itching?denies.?Rash?denies.?Neurologic:?Headache?denies.?Seizures?denies.?Psychiatric:?Comments?all negative.? * Medical History:? * Surgical History:?Left knee replacement [id number] 2019 * Hospitalization/Major Diagno stic Procedure:?No Hospitalization [...] * Allergies:?Melissa s[Allergies Verified] Objective: * Vitals:?Wt: 199 lbs, [...] - K57.31?3.?Acute posthemorrhagic anemia - D62? Given Cristy's recent cli nical history and recent colonoscopy [...] suspect it is from the sigmoid diverticulosis. Cristy was comfortable with this plan. Thank you again for allowing me to participate in Cristy's care. I shall continue to keep you advised of her progress. Plan: * Treatment: 2.?Diverticulosis of colon w ith hemorrhage?LAB: CBC w DIFF 3.?Acute posthemorrhagic ane charly?LAB: CBC w DIFF 4.?Others? Continue Pantoprazole Sodium Tablet Delayed Release, 40 MG, TAKE 1 TABLET BY MOUTH ONCE A DAY AT 5PM, Oral.?? * Procedure Codes:?1036F TOBAC CO NON-[id number] BP SCR NOT PRFRM REC REASON NOS * Preventive Medicine:? ??Counseling:?Care goal follow-up plan:?Above Normal BMI Follow-up?Giving encouragement to exercise,?BMI management provided?Yes.? ??Urinary Incontinence:?Urinary Incontinence?Assessment:?Present,?Plan of care documented:?Yes,?Type of plan of care:?Lifestyle interventions.? * Follow Up:?4 Months * * Sign off status: Completed true * Provider:?Valente Manzo MD Date:? 024 Generated for Gabriel hernandez/Elsie/Kamron on:?01/12/2025 12:46 PM EDT History and Physical Notes * HPI (History of Present Illness) Category Sub-Category Detail Notes Category Not es incontinence I saw Cristy in the office today for evaluation of recent recurrent lower GI bleeding and anemia. I last saw Cristy in early November at which time she [...] found to be anemic. She went to [facility] ER where her hemoglobin was 7.8. She [...] use any other NSAIDs. Other labs from [facility] included a BUN of 27, creatinine 1.2, [...]
--- NOTE | 2025-01-12 12:48 | CA_ITS ---
Transthoracic Echocardiogram Patient (Last, First, Middle): Cristy Simmons M Gender: Female Date of : 1945 Age: 79 Procedure Date: 01/12/2025 Procedure Type: Transthoracic Echocardiogram Location: OP Height: 165. cm Weight: 90.72 kg BSA: 1.98 m2 Heart Rate: 59 bpm BP: 135 / 60 mmHg Tank Truck Milk Receiver: KELLY Peraza MD: Mono Juares NP Cigar Packer And Sorter: Fan Herrera MD Symptoms: R06.02 - Shortness of breath Study Quality: Fair ECG Rhythm: Sinus Conclusions: - 1. Normal LV ejection fraction 55-60% with elevated filling pressures 2. Mild aortic stenosis 3. Normal RV systolic pressure 4. No gross pericardial effusion Findings Left Ventricle Normal left ventricular size, thickness, and systolic function. The visually estimated ejection fraction is between 55-60%. Spectral Doppler is indicative of an impaired relaxation filling pattern. Elevated filling pressures. E/E prime ratio is >15, consistent with elevated filling pressures. Wall Motion Rest Echo Findings The basal inferior and basal inferoseptal segments are hypokinetic. Right Ventricle The right ventricle was not well visualized. Atria The left atrium is likely dilated. The right atrium is normal in size. Aortic Valve There is moderate calcification of the aortic valve. There is mild aortic valve stenosis. There is no aortic valve regurgitation. Mitral Valve There is mild anterior and moderate posterior mitral leaflet thickening. There is moderate mitral annular calcification. There is trace mitral valve regurgitation. There is no mitral valve stenosis. Pulmonic Valve The pulmonic valve was not well visualized. Tricuspid Valve Likely normal tricuspid valve structure and function. There is trace tricuspid valve regurgitation. The right ventricular systolic pressure is normal. The right ventricular systolic pressure is 11 mmHg. Normal right atrial pressure. Great Vessels The pulmonary artery was not well visualized. There is no dilatation of the ascending aorta measuring 3.40 cm. Venous The inferior vena cava is normal in size and collapses greater than 50% with inspiration. Pericardium/Pleural There is no evidence of pericardial effusion. Prior Study Comparison No significant change compared to prior study dated: 09/05/2022. Measurements 2D Linear Measurements IVSd: 0.87 0.6-0.9/0.6-1.0 cm LVIDd: 5.25 3.9-5.3/4.2-5.9 cm LVIDd Index: 2.65 2.4-3.2/2.2-3.1 cm/m2 LVIDs: 3.70 2.0-3.6 cm LVPWd: 0.93 0.7-1.1 cm LA Diam: 5.20 2.7-3.8/3.0-4.0 cm LAIDs Index: 2.63 1.5-2.3 cm/m2 LV Mass: 213.62 67-162/88-224 g LV Mass Index: 107.89 43-95/49-115 g/m2 LVOT Diam: 2.20 3.0+(-)1.3 cm 2D Systolic Function EF 4C: 55.90 >55% EF 2C: 53.90 >55% EF BiP: 56.30 >55% Mitral Valve MV Pk E: 0.76 MV PK A: 0.94 MV Decel Time: 247.00 E/A: 0.80 E'Lateral: 6.64 E'Medial: 4.03 E/E' Med: 18.90 E/E' Lat: 11.50 PHT: 72.00 MVA PHT: 3.06 Decel Mathews: 3.09 Aortic Valve AoV Pk Mau: 1.79 AoV Mn Mau: 1.32 AoV VTI: 0.50 AoV Pk Grad: 13.00 Aov Mn Grad: 8.00 JEAN-PIERRE Cont.VTI: 1.69 LVOT LVOT Pk Mau: 0.77 LVOT Mn Mau: 0.60 LVOT VTI: 0.22 LVOT Pk Grad: 2.00 LVOT Mn Grad: 2.00 LVOT Diam: 2.20 LVOT Area: 3.80 Diastolic Function MV Pk E: 0.76 MV Pk A: 0.94 E/A: 0.80 E'Medial: 4.03 E/E' Med: 18.90 E' Laterial: 6.64 E/E' Lat: 11.50 Right Ventricle TAPSE (mm): 16.10 TVS' Mau: 8.16 Tricuspid Valve TR Pk Mau: 1.45 TR Pk Grad: 8.00 RA Press: 3.00 RVSP: 11.00 Great Vessels Aorta Sinus of Valsalva: 3.10 2.0-3.5 cm Ao Asc: 3.40 2.1-3.4 cm Ao Arch: 3.10 Pulmonary Valve PV Pk Mau: 0.81 Peak PV Grad: 3.00 Updated in Other Vendor System with Status of Final Fan Herrera MD electronically signed on 01/12/2025 3:20:57 PM with status of Final
== END ==
LOC: HO.CARD 12:44
DX: R06.02 Shortness of breath (principal)
CPT/HCPCS: 93306

== ENCOUNTER → 2025-01-12 12:48 | Outpatient (BNV) | payer MEDICARE, SELFPAY | PROVIDERS: Visit Provider Internal Medicine Cardiovascular Disease | DX: I35.0 Nonrheumatic aortic (valve) stenosis (principal); I35.8 Other nonrheumatic aortic valve disorders; I34.81 Nonrheumatic mitral (valve) annulus calcification | CPT/HCPCS: 93306 ==

== ENCOUNTER → 2025-02-14 09:56 | Outpatient (REF) | payer MEDICARE, SELFPAY ==
--- OUTSIDE RECORDS SUMMARY | 2023-12-09 05:50 | XMS_ITS ---
Author Organization [facility] Address [address] [place] [phone] Care Team Providers Care Special Education Teacher Name Role Phone Ronak YOUNG, Nhan Primary Care Provider UnavailValente Ramon [phone] Problems Problem Type SNOMED Code ICD Code Onset Dates Problem Status W/U Status Risk Notes Problem Diverticulosis o f large intestine without perforation or abscess without bleeding (K57.30) Active confirmed Encounters Encounter Location Date Provider Diagnosis [facility] Out[place] [address] [place] [phone] 12/09/2023 Valente Manzo Rectal bleeding K6 2.5 [...] * JI MEEHAN MDOB:[birth year] (79 yo F)Acc No.[id number]:12/09/2023 COLON WITH MAC Patient: JI ABERNATHY Provider: Obie Manzo MD :1945 A ge:77 Y S ex:Female Date:12/09/2023 Address:[address] [id number] Pcp:Nhan Simons MD Subjective: * Chief Complaints: * * [...] MD Date: 0 12/09/2023 Generated for Gabriel hernandez/Elsie/Janayitting on: 0 02/14/2025 10:55 AM EDT
--- NOTE | ~2025-02-14 | NM_ITS ---
Lexiscan Myocardial perfusion study Indication: Chest discomfort Technique: The patient was brought in for a Lexiscan perfusion study on 02/14/2025 and was injected 0.4 mg of Lexiscan intravenously. Within a minute of this injection 30 mCi of sestamibi was given intravenously. Images were obtained using the SPECT gamma camera interlaced with the gating device. Images were obtained in supine position. Resting perfusion study was performed on 02/28/2025. Patient was administered 30 mCi of sestamibi intravenously at rest. Images were then obtained in supine position. Total DLP 180 mGy-cm. Images were processed with the software and compared side to side in short axis, horizontal long axis and vertical long axis views. Findings: Raw aquisition reviewed. Arms by the patient's side. The stress perfusion study showed decreased tracer uptake in the basal to mid part of inferolateral wall. No major improvement with CT attenuation correction. The gated study shows diminished LV systolic function with calculated LVEF of 45%. LV cavity is normal in size. The gated study shows diminished contractility in the inferolateral wall. Resting study shows decreased tracer uptake in the basal to mid part of inferolateral wall. No major improvement with CT attenuation correction. Gating at rest reveals diminished contractility in the basal to mid inferolateral wall. The findings are consistent with mixed perfusion defect in the basal to mid inferolateral wall. IL/IL cardiolite stress test Impression: 1. Myocardial perfusion imaging study shows mixed ischemia/infarct pattern in the basal to mid inferolateral wall. 2. Gated LVEF is 45% during stress and 58% during rest. Correlate with echocardiogram. 3. Transient ischemic dilatation not present. EKG component of the test reported separately. Electronically signed by: Leonid Mendoza MD 03/01/2025 11:08 AM EDT
--- NOTE | 2025-02-14 09:59 | CA_ITS ---
Acquisition Time: 2025-02-14 10:04:44 Total Exercise Time: 00:02:00 Test Indications: SOB , POST CABG Medications: SEE H&P Protocol: LEXISCAN Max HR: 72 BPM 50% of Pred: 142 BPM Max BP: 126/68 mmHG Max Work Load: 1.0 METS Pharmacological stress test woith Lexiscan while pt marches in chair, with reports of SOB and abdominal discomfort, without any arrythmias, with normotensive response to injection. Nondiagnostic EKG for ischemia. In recovery, pt treated with IVP Aminophylline 75 mg to reverse Lexiscan after which pt feeling back to baseline. Nuclear images pending. Test reviewed with Dr. Herrera. Referred By: Mono Juares Electronically Signed By: Mono Juares
--- OUTSIDE RECORDS SUMMARY | 2025-02-14 10:56 | XMS_ITS | Clinical Summary ---
Author Organization [facility] ity Address [address] [place] [address] Care Team Providers Care Electrostatic Powder Coating Technician Name Role Phone Unavailable Primary Care Provider [...] - 2023-2 5 season) 2024 10/22/2020, 10/01/2020 Depression Screening 05/26/2024 Falls Risk Assessment 05/26/2024 Hepatitis C Screening 05/26/2024 Osteoporosis Screening (Bone Density Screening) 05/26/2024 Social Influencers of Health Screening 05/26/2024 Influenza Vaccine (#1) 2025 HIB Vaccines Aged Out No longer eligi [...]
--- OUTSIDE RECORDS SUMMARY | 2025-02-14 10:56 | XMS_ITS | Patient Health Record ---
[facility] Address [address] [place] [address] Care Team Providers Care Environmental Designer Name Role Phone Nhan Simons MD Primary Care Provider Unavailab Dee Dee Parry Unavailable [phone] Arcenio Thayer Unavailable [phone] Cesar Castillo Unavailable [phone] Allergies Allergen (clinical drug ingredient) Drug/Non Drug Allergy documented on EMR Reaction Allergy Type Onset Date Status meperidine Demerol Unknown Drug Allergy Active Adhesive Unknown Allergy Active Results Component Value Reference Range Notes HEMOGLOBIN A1C (GLYCOHEMOGLO BIN) Reviewed date:05/18/2024 12:33:37 PM Interpretation: Performing Lab: Notes/Report: TOTAL HEMOGLOBIN (HGBA1C) 6.8 HEMOGLOBIN A1C (GLYCOHEMOGLO BIN) Reviewed date:08/26/2024 06:55:00 AM Interpretation: Performing Lab: Notes/Report: HEMOGLOBIN A1C % (HH) 6.8 Reason For Referral No Information Medications Medication SIG (Take, Route, Frequency, Duration) Notes Start Date End Date Status Vitamin D3 Active Iron Active Tylenol Active Pantoprazole Sodium 40 MG 1 tablet Orally Once a day; Duration: 30 day(s) Active Metoprolol Tartrate 75 MG 1 tablet with food Orally Twice a day; Duration: 30 day(s) 75 and 50 mg both Active Loratadine 10 MG 1 tablet Orally Once a day; Duration: 30 day(s) Active CeleBREX 200 MG 1 capsule with food Orally twice a day Active Extra Depth Orthopedic Shoes (1 Pair) with Customized Heat Molded Multidensity Innersoles (3 Pair) as directed Dx: NIDDM/Polyneuropathy (E11.42), Jenne Foot Deformity (M20.41,M20.42), Preulcerative Skin Lesion(s) (L85.1 11/18/2024 Active Biotin 5000 MCG 1 tablet Orally Once a day; Duration: 30 day(s) Active ASA 81 mg Active Glucosamine HCl 1500 MG 1 tablet Orally Once a day; Duration: 30 day(s) Not-Taking Allopurinol 300 MG 1 tablet Orally Once a day; Duration: 30 day(s) Active Clopidogrel Bisulfate 75 MG 1 tablet Orally Once a day; Duration: 30 day(s) Not-Taking amLODIPine Besylate 5 MG 1 tablet Orally Once a day; Duration: 30 day(s) Active Zetia 10 MG 1 [...] Problem Acquired hammer toe of right foot (7444242042952721 ) Other hammer toe(s) (acquired), right foot (M20.41) Active confirmed Response to treatment, Improvemen t Problem Acquired hammer toe of left foot (3308658055623270 ) Other hammer toe(s) (acquired), left foot (M20.42) Active confirmed Response to treatment, Improvemen t Problem Polyneuropathy due to type 2 diabetes mellitus (907583531) Type 2 diabetes mellitus with diabetic polyneuropathy (E11.42) Active confirmed Vital Signs Blood pressure diastolic 80 mm Hg 11/18/2024 Height 5 ft 5in in 11/18/2024 Blood pressure systolic 150 mm Hg 11/18/2024 Weight 200 lbs 11/18/2024 BMI 33.28 kg/m2 11/18/2024 Procedures Procedure Date Ordered Date Performed Result Body Sit e 70196-GQUFKEB NAIL, 6 OR MORE 08/25/2024 N/A 47889-JFPY SKIN LESIONS, OVER 4 08/25/2024 N/A 55110-MVCCYNK NAIL, 6 OR MORE 11/18/2024 N/A 91062-QUQB SKIN LESIONS, OVER 4 11/18/2024 N/A Encounters Encounter Location Date Provider Diagnosis [address] [address] 02/15/2024 Arcenio Thayer Pain in left foot [...] dysfunction (PTTD) of right lower extremity M76.[address] [address] 05/18/2024 Arcenio Thyaer Pain in left foot M79.672 ; Pain [...] dysfunction (PTTD) of right lower extremity M76.[address] [address] 08/25/2024 Dee Dee Burleson Type 2 diabetes mellitus with diabetic polyneuropathy E11.42 ; Tinea unguium B35.1 ; Other hammer toe(s) (acquired), right foot M20.41 and Other hammer toe(s) (acquired), left foot M20.42 [facility] [address] [address] 11/18/2024 Cesar Castillo Type 2 diabetes mellitus [...] X ray : Foot, left 3V 09/17/2020 03927-IWGUUEF NAIL, 6 OR MORE 08/25/2024 61595-EUQKPXW NAIL, 6 OR MORE 11/18/2024 50195-RNBE SKIN LESIONS, OVER 4 11/19/19 25 56455-VMBL SKIN LESIONS, OVER 4 08/25/19 25 63131-WDPP SKIN LESIONS, 2 TO 4 05/23/20 21 42871-JASP SKIN LESIONS, 2 TO 4 11/08/19 21 37657-VQNQ SKIN LESIONS, 2 TO 4 01/17/20 21 00808-VZPR SKIN LESIONS, 2 TO 4 09/04/19 22 E7610-CUECGKRL DYSTROPHIC NAILS ANY # F5350-JVQLENWO DYSTROPHIC NAILS ANY # Y0662-RQYVMNYC DYSTROPHIC NAILS ANY # Next Appt Details Provider Name:Dee Dee dawkins, 03/02/2025 02:30:00 PM, [address] [place], [address], Insurance Providers Payer Name Payer Address Payer Phone Subscriber Number Group Number Insured Name Patient Relationship to Insured Coverage Start Date Coverage End Date Medicare National Govt [employer] [address] [facility] [address] [id number] Cristy Simmons Self - patient is the insured [employer] [address] [place] [address] [phone] [id number] Cristy Simmons Self - patient is [...] Surgical History Surgery Date(Month/Year) CABG surgery X3 2020 LTKR 2013 colonoscopy Hospitalization History Reason Date(Month/Year) [facility]- rectal hemorrhaging 01/2024 [facility] - Open heart surgery 12/09/2019
== END ==
LOC: HO.CARD 09:56
DX: R06.02 Shortness of breath (principal)
CPT/HCPCS: 78452; 93017; A9500; J0280; J2785

== ENCOUNTER → 2025-02-14 09:59 | Outpatient (BNV) | payer MEDICARE, SELFPAY | DX: R06.02 Shortness of breath (principal); Z95.1 Presence of aortocoronary bypass graft; R10.9 Unspecified abdominal pain | CPT/HCPCS: 78452; 93016; 93018 ==

== ENCOUNTER 2025-03-02 09:42 | Outpatient (REF) | payer MEDICARE, SELFPAY ==
--- OUTSIDE RECORDS SUMMARY | 2023-12-09 05:50 | XMS_ITS ---
Author Organization [facility] Address [address] [place] [id number] Care Team Providers Care Ceramic Saw Tender Name Role Phone Ronak (RETIRED) Nhan YOUNG Primary Care Provider Unavailable Valente Manzo Unavailable [phone] Problems Problem Type SNOMED Code ICD Code Onset Dates Problem Status W/U Status Risk Notes Problem Diverticulosis o f large intestine without perforation or abscess without bleeding (K57.30) Active confirmed Encounters Encounter Location Date Provider Diagnosis [facility] [place] [address] [place] [phone] 12/09/2023 Valente Manzo Rectal bleeding K6 2.5 ; Diverticulosis of large intestine without perforation or abscess without bleeding K57.30 and Other hemorrhoids K64.8 Assessments Encounter Date Diagnosis (ICD Code) Assessment Notes Treatment Notes Treatment Clinical Notes Section Notes 12/09/2023 Rectal bleeding (ICD-10 - K62.5) 12/09/2023 Diverticulosis of large intestine without perforation or abscess without bleeding (ICD-10 - K57.30) 12/09/2023 Other hemorrhoids (ICD-10 - K64.8) Plan Of Treatment No Information Progress Notes * JI MEEHAN MDOB:[birth year] (79 yo F)Acc No.[id number]:12/09/2023 COLON WITH MAC Patient: JI ABERNATHY Provider: Obie Manzo MD :1945 A ge:77 Y S ex:Female Date:12/09/2023 Address:[address] [place], [id number] Pcp:Nhan Simons (RETIRED) MD Subjective: * Chief Complaints: * * Medical History: Objective: * Vitals: Assessment: * Assessment: 1. R ectal bleeding - K62.5 (Primary) 2 . D iverticulosis of large intestine without perforation or abscess without bleeding - K57.30 3 . O ther hemorrhoids - K64.8 Plan: * Treatment: * Procedure Codes: 4 5378 DIAGNOSTIC COLONOSCOPY, 0529F INTRVL 3+YRS PTS CLNSCP DOCD, 0528F RCMND FLW-UP 10 YRS DOCD, Modifiers: 1P * * The named appointment provid er may or may not be the originator of this progress note, and it is not deemed complete until electronically signed by the appointment provider. Sign off status: Pending * Provider: Obie Manzo MD Date: 0 12/09/2023 Generated for Gabriel hernandez/Elsie/Rosa Iselasmitting on: 0 03/02/2025 10:01 AM EDT
--- NOTE | ~2025-03-02 | MM_ITS ---
EXAMINATION: MM SCREENING DIGITAL BREAST TOMOSYNTHESIS, BILATERAL CLINICAL INFORMATION: Screening. Asymptomatic. COMPARISON: Mammography: Comparison is made with available priors TECHNIQUE: Digital breast mammography with tomosynthesis is performed in both the craniocaudal and mediolateral oblique views along with computer-aided detection (CAD). FINDINGS: There are scattered areas of fibroglandular density (ACR BI-RADS breast composition Category b). There are no significant masses, abnormal calcifications, or other abnormalities. MM/MM tomosynthesis screening BI IMPRESSION: No mammographic evidence of malignancy. ASSESSMENT: BI-RADS BI-RADS 1 - Negative RECOMMENDATION: Routine annual mammography screening. 1 year F/U This examination should not preclude the clinical evaluation of a suspicious palpable abnormality. This patient's information was entered into a reminder system with a target due date for their next mammogram. Electronically signed by: Halle Fields DO 03/13/2025 10:57 AM EDT
--- OUTSIDE RECORDS SUMMARY | 2025-03-02 10:02 | XMS_ITS | Clinical Summary ---
Author Organization [facility] ity Address [address] [place] [address] Care Team Providers Care Animal Science Instructor Name Role Phone Unavailable Primary Care Provider [...] - 2023-2 5 season) 2024 10/22/2020, 10/01/2020 Falls Risk Assessment 05/26/2024 Hepatitis C Screening 05/26/2024 Osteoporosis Screening (Bone Density Screening) 05/26/2024 Social Influencers of Health Screening 05/26/2024 Depression Screening 08/17/2024 Influenza Vaccine (#1) 2025 HIB Vaccines Aged [...]
--- OUTSIDE RECORDS SUMMARY | 2025-03-02 10:02 | XMS_ITS | Patient Health Record ---
Author Organization [facility] Address [address] [place] [address] Care Team Providers Care Prepress Stripper Name Role Phone Nhan Simons MD Primary Care Provider Unavailab Dee Dee Parry Unavailable [phone] Arcenio Thayer Unavailable [phone] Cesar Castillo Unavailable [phone] Allergies Allergen (clinical drug ingredient) Drug/Non Drug [...] Problem Acquired hammer toe of right foot (1013467151552526 ) Other hammer toe(s) (acquired), right foot (M20.41) Active confirmed Response to treatment, Improvemen t Problem Acquired hammer toe of left foot (2121704617216962 ) Other hammer toe(s) (acquired), left foot (M20.42) Active confirmed Response to treatment, Improvemen t Problem Polyneuropathy due to type 2 diabetes mellitus (983173080) Type 2 diabetes mellitus with diabetic polyneuropathy (E11.42) Active confirmed Vital Signs Blood pressure diastolic 80 mm Hg 11/18/2024 Height 5 ft 5in in 11/18/2024 Blood pressure systolic 150 mm Hg 11/18/2024 Weight 200 lbs 11/18/2024 BMI 33.28 kg/m2 11/18/2024 Procedures Procedure Date Ordered Date Performed Result Body Sit e 01663-TKXILJM NAIL, 6 OR MORE 08/25/2024 N/A 89652-TOSI SKIN LESIONS, OVER 4 08/25/2024 N/A 28161-MBZA SKIN LESIONS, OVER 4 11/18/2024 N/A 25247-PLJQZJJ NAIL, 6 OR MORE 11/18/2024 N/A Encounters Encounter Location Date Provider Diagnosis [address] [address] 05/18/2024 Arcenio Thayer Pain in left foot [...] dysfunction (PTTD) of right lower extremity M76.[address] [address] 08/25/2024 Dee Dee Burleson Type 2 diabetes mellitus with diabetic polyneuropathy E11.42 ; Tinea unguium B35.1 ; Other hammer toe(s) (acquired), right foot M20.41 and Other hammer toe(s) (acquired), left foot M20.[address] [address] 11/18/2024 Cesar Castillo Type 2 diabetes mellitus with diabetic polyneuropathy E11.42 ; Tinea unguium B35.1 ; Other hammer toe(s) (acquired), right foot M20.41 and Other hammer toe(s) (acquired), left foot M20.[address] [address] 02/28/2025 Dee Dee Burleson Assessments Encounter Date Diagnosis (ICD Code) Assessment [...] INSTRUCTIONS. pdf (DIABETIC FOOT CARE INSTRUCTIONS. pdf) 05/18/2024 Pain in right foot (ICD-10 - M79.671) 11/18/2024 Other hammer toe(s) (acquired), left foot [...] X ray : Foot, left 3V 09/17/2020 27169-RSBHHZC NAIL, 6 OR MORE 08/25/2024 45006-JMBWNNC NAIL, 6 OR MORE 11/18/2024 26458-HVTX SKIN LESIONS, OVER 4 11/19/19 25 18428-WPXH SKIN LESIONS, OVER 4 08/25/19 25 29402-BPSO SKIN LESIONS, 2 TO 4 05/23/20 21 30726-GFSY SKIN LESIONS, 2 TO 4 11/08/19 21 78324-VOTG SKIN LESIONS, 2 TO 4 01/17/20 21 63254-GVCV SKIN LESIONS, 2 TO 4 09/04/19 22 Y1172-ZKUWYGDH DYSTROPHIC NAILS ANY # E6992-IOWLMYDC DYSTROPHIC NAILS ANY # H6762-CFTWUBMA DYSTROPHIC NAILS ANY # Next Appt Details Provider Name:Dee Dee Shelby juancho, 03/20/2025 09:30:00 AM, [address] [place] [address], [address], Insurance Providers Payer Name Payer Address Payer Phone Subscriber Number Group Number Insured Name Patient Relationship to Insured Coverage Start Date Coverage End Date Medicare [facility] [address] [facility] [address] [phone] [id number] Cristy Simmons Self - patient is the insured [employer] [address] [place] [address] [phone] [id number] Cristy Simmons Self - patient is [...]
== END 2025-03-02 09:43 | disposition home or self-care (01) ==
LOC: HO.MAMMO 09:42
PROVIDERS: Visit Provider Internal Medicine
DX: Z12.31 Encounter for screening mammogram for malignant neoplasm of breast (principal)
CPT/HCPCS: 77063; 77067

== ENCOUNTER → 2025-03-02 09:45 | Outpatient (BNV) | payer MEDICARE, SELFPAY | PROVIDERS: Visit Provider Internal Medicine | DX: Z12.31 Encounter for screening mammogram for malignant neoplasm of breast (principal) | CPT/HCPCS: 77063; 77067 ==

== ENCOUNTER 2025-03-16 14:00 | Outpatient (AMB) | payer MEDICARE, SELFPAY ==
--- OUTSIDE RECORDS SUMMARY | 2025-03-02 10:30 | XMS_ITS ---
Author Organization [facility] Address [address] [place] [address] Care Team Providers Care Bilingual Sales Consultant Name Role Phone Ronak YOUNG, Nhan Primary Care Provider UnavailDee Dee Bonilla Unavailable [phone] Encounters Encounter Location Date Provider Diagnosis [facility] [address] [place] [address] 03/02/2025 Dee Dee Burleson Plan Of Treatment Next Appt Details Provider Name:Dee Dee dawkins, 03/20/2025 09:30:00 AM, [address] [place], [address], Progress Notes * Cristy SIMMONS MDOB:[birth year] (79 yo F)Acc No.[id number]:03/02/2025 Progress Note Patient: Cristy ABERNATHY Provider: Jayme Burleson DPM :1945 A ge:79 Y S ex:Female Date:03/02/2025 Address:[address] [place], [place] Pcp:Nhan Simons MD Subjective: * Chief Complaints: [...] DPM Date: 0 03/02/2025 Generated for Gabriel hernandez/Elsie/Janayitting on: 0 03/16/2025 02:13 PM EDT
--- NOTE | 2025-03-16 13:56 | A.OFFPC_ITS ---
Vital Signs 03/16/25 13:57 03/16/25 14:12 Height 5 ft 5 in Weight 199 lb BMI Reason not done Patient refused/unable BP 132/66 Blood Pressure Location Rt brachial Position Sitting Respiration 17 Pulse 70 Pulse Source Monitor Temp 97.8 F Temp Source Temporal Artery Scan Pulse Oximetry (%) 97 Oxygen Delivery Method Room Air Intake Visit Reasons: 3 MONTH FOLLOW UP-RAFAL Reiki Practitioner Required: No Accompanied by: Self / Same As Patient Allergies hydromorphone (Dilaudid) Allergy (Unknown, Verified 03/16/25 13:56) Anaphylaxis meperidine (Demerol) Allergy (Unknown, Verified 03/16/25 13:56) Anaphylaxis empagliflozin (From Jardiance) Adverse Reaction (Verified 03/16/25 13:56) High Sugars, felt loggy Xzkszma-COV-UnG Reductase Inhibitor Adverse Reaction (Verified 03/16/25 13:56) Muscle Pain Tobacco use date assessed: 03/16/25 HPI HPI Comments History of Present Illness Details This is a 79 year old female with a past medical history of hypertension, hyperlipidemia, diabetes, obesity, and CAD status post coronary artery bypass graft surgery in 2019 presenting to [facility] care. Transfer from Dr Simons CV: On norvasc, lopressor, praluent. Follows with [facility]. Recent abnormal stress test. She is scheduled for catheterization. She was having waves of fatigue, shortness of breath MSK: Follows with rheumatology dr Orozco. BH: On lopressor 100mg twice daily GERD: On pantoprazole. RSV: 05/2023 Tdap 04/2024 Pneumovax 2022, prevnar 13 2019 ROS CONSTITUTIONAL: Denies weight loss, fever and chills. HEENT: Denies changes in vision and hearing. RESPIRATORY: Denies SOB and cough. CV: Denies palpitations and CP GI: Denies abdominal pain, nausea, vomiting and diarrhea. : Denies dysuria and urinary frequency. MSK: Denies new myalgia and joint pain. SKIN: Denies rash and pruritus. NEUROLOGICAL: Denies headache PSYCHIATRIC: Denies recent changes in mood. PHYSICAL EXAM: GENERAL: Alert and oriented x 3. NAD EYES: EOMI. Anicteric. HENT: Moist mucous membranes. No scleral icterus. No cervical lymphadenopathy. LUNGS: Clear to auscultation bilaterally. CARDIOVASCULAR: Regular rate and rhythm. No murmur. No JVD. ABDOMEN: Soft, non-tender +bs EXTREMITIES: No edema. Non-tender. SKIN: No rashes or lesions. Warm. NEUROLOGIC: No focal neurological deficits. CN II-XII grossly intact PSYCHIATRIC: Cooperative. Appropriate mood and affect. [facility] Medical History [place] Urinary incontinence Osteoarthritis HTN (hypertension) CAD (coronary artery disease) Gout On beta padmini at home Lumbar herniated disc Scoliosis Chronic pain Neuropathy Spinal stenosis Nonrheumatic aortic (valve) stenosis Mixed hyperlipidemia Type 2 diabetes mellitus with unspecified complications Essential hypertension Atherosclerotic cardiovascular disease Surgical History History of quadruple bypass History of esophagogastroduodenoscopy (EGD) Hx of colonoscopy (~12/09/23) History of left knee replacement Family History Father No problems noted. Mother Diabetes Hypertension Social History Are you a primary child care teacher to a significant other at home: No Do you presently have visiting nurse or other home services: No Alcohol intake: former Patient Tobacco Use Status: Never used Tobacco e-Cigarette/Vaping Use: Never Used Physical exam (Primary Care) Vital Signs: Last Vital Signs Temp 97.8 F 03/16/25 14:12 Pulse 70 03/16/25 14:12 Resp 17 03/16/25 14:12 BP 132/66 03/16/25 14:12 Pulse Ox 97 03/16/25 14:12 Oxygen Delivery Method Room Air 03/16/25 14:12 Tobacco/Smoking Status: Tobacco use Status Tobacco use date assessed 03/16/25 03/16/25 13:58 Patient Tobacco Use Status Never used Tobacco 03/16/25 13:58 e-Cigarette/Vaping Use Never Used 03/16/25 13:58 Coding Level of Care Code New Pt Level 4 (16754) Complex EM visit Add On G2211 Diagnoses Type 2 diabetes mellitus with unspecified complications E11.8 Atherosclerotic cardiovascular disease I25.10 Status post coronary artery bypass graft Z95.1 Assessment & Plan Assessment & Plan (1) Type 2 diabetes mellitus with unspecified complications: Code(s): E11.8 - Type 2 diabetes mellitus with unspecified complications Category: Medical (2) Atherosclerotic cardiovascular disease: Code(s): I25.10 - Atherosclerotic heart disease of [place] coronary artery without angina pectoris Category: Medical (3) Status post coronary artery bypass graft: Code(s): Z95.1 - Presence of aortocoronary bypass graft Category: Surgical Plan 79 year old to establish care Past medical, surgical, social reviewed. CAD -upcoming catheterization Diabetes-Labs ordered. Orders: Orders Comprehensive Met. Panel 03/16/25 E11.8 - Type 2 diabetes mellitus with unspecified complications, E78.2 - Mixed hyperlipidemia, I10 - Essential (primary) hypertension Lipid Panel 3 Months E11.8 - Type 2 diabetes mellitus with unspecified complications, E78.2 - Mixed hyperlipidemia, I10 - Essential (primary) hypertension Hemoglobin A1c 03/16/25 E11.8 - Type 2 diabetes mellitus with unspecified complications, E78.2 - Mixed hyperlipidemia, I10 - Essential (primary) hypertension
[2025-03-16 14:12] VITALS: BP 132/66; PULSE 70; RESP 17; TEMP 36.6; O2SAT 97
--- OUTSIDE RECORDS SUMMARY | 2025-03-16 14:14 | XMS_ITS | Clinical Summary ---
Author Organization [facility] ity Address [address] [place] [address] Care Team Providers Care Accounts Payable Analyst Name Role Phone Unavailable Primary Care Provider [...]
== END 2025-03-16 14:48 | disposition home or self-care (01) ==
LOC: HO.HMCHD 14:01
PROVIDERS: PCP Family Medicine; Visit Provider Internal Medicine
DX: E11.8 Type 2 diabetes mellitus with unspecified complications (principal); I25.10 Atherosclerotic heart disease of native coronary artery without angina pectoris; Z95.1 Presence of aortocoronary bypass graft

== ENCOUNTER → 2025-03-16 14:00 | Outpatient (BNVA) | payer MEDICARE, SELFPAY | PROVIDERS: PCP Family Medicine; Visit Provider Internal Medicine | DX: Z76.89 Persons encountering health services in other specified circumstances (principal); E11.8 Type 2 diabetes mellitus with unspecified complications; I25.10 Atherosclerotic heart disease of native coronary artery without angina pectoris; I10 Essential (primary) hypertension; K21.9 Gastro-esophageal reflux disease without esophagitis; E78.5 Hyperlipidemia, unspecified; E66.9 Obesity, unspecified; Z79.899 Other long term (current) drug therapy; Z95.1 Presence of aortocoronary bypass graft | CPT/HCPCS: 99202 ==

== ENCOUNTER 2025-04-10 10:23 | Outpatient (REF) | payer MEDICARE, SELFPAY ==
--- OUTSIDE RECORDS SUMMARY | 2023-12-09 05:50 | XMS_ITS ---
Author Organization [facility] Address [address] [place] [phone] Care Team Providers Care Supervisory Historian Name Role Phone Ronak (RETIRED) hNan YOUNG Primary Care Provider Unavailable Valente Manzo Unavailable [phone] Problems Problem Type SNOMED Code ICD Code Onset Dates Problem Status W/U Status Risk Notes Problem Diverticulosis o f large intestine without perforation or abscess without bleeding (K57.30) Active confirmed Encounters Encounter Location Date Provider Diagnosis [facility] [place] [address] [place] [phone] 12/09/2023 Valente Manzo Rectal bleeding K6 2.5 [...] * JI MEEHAN MDOB:[birth year] (79 yo F)Acc No.[id number]:12/09/2023 COLON WITH MAC Patient: JI ABERNATHY Provider: Obie Manzo MD :1945 A ge:77 Y S ex:Female Date:12/09/2023 Address:[address] [place], [id number] Pcp:Nhan Simons (RETIRED) MD Subjective: * Chief [...] Generated for Gabriel hernandez/Elsie/Rosa Iselasmitting on: 0 04/10/2025 11:32 AM EDT
--- OUTSIDE RECORDS SUMMARY | 2025-03-02 10:30 | XMS_ITS ---
Author Organization [facility] Address [address] [place] [address] Care Team Providers Care Disc Inspector Name Role Phone Emilie Barnett Primary Care Provider Dee Dee Waters [phone] Encounters Encounter Location Date Provider Diagnosis [facility] [address] [place] [address] 03/02/2025 Dee Dee Burleson Plan Of Treatment Next Appt Details Provider Name:Dee Dee dawkins, 06/19/2025 11:15:00 AM, [address] [place], [address], Progress Notes * Cristy SIMMONS MDOB:[birth year] (79 yo F)Acc No.[id number]:03/02/2025 Progress Note Patient: Cristy ABERNATHY Provider: Jayme Burleson DPM :1945 A ge:79 Y S ex:Female Date:03/02/2025 Address:[address] [place], [place] Pcp:Emilie Barnett Subjective: * Chief Complaints: * [...] 03/02/2025 Generated for Gabriel hernandez/Elsie/Janayitting on: 0 04/10/2025 11:32 AM EDT
[2025-04-10 11:08] LABS: Hemoglobin A1C 177.0571 umol/L; Total Hemoglobin (HGBA1C) 3236.3917 umol/L
[2025-04-10 11:09] LABS: INTERNATIONAL NORM RATIO 0.9 (0.9-1.1); Prothrombin Time 9.8 SEC (10.9-12.4)
[2025-04-10 11:28] LABS: Hematocrit 37.4 % (37.0-47.0); Hemoglobin 12.0 g/dl (12.0-16.0); Mean Corpuscular HGB Conc 32.1 g/dl (31.0-35.0); Mean Corpuscular Hemoglobin 30.8 pg (27.0-33.0); Mean Corpuscular Volume 96.1 fL (80.0-98.0); NRBC Abs Auto 0.020 X10*3/uL (0.0-0.012); NRBC Pct Auto 0.4 /100WBC (0.0-0.2); Platelet Count 207 X10*3/uL (160-400); Red Blood Count 3.89 X10*6/uL (4.20-5.50); White Blood Count 5.2 X10*3/uL (4.8-10.8)
--- OUTSIDE RECORDS SUMMARY | 2025-04-10 11:33 | XMS_ITS | Clinical Summary ---
Author Organization [facility] ity Address [address] [place] [address] Care Team Providers Care Digital Project Coordinator Name Role Phone Unavailable Primary Care Provider [...]
[2025-04-10 11:41] LABS: Alanine Aminotransferase 18 U/L (0-31); Albumin Level 4.2 g/dL (3.5-5.0); Alkaline Phosphatase 79 U/L (39-117); Anion Gap 14 (12-20); Aspartate Amino Transferase 23 U/L (5-31); Blood Urea Nitrogen 36 mg/dL (9-16); Calcium 9.8 mg/dL (8.4-10.2); Carbon Dioxide 26 mmol/L (22-29); Chloride 105 mmol/L (96-108); Cholesterol 272 mg/dL (<200); Estimated Glomerular Filt Rate 39; HDL Cholesterol 29 mg/dL (>40); Potassium 4.2 mmol/L (3.3-5.1); Sodium 141 mmol/L (135-145); Total Protein 7.1 g/dL (6.5-8.0); Triglycerides 528 mg/dL (<150)
== END 2025-04-10 10:24 | disposition home or self-care (01) ==
LOC: HO.10HDL 10:23
PROVIDERS: Visit Provider Internal Medicine
DX: I25.10 Atherosclerotic heart disease of native coronary artery without angina pectoris (principal); I10 Essential (primary) hypertension; E78.2 Mixed hyperlipidemia; E11.8 Type 2 diabetes mellitus with unspecified complications
CPT/HCPCS: 36415; 80053; 80061; 83036; 85027; 85610

== ENCOUNTER → 2025-04-13 23:59 | Outpatient (BNV) | payer MEDICARE, SELFPAY | PROVIDERS: PCP Family Medicine; Visit Provider Internal Medicine Cardiovascular Disease | DX: I20.89 Other forms of angina pectoris (principal) | CPT/HCPCS: 93459; 99152 ==

== ENCOUNTER 2025-04-26 12:39 | Outpatient (AMB) | payer MEDICARE, SELFPAY ==
--- OUTSIDE RECORDS SUMMARY | 2023-12-09 05:50 | XMS_ITS ---
Author Organization [facility] Address [address] [place] [phone] Care Team Providers Care Satellite Communications Engineer Name Role Phone Ronak (RETIRED) Nhan YOUNG Primary Care Provider Unavailable Valente Manzo Unavailable [phone] Problems Problem Type SNOMED Code ICD Code Onset Dates Problem Status W/U Status Risk Notes Problem Diverticular disease of colon ([id number]) Diverticulosis of large intestine without perforation or abscess without bleeding (K57.30) Active confirmed Encounters Encounter Location Date Provider Diagnosis [facility] [place] [address] [place] [phone] 12/09/2023 Valente Manzo Rectal bleeding K6 2.5 [...] * JI MEEHAN MDOB:[birth year] (79 yo F)Acc No.[id number]:12/09/2023 COLON WITH MAC Patient: JI ABERNATHY Provider: Obie Manzo MD :1945 A ge:77 Y S ex:Female Date:12/09/2023 Address[address] [id number] Pcp:Nhan Simons (RETIRED) MD Subjective: * Chief [...] 12/09/2023 Generated for Gabriel hernandez/Elsie/Janayitting on: 0 04/26/2025 03:34 PM EDT
--- OUTSIDE RECORDS SUMMARY | 2025-03-02 10:30 | XMS_ITS ---
Author Organization [facility] Address [address] [place] [address] Care Team Providers Care Bulking Machine Operator Name Role Phone Emilie Barnett Primary Care Provider Dee Dee Waters [phone] Encounters Encounter Location Date Provider Diagnosis [facility] [address] [place] [address] 03/02/2025 Dee Dee Burleson Plan Of Treatment Next Appt Details Provider Name:Dee Dee dawkins, 06/19/2025 11:15:00 AM, [address] [place], [address], Progress Notes * Cristy SIMMONS MDOB:[birth year] (79 yo F)Acc No.[id number]:03/02/2025 Progress Note Patient: Cristy ABERNATHY Provider: Jayme Burleson DPM :1945 A ge:79 Y S ex:Female Date:03/02/2025 Address:[address] [place], [place] Pcp:Emilie Barnett Subjective: * Chief Complaints: * * Medical History: Objective: * Vitals: Assessment: Plan: * Treatment: * Images: * The named appointment provid er may or may not be the originator of this progress note, and it is not deemed complete until electronically signed by the appointment provider. Sign off status: Pending * Provider: Jayme Burleson DPM Date: 0 03/02/2025 Generated for Gabriel hernandez/Elsie/Kamron on: 0 04/26/2025 03:34 PM EDT
[2025-04-26 12:48] VITALS: BP 112/62; PULSE 77; BMI 32.3
--- NOTE | 2025-04-26 12:48 | MHC.OFFVIS ---
Vital Signs 04/26/25 12:48 Height 5 ft 5 in Weight 194 lb 0.108 oz BMI 32.3 BP 112/62 Blood Pressure Location Lt brachial Position Sitting Pulse 77 Pulse Source Pulse Oximeter Intake Visit Reasons: Follow up post cardiac cath Allergies hydromorphone (Dilaudid) Allergy (Unknown, Verified 03/16/25 13:56) Anaphylaxis meperidine (Demerol) Allergy (Unknown, Verified 03/16/25 13:56) Anaphylaxis empagliflozin (From Jardiance) Adverse Reaction (Verified 03/16/25 13:56) High Sugars, felt loggy Bpsjklp-BAG-EsK Reductase Inhibitor Adverse Reaction (Verified 03/16/25 13:56) Muscle Pain Medication List - Last Reconciled 04/26/25 by Leonid Mendoza MD acetaminophen 650 mg PO Q6H PRN alirocumab 75 mg subcut Q2W allopurinol 300 mg PO DAILY amlodipine 10 mg PO BEDTIME aspirin 81 mg PO DAILY biotin 1 mg PO DAILY celecoxib 200 mg PO BID cholecalciferol (vitamin D3) (Vitamin D3) 25 mcg PO DAILY cyclosporine 0.05% 1 drp ophthalmic (eye) BID loratadine 10 mg PO DAILY magnesium 250 mg PO DAILY magnesium oxide 400 mg PO DAILY meclizine 25 mg PO TID PRN metoprolol tartrate 75 mg PO BID pantoprazole 40 mg PO QPM HPI Comments Details: Cristy returns for follow-up regarding coronary artery disease. Has a background of type 2 diabetes, hypertension, dyslipidemia. In 2020, anginal chest pains led to cardiac catheterization and diagnosis of multivessel coronary disease. This led to coronary artery bypass surgery. Recently, she was seen by our nurse practitioner for complaints of fatigue, shortness of breath and intermittent chest discomfort. She describes that as a funny feeling across the chest which is intermittent. He has, that led to further workup including a diagnostic catheterization but she has been recommended just medical therapy. She states she has not had those symptoms again. She was not taking Praluent for cholesterol management but has resumed it after the catheterization. [facility] Medical History Gallstone Urinary incontinence Osteoarthritis HTN (hypertension) CAD (coronary artery disease) Gout On beta padmini at home Lumbar herniated disc Scoliosis Chronic pain Neuropathy Spinal stenosis Nonrheumatic aortic (valve) stenosis Mixed hyperlipidemia Type 2 diabetes mellitus with unspecified complications Essential hypertension Atherosclerotic cardiovascular disease Surgical History History of quadruple bypass History of esophagogastroduodenoscopy (EGD) Hx of colonoscopy (~12/09/23) History of left knee replacement Family History Father No problems noted. Mother Diabetes Hypertension Social History Are you a primary family day carer to a significant other at home: No Do you presently have visiting nurse or other home services: No Alcohol intake: former Patient Tobacco Use Status: Never used Tobacco e-Cigarette/Vaping Use: Never Used Review of Systems Const Denies weakness ENT Denies dizziness Card Denies chest pain, Denies chest pain with activity, Denies syncope, Denies rapid heart rate, Denies pedal edema, Denies edema, Denies leg edema, Denies lightheadedness, Denies palpitations, Denies dyspnea, Denies dyspnea on exertion and Denies orthopnea Resp Denies cough, Denies dyspnea and Denies dyspnea on exertion GI Denies hematochezia and Denies change in stool character Musc Denies abnormal gait, Denies muscle cramps, Denies muscle weakness, Denies numbness, Denies radiating pain into limb and Denies tingling Neuro Denies abnormal gait, Denies dizziness, Denies syncope, Denies numbness, Denies tingling and Denies weakness Endo Denies palpitations Physical Exam Vital Signs: Last Vital Signs Pulse 77 04/26/25 12:48 BP 112/62 04/26/25 12:48 BMI result Body Mass Index 32.3 Const General: comfortable and no acute distress Orientation/consciousness: patient oriented x3 HEENT Other: Unremarkable Head: Yes normal to inspection Neck Neck: Yes normal visual inspection Chest Chest palpation & inspection: normal inspection of the chest Resp Auscultation: clear to auscultation bilaterally Cardio Palpation: normal PMI Heart sounds: S1 normal heart sound present, S2 normal heart sound present, no gallops, no murmurs and no rubs GI Palpation (GI): Soft to palpation Back/Spine/Pelvis Other: unremarkable Skin General skin exam: no rashes or lesions noted Neuro General: patient oriented x3 Extrem General: Yes normal to inspection Psych Mental Status: mental status grossly normal Assessment & Plan Assessment & Plan (1) Atherosclerotic cardiovascular disease: Code(s): I25.10 - Atherosclerotic heart disease of [place] coronary artery without angina pectoris Category: Medical Plan: In the recent cardiac catheterization, mid LAD FLIGHT SOFTWARE TEST ENGINEER with patent NUNN to LAD. Mid circumflex FLIGHT SOFTWARE TEST ENGINEER, small size territory. Patent vein graft to PDA. Ostial PDA with 80-90% stenosis and PLV with 90% stenosis. Mid right FLIGHT SOFTWARE TEST ENGINEER. Overall, recommended medical therapy. Possibility of PCI through vein graft into the PDA/PLV if necessary but we will be a complicated procedure. We discussed about this today. As she is essentially free of symptoms at this time, continue medical therapy. She is already on a good dose of beta-blockers and amlodipine and continue the same. Blood pressure may not tolerate anything higher. Use sublingual nitroglycerin as needed. (2) Status post coronary artery bypass graft: Code(s): Z95.1 - Presence of aortocoronary bypass graft Category: Surgical Plan: Coronary anatomy as above. (3) Nonrheumatic aortic (valve) stenosis: Code(s): I35.0 - Nonrheumatic aortic (valve) stenosis Category: Medical Plan: Mild aortic stenosis on the echocardiogram. Can be followed periodically. (4) Essential hypertension: Code(s): I10 - Essential (primary) hypertension Category: Medical Plan: On metoprolol and amlodipine. Seems stable. (5) Mixed hyperlipidemia: Code(s): E78.2 - Mixed hyperlipidemia Category: Medical Plan: Per notes, statin intolerant due to muscle aches. She has been on Repatha but not taking it and more recently put on Praluent. We will follow up lipids. Advised her to be more compliant this time. Medications: New nitroglycerin do not exceed 3 doses per episode 0.4 mg sublingual Q5M PRN 30 tabs 5RF chest pain R07.2 - Precordial pain Coding Level of Care Code Est Pt Level 4 (59678) Complex EM visit Add On G2211 Diagnoses Atherosclerotic cardiovascular disease I25.10 Status post coronary artery bypass graft Z95.1 Nonrheumatic aortic (valve) stenosis I35.0 Essential hypertension I10 Mixed hyperlipidemia E78.2
--- OUTSIDE RECORDS SUMMARY | 2025-04-26 15:34 | XMS_ITS | Clinical Summary ---
Author Organization [facility] ity Address [address] [place] [address] Care Team Providers Care Warehouse Record Clerk Name Role Phone Unavailable Primary Care Provider [...]
--- OUTSIDE RECORDS SUMMARY | 2025-04-26 15:34 | XMS_ITS | Patient Health Record ---
Author Organization [facility] Address [address] [place] [address] Care Team Providers Care English And Reading Instructor Name Role Phone Ronak (RETIRED) Nhan YOUNG Primary Care Provider Unavailable Valente Manzo Unavailable [phone] Allergies Allergen (clinical drug ingredient) Drug/Non Drug Allergy documented on EMR Reaction Allergy Type Onset Date Status hydromorphone Dilaudid Unknown Drug Allergy Act wandy meperidine Demerol Unknown Drug Allergy Active Reason For Referral No Information Medications Medication [...] Problem Screening for malignant neoplasm of colon (745907470) Encounter for screening for malignant neoplasm of colon (Z12.11) Active confirmed Problem Pre-procedure evaluation check (132742438) Encounter for other preprocedural examination (Z01.818) Active confirmed Problem Acute posthemorrhagic anemia (190863451) Acute posthemorrhagic anemia (D62) Active confirmed Problem Diverticular disease of colon (093336471) Diverticulosis of large intestine without perforation or abscess without bleeding (K57.30) Active confirmed Problem Long-term current use of antiplatelet drug (511679694298251) rodent exterminator (current) use of aspirin (Z79.82) Active confirmed Problem Anemia (525593187) Anemia (D64.9) Active confir med Problem Gastrointestinal hemorrhage (40085415) Lower GI bleed (K92.2) Active confirmed Problem Hemorrhage of colon due to diverticulosis (796578134694175) Diverticulosis of colon with hemorrhage (K57.31) Active confirmed Problem Diverticulosis of colon (722403258) Diverticulosis of colon (K57.30) Active confirmed Problem Diverticular disease of colon (035988051) Colon, diverticulosis (K57.30) Active confirmed Problem Gastroesophageal reflux disease (disorder) (690733449) Chronic GERD (K21.9) Active confirmed Vital Signs Blood pressure diastolic 00 mm Hg 05/31/2024 Height 65 in 05/31/2024 Blood pressure systolic 00 mm Hg 05/31/2024 Weight 200 lbs 05/31/2024 BMI 33.28 kg/m2 05/31/2024 Encounters Encounter Location Date Provider Diagnosis [facility] [address] [place] [address] 05/31/2024 Valente Manzo Diverticulosis of co holly [...] Date MEDICARE OF [place] [address] [place] [address] [id number] JI MEEHAN Self - patient is the insured [employer] ATT[employer] CLAIMS [address] [place] [address] [id number] ZORANTERRENCE HOFFMANINE Self - patient is the insured Medical (General) History Medical History History ICD Code [place] [facility] [place]N OSTEOARTHITIS Diet-controlled DM OBESITY BURSITIS HERNIATED DISC L3 L4L5 S1 SPINAL STENOSIS SCOLIOSIS NEUROPATHY-CHRONIC PAIN Urinary incontinence Negative colonoscopy in 05/18 002(poor prep) and 08/2002 for evaluation of anemia Negative EGD 05/2002 negativ e except for an inflammatory polyp in the pylorus Denies NM,CVA,Lung disease,renal disease Colonoscopy in 2021 was very limited due to a poor prep, especially in the left colon Gallstones-asymptomatic--patient is awar e-discussed at 12/08 OV Negative colonoscopy in 2023 other than diverticulosis and hemorrhoids Recurrent lower GI bleeding from middle of December to early January,-required 2 units of blood at [facility] Surgical History Surgery Date(Month/Year) Left knee replacement 2014 4V-CABG 2019
--- OUTSIDE RECORDS SUMMARY | 2025-04-26 15:35 | XMS_ITS | Patient Health Record ---
Author Organization [facility] Address [address] [place] [address] Care Team Providers Care Sawyer Cork Slabs Name Role Phone Emilie Barnett Primary Care Provider Dee Dee Waters Unavailable [phone] Arcenio Thayer Unavailable [phone] Cesar Castillo Unavailable [phone] Allergies Allergen (clinical drug ingredient) Drug/Non Drug [...] (HH) 6.8 HEMOGLOBIN A1C (GLYCOHEMOGLO BIN) Reviewed date:03/20/2025 10:11:00 AM Interpretation: Performing Lab: Notes/Report: HEMOGLOBIN A1C % (HH) 6.4 Reason For Referral No Information Medications Medication SIG (Take, Route, Frequency, Duration) Notes Start Date End Date Status Pantoprazole Sodium 40 MG 1 tablet Orally Once a day; Duration: 30 day(s) Active Tylenol Active Loratadine 10 MG 1 tablet Orally Once a day; Duration: 30 day(s) Active Metoprolol Tartrate 75 MG 1 tablet with food Orally Twice a day; Duration: 30 day(s) 75 and 50 mg both Active amLODIPine Besylate 5 MG 1 tablet Orally Once a day; Duration: 30 day(s) Active Gabapentin 300mg three times a day orally daily Not-Taking Allopurinol 300 MG 1 tablet Orally Once a day; Duration: 30 day(s) Active Zetia 10 MG 1 tablet Orally Once a day Not-Taking Iron Active Vitamin D3 Active Praluent 75 MG/ML as directed Subcutaneous Active Extra Depth Orthopedic Shoes (1 Pair) with Customized Heat Molded Multidensity Innersoles (3 Pair) as directed Dx: NIDDM/Polyneuropathy (E11.42), Hammertoe Foot Deformity (M20.41,M20.42), Preulcerative Skin Lesion(s) (L85.1 11/18/2024 Active Glucosamine HCl 1500 MG 1 tablet Orally Once a day; Duration: 30 day(s) Not-Taking CeleBREX 200 MG 1 capsule with food Orally twice a day Active ASA 81 mg Active Clopidogrel Bisulfate 75 MG 1 tablet Orally Once a day; Duration: 30 day(s) Not-Taking Biotin 5000 MCG 1 tablet Orally Once a day; Duration: 30 day(s) Active Immunizations Vaccine Route Administration Date Status Comme nts Influenza Unknown 05/15/2022 Administered Influenza Unknown 05/18/2023 Administered Influenza Unknown 05/17/2024 Administered COVID-19 Pfizer BioNTech Vaccine Unknown 05/24/2022 Administered 1st 10/01/20 2nd 10/22/20 3rd 03/31/21 Social History Tobacco Use: Social History Observation [...] Problem Acquired hammer toe of right foot (9635605922607921 ) Other hammer toe(s) (acquired), right foot (M20.41) Active confirmed Response to treatment, Improvemen t Problem Acquired hammer toe of left foot (3950066911924886 ) Other hammer toe(s) (acquired), left foot (M20.42) Active confirmed Response to treatment, Improvemen t Problem Polyneuropathy due to type 2 diabetes mellitus (411346570) Type 2 diabetes mellitus with diabetic polyneuropathy (E11.42) Active confirmed Vital Signs Blood pressure diastolic 65 mm Hg 03/20/2025 Height 5 ft 5in in 03/20/2025 Blood pressure systolic 145 mm Hg 03/20/2025 Weight 200 lbs 03/20/2025 BMI 33.28 kg/m2 03/20/2025 Procedures Procedure Date Ordered Date Performed Result Body Sit e 05375-KLLPPRT NAIL, 6 OR MORE 08/25/2024 N/A 04773-GCVL SKIN LESIONS, OVER 4 08/25/2024 N/A 73065-QBQZOCN NAIL, 6 OR MORE 11/18/2024 N/A 87732-BJBK SKIN LESIONS, OVER 4 11/18/2024 N/A 69515-ZSYLKKL NAIL, 6 OR MORE 03/20/2025 N/A 31942-XLDA SKIN LESIONS, OVER 4 03/20/2025 N/A Encounters Encounter Location Date Provider Diagnosis [address] [address] 05/18/2024 Arcenio Thayer Pain in left foot [...] dysfunction (PTTD) of right lower extremity M76.[address] [address] 08/25/2024 Dee Dee Burleson Type 2 diabetes mellitus with diabetic polyneuropathy E11.42 ; Tinea unguium B35.1 ; Other hammer toe(s) (acquired), right foot M20.41 and Other hammer toe(s) (acquired), left foot M20.[address] [address] 11/18/2024 Cesar Castillo Type 2 diabetes mellitus with diabetic polyneuropathy E11.42 ; Tinea unguium B35.1 ; Other hammer toe(s) (acquired), right foot M20.41 and Other hammer toe(s) (acquired), left foot M20.[address] [address] 03/20/2025 Dee Dee Burleson Type 2 diabetes mellitus with diabetic polyneuropathy E11.42 ; Tinea unguium B35.1 ; Other hammer toe(s) (acquired), right foot M20.41 and Other hammer toe(s) (acquired), left foot M20.[address] [address] 02/28/2025 Dee Dee Burleson Assessments Encounter Date Diagnosis (ICD Code) Assessment Notes Treatment Notes Treatment Clinical Notes Section Notes 05/18/2024 Pain in left foot (ICD-10 - M79.672) 08/25/2024 Type 2 diabetes mellitus with diabetic polyneuropathy (ICD-10 - E11.42) 08/25/2024 Tinea unguium (ICD-10 - B35.1) 11/18/2024 Type 2 diabetes mellitus with diabetic polyneuropathy (ICD-10 - E11.42) 11/18/2024 Tinea unguium (ICD-10 - B35.1) 03/20/2025 Type 2 diabetes mellitus with diabetic polyneuropathy (ICD-10 - E11.42) 03/20/2025 Tinea unguium (ICD-10 - B35.1) 08/25/2024 Other [...] (ICD-10 - M20.42) Response to treatment,Impro vement 03/20/2025 Other hammer toe(s) (acquired), right foot (ICD-10 - M20.41) Response to treatment,Impro vement 03/20/2025 Other hammer toe(s) (acquired), left foot (ICD-10 [...] X ray : Foot, left 3V 09/17/2020 60052-RIWHQTK NAIL, 6 OR MORE 08/25/2024 75544-FHKMCYD NAIL, 6 OR MORE 11/18/2024 10546-FTOVNBS NAIL, 6 OR MORE 03/20/2025 04043-DSQS SKIN LESIONS, OVER 4 03/20/20 25 62957-TWBJ SKIN LESIONS, OVER 4 11/19/19 25 64723-PWEM SKIN LESIONS, OVER 4 08/25/19 25 96063-WPOU SKIN LESIONS, 2 TO 4 05/23/20 21 18194-KYBB SKIN LESIONS, 2 TO 4 11/08/19 21 38571-WFIJ SKIN LESIONS, 2 TO 4 01/17/20 21 34368-FXXE SKIN LESIONS, 2 TO 4 09/04/19 22 Y8993-VRCTRWPG DYSTROPHIC NAILS ANY # R6730-NUVYZZPO DYSTROPHIC NAILS ANY # 03 / M7567-VLGERVCA DYSTROPHIC NAILS ANY # Next Appt Details Provider Name:Dee Dee dawkins, 06/19/2025 11:15:00 AM, [address] [place], [address], Insurance Providers Payer Name Payer Address Payer Phone Subscriber Number Group Number Insured Name Patient Relationship to Insured Coverage Start Date Coverage End Date Medicare National Govt [facility] [address] [place] [address] [id number] Cristy Simmons Self - patient is the insured [employer] [address] [place] [address] [phone] [id number] Cristy Simmons Self - patient is [...] LTKR 2013 colonoscopy Hospitalization History Reason Date(Month/Year) [place]- rectal hemorrhaging 01/2024 [facility] - Open heart surgery 12/09/2019
== END 2025-04-26 13:06 | disposition home or self-care (01) ==
PROVIDERS: PCP Internal Medicine; Visit Provider Internal Medicine
DX: I25.10 Atherosclerotic heart disease of native coronary artery without angina pectoris (principal); Z95.1 Presence of aortocoronary bypass graft; I35.0 Nonrheumatic aortic (valve) stenosis; I10 Essential (primary) hypertension; E78.2 Mixed hyperlipidemia
CPT/HCPCS: 99214; G2211

== ENCOUNTER → 2025-04-26 12:39 | Outpatient (BNVA) | payer MEDICARE, SELFPAY | PROVIDERS: PCP Family Medicine; Visit Provider Internal Medicine | DX: I25.10 Atherosclerotic heart disease of native coronary artery without angina pectoris (principal); Z95.1 Presence of aortocoronary bypass graft; I35.1 Nonrheumatic aortic (valve) insufficiency; I10 Essential (primary) hypertension; E78.2 Mixed hyperlipidemia | CPT/HCPCS: 99212 ==

== ENCOUNTER 2025-07-24 12:00 | Outpatient (AMB) | payer MEDICARE, SELFPAY ==
--- NOTE | 2025-07-24 12:03 | MHC.OFFVIS ---
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 Allergies hydromorphone (Dilaudid) Allergy (Unknown, Verified 07/24/25 12:08) Anaphylaxis meperidine (Demerol) Allergy (Unknown, Verified 07/24/25 12:08) Anaphylaxis empagliflozin (From Jardiance) Adverse Reaction (Verified 07/24/25 12:08) High Sugars, felt loggy Mllympt-ORF-IdK Reductase Inhibitor Adverse Reaction (Verified 07/24/25 12:08) Muscle Pain Medication List - Last Reconciled 07/24/25 by Kayla Davis LPN acetaminophen 650 mg PO Q6H PRN alirocumab 75 mg subcut Q2W allopurinol 300 mg PO DAILY amlodipine 10 mg PO BEDTIME aspirin 81 mg PO DAILY biotin 1 mg PO DAILY celecoxib 200 mg PO BID cholecalciferol (vitamin D3) (Vitamin D3) 25 mcg PO DAILY cyclosporine 0.05% 1 drp ophthalmic (eye) BID loratadine 10 mg PO DAILY magnesium citrate 100 mg PO DAILY meclizine 25 mg PO TID PRN metoprolol tartrate 75 mg (1.5 x 50 mg) PO BID 90 days nitroglycerin 0.4 mg sublingual Q5M PRN pantoprazole 40 mg PO QPM HPI HPI CHRONIC LOW BACK PAIN: Details: History of Present Illness The patient is a 79 year old female presenting with chronic back pain. She has a history of disc herniation and disc thrombosis. An MRI from 2019 showed bone near the spine and nerve on her left side. Her history with injections for back pain includes a series from Dr. Villafuerte, with the first providing relief for 4.5 months, the second for about two months, and the third for only three to four weeks. A subsequent injection from another provider lasted only a couple of weeks. She reports that the first successful injection allowed her to participate in gardening. Within the last two years, she experienced a reaction to a local anesthetic injection, possibly marcaine, which she states resulted in a hospital admission at [facility] 2 years ago. Since this event, she has been hesitant to pursue further injections but is now reconsidering due to increased difficulty with walking safely. ER records do not indicate an allergic reaction as the reason for her visit 2 years ago. Her past medical history is significant for hypertension, hyperlipidemia, diabetes with an A1c of 7.2%, coronary artery disease with a CABG in 2019, and fibromyalgia characterized by widespread musculoskeletal pain and fatigue. She has scoliosis and lives alone. Pain Description - Location: The pain is in her lower back, predominantly on the left side, but also occurs on the right. - Radiation: The pain does not radiate into the legs. - Character: The patient describes a chronic ache and intermittent, extremely sharp, jabbing pain, comparing it to being sliced in half. - Onset/Timing: The pain has been chronic for years, with sharp episodes that are positional and last up to a minute or two. - Exacerbating Factors: The pain is exacerbated by certain resting positions and positional shifts. - Relieving Factors: Changing positions and walking can alleviate discomfort, and moving slowly after a sharp episode helps it subside. STELLA: 52% indicating severe disability. Physical Exam - Appears afebrile. - Alert and oriented. - Mood and affect appropriate. - Follows and participates in conversation appropriately. - Respiratory effort is unlabored. - Unable to lumbar extend/flex due to instability on the feet. Lumbar ROM is painful per patient. Results - Labs: HgbA1c was 7.2%. - Imaging: An MRI scan from 2019 is on file. Pain Management - Affect: The patient is seeking treatment with the hope of pain relief. - Analgesia: The patient reports she has received back injections in the past, including a series where the first lasted 4.5 months, the second 2 months, and the third less than 4 weeks. - Adverse Effects: The patient previously had a reaction to an injected anesthetic, possibly ropivacaine, that required hospitalization. - Activities of Daily Living: She has become less capable of walking safely due to her pain but was able to do some gardening after a previously successful injection. - Aberrant Drug Related Behaviors: None discussed. [facility] Medical History (Updated 07/25/25 @ 13:39 by Brad Vazquez MD) Obesity (BMI 30.0-34.9) Fibromyalgia Chronic low back pain with bilateral sciatica Osteoporosis screening Fatigue Numbness in both hands Medication management Gallstone Urinary incontinence Osteoarthritis HTN (hypertension) CAD (coronary artery disease) Gout On beta padmini at home Lumbar herniated disc Scoliosis Chronic pain Neuropathy Spinal stenosis Nonrheumatic aortic (valve) stenosis Mixed hyperlipidemia Type 2 diabetes mellitus with unspecified complications Essential hypertension Atherosclerotic cardiovascular disease Surgical History History of quadruple bypass History of esophagogastroduodenoscopy (EGD) Hx of colonoscopy (~12/09/23) History of left knee replacement Family History (Updated 06/01/25 @ 14:09 by Jazmine Lowery MA) Father No problems noted. Mother Diabetes Hypertension Social History Housing: House Are you a primary care transition mgr to a significant other at home: No Do you presently have visiting nurse or other home services: No Alcohol intake: former Patient Tobacco Use Status: Never used Tobacco e-Cigarette/Vaping Use: Never Used service: No Current occupational status: retired Cognitive needs: No Hearing needs: No Vision needs: Yes (rx glasses) Physical Exam Vital Signs: Last Vital Signs Pulse 58 07/24/25 12:05 Resp 16 07/24/25 12:05 BP 159/68 H 07/24/25 12:05 Pulse Ox 95 07/24/25 12:05 Oxygen Delivery Method Room Air 07/24/25 12:05 BMI result Body Mass Index 32.6 Assessment & Plan Assessment & Plan (1) Lumbar spondylosis: Code(s): M47.816 - Spondylosis without myelopathy or radiculopathy, lumbar region Category: Medical Plan Plan Patient was informed and verbally consented to the use of an ambient scribe for clinic note documentation during this visit. 1. Chronic Low Back Pain - Plan to proceed with diagnostic bilateral L3, L4, and L5 medial branch blocks, replicating a prior injection that was successful for the patient. - The procedure will be scheduled, likely in August, pending authorization from Medicare. - The patient has a history of an allergic reaction to a local anesthetic, but wishes to proceed with the injection. - If the medial branch blocks provide significant relief, future options include radiofrequency ablation (RFA) or a temporary peripheral nerve stimulator. - RFA may be technically challenging due to scoliosis, which alters anatomical landmarks. - The temporary nerve stimulator was discussed as a more forgiving alternative in terms of targeting; a brochure was provided to the patient for review. Discussion Notes I discussed the patient's history of chronic low back pain and her prior experiences with injections. We reviewed her history of a significant reaction to a local anesthetic, possibly marcaine, which led to hospitalization. Despite this, she wishes to proceed with another attempt at pain relief. My primary plan is to schedule her for bilateral L3-L4-L5 medial branch blocks, which we will seek Medicare authorization for. I explained that if the blocks are successful but temporary, we could consider radiofrequency ablation (RFA); however, I noted that her scoliosis makes targeting for RFA difficult due to distorted landmarks. As an alternative, I introduced the option of a temporary peripheral nerve stimulator, explaining it has a more forgiving radius of action for targeting. I informed her that this device would stay in for two months and would require assistance for dressing changes, and I provided her a brochure for her review. Patient Instructions - We will plan to schedule you for injections in your lower back (medial branch blocks). - We will try to schedule this for August, but we must first get approval from your insurance (Medicare). - If these injections help your pain, future options could include a nerve burning procedure (radiofrequency ablation) or a temporary nerve stimulator. - Please review the brochure you were given about the temporary nerve stimulator. - The temporary stimulator, if used, stays in for two months and requires help to change the dressing a couple of times a week. Coding Level of Care Code New Pt Level 4 (53793) Diagnoses Lumbar spondylosis M47.816
[2025-07-24 12:05] VITALS: BP 159/68; PULSE 58; RESP 16; O2SAT 95; BMI 32.6
== END 2025-07-24 12:47 | disposition home or self-care (01) ==
PROVIDERS: PCP Physician Assistant Medical; Visit Provider Internal Medicine
DX: M47.816 Spondylosis without myelopathy or radiculopathy, lumbar region (principal)
CPT/HCPCS: 99204

== ENCOUNTER → 2025-07-24 12:00 | Outpatient (BNVA) | payer MEDICARE, SELFPAY | PROVIDERS: PCP Physician Assistant Medical; Visit Provider Internal Medicine | DX: M47.816 Spondylosis without myelopathy or radiculopathy, lumbar region (principal); M54.50 Low back pain, unspecified; G62.89 Other specified polyneuropathies | CPT/HCPCS: 99202 ==